=== PATIENT | male | born 1940 | race Caucasian/White ===

== ENCOUNTER 2019-09-02 09:56 | Outpatient (CLI) | payer OTHER, SELFPAY ==
--- NOTE | ~2019-09-02 | CT_ITS ---
EXAMINATION: CT brain wo con EXAM DATE: 09/02/2019 10:19 INDICATION: Right frontal headache. Hypertension. TECHNIQUE: Spiral CT of the head was performed without contrast. Axial, coronal and sagittal images were reviewed. The dose-length product (DLP) for this examination was 605.33 mGy-cm. The exposure w as tailored according to patient size, and iterative reconstruction (ASIR) was used as additional dos e reduction technique. There is no prior study for comparison. FINDINGS: There is no acute intraparenchymal hemorrhage. No evidence of intraparenchymal brain mass lesion. No evidence of acute infarction. Please note that initial head CT has limited sensitivity f or small or acute infarctions. There is mild periventricular and subcortical hypodensity, nonspecific but probably related to small vessel ischemic disease. There is mild prominence of the sulci and v entricles related to cerebral atrophy. There is intracranial carotid arteriosclerosis. There are n o extra-axial collections. There is no mass effect or midline shift. Patient has had bilateral ocul ar lens surgery. Soft tissue is unremarkable. Bilateral maxillary sinus window procedures, chronic sinus wall thickening from history of chronic si nusitis. There is mild mucoperiosteal thickening. The mastoid air cells are well aerated. IMPRESSION: 1. No acute intracranial findings. 2. Chronic age related findings. Reviewed, dictated and finalized at location B. 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
== END 2019-09-02 09:57 | disposition home or self-care (01) ==
PROVIDERS: PCP Internal Medicine; Visit Provider Nurse Practitioner
DX: G44.52 New daily persistent headache (NDPH) (principal)
CPT/HCPCS: 70450

== ENCOUNTER 2020-01-09 07:47 | Outpatient (CLI) | payer OTHER, SELFPAY ==
--- NOTE | 2020-01-09 07:53 | ECHO_ITS ---
Patient Info Name: Hu Jasmine Age: 79 years : 1940 Gender: Male Ht: 71 in Wt: 178 lbs BSA: 2.02 m2 HR: 59 bpm BP: 156 / 87 mmHg Heart Rhythm: Sinus Rhythm Technical Quality: Good Exam Date: 01/09/2020 7:56 AM Exam Location: [facility] Patient Status: Outpatient Admit Date: 01/09/2020 Staff Ordering Physician: Margarito Cao DO Perioperative Tech: Joanie Fields RDCS Attending Provider: Margarito Cao DO Referring Physician: Kiley BOWSER; Exam Type: CA echo doppler color flow Study Info Indications I48.91 - UNSPECIFIED ATRIAL FIBRILLATION Complete two-dimensional, color flow and Doppler transthoracic echocardiogram is performed. Summary 1. Left ventricular chamber dimension is mildly enlarged. 2. Left ventricular systolic function is mildly reduced, estimated at 40-45%. 3. There is trace aortic valve regurgitation. 4. There is mild mitral valve regurgitation. 5. Left atrial chamber dimension is severely enlarged. 6. Pt in sinus rhythm at the time of this exam. Left Ventricle Left ventricular chamber dimension is mildly enlarged. Left ventricular systolic function is mildly reduced, estimated at 40-45%. Left ventricular septal wall motion is abnormal with septal motion related to bundle branch block. The left ventricular diastolic function is grade I diastolic dysfunction. Right Ventricle Right ventricular chamber dimension is normal. Left Atria Left atrial chamber dimension is severely enlarged. Right Atria Right atrial chamber dimension is mildly enlarged. Aortic Valve The aortic valve is trileaflet. There is mild aortic valve sclerosis. There is trace aortic valve regurgitation. Pulmonic Valve The pulmonic valve is not well visualized. Mitral Valve The mitral valve has normal leaflets. There is mild mitral valve regurgitation. Tricuspid Valve The tricuspid valve leaflets are normal. Pericardium/Pleural The pericardium appears normal. Aorta The aortic root size at the sinus of Valsalva is normal. Left Ventricular Outflow Tract Name Value Normal LVOT 2D LVOT Diameter 2.1 cm LVOT Doppler LVOT Peak Gradient 4 mmHg LVOT Mean Gradient 3 mmHg LVOT VTI 28 cm LVOT VTI/AV VTI Ratio 0.6 LVOT Stroke Volume 102 ml LVOT CO 5.5 l/min LVOT CI 2.7 l/min/m2 Pulmonic Valve Name Value Normal RVOT Doppler RVOT Peak Gradient 3 mmHg PV Doppler PV Peak Gradient 6 mmHg Mitral Valve Name Na
== END 2020-01-09 07:48 | disposition home or self-care (01) ==
PROVIDERS: PCP Internal Medicine; Visit Provider Internal Medicine
DX: I48.91 Unspecified atrial fibrillation (principal); I34.0 Nonrheumatic mitral (valve) insufficiency
CPT/HCPCS: 93306

== ENCOUNTER 2020-05-11 01:07 | Outpatient (CLI) | payer OTHER, SELFPAY ==
[2020-05-11 20:27] LABS: SARS-CoV-2 RNA PCR Negative
== END 2020-05-11 01:08 | disposition home or self-care (01) ==
LOC: ANHCOVIDDT 01:07
PROVIDERS: PCP Internal Medicine; Visit Provider Specialist
DX: Z01.812 Encounter for preprocedural laboratory examination (principal); Z20.828 Contact with and (suspected) exposure to other viral communicable diseases
CPT/HCPCS: 87635; C9803; U0003

== ENCOUNTER 2020-05-14 05:21 | Day surgery (SDC) | payer OTHER, SELFPAY ==
[2020-05-11 12:59] VITALS: BMI 24.5
[2020-05-14] VITALS (15 sets, daily range): BP systolic 138–161; BP diastolic 66–83; PULSE 56–70; RESP 13–20; TEMP 36.4–37.1; O2SAT 95–97; BMI 25.1
--- NOTE | 2020-05-14 07:00 | SUR.PREOP ---
ARRIVES AMBULATORY TO [facility] 4 W/ AT SIDE FOR SCHEDULED C W/ DR. PADGETT. DENIES CP OR SOB ON ARRIVAL. A&OX4. STEADY GAIT. ORIENTED TO ROOM, PLAN OF CARE, PROCEDURE. STATES TAKES PERITONEAL DIALYSIS DAILY; COMPLETED THIS AM. HAS ABDOMINAL PD CATHETER INTACT. IV STARTED, LABS SENT, VS OBTAINED, SKIN PREP COMPLETED, PULSES MARKED, CONSENT SIGNED. VERIFIED LAST DOSE OF COUMADIN WAS 05/08/2020. WILL CONTINUE TO MONITOR.
[2020-05-14 07:26] LABS: Basophils Percent Auto 0.4 % (0.2-1.2); Eosinophils Absolute Auto 0.6 K/mm3 (0-0.3); Eosinophils Percent Auto 6.7 % (0-4.4); Hematocrit 37.1 % (42.0-52.0); Hemoglobin 12.6 g/dL (14.0-18.0); Immature Granulocyte Absolute 0.03 K/mm3 (0.00-0.031); Immature Granulocyte Percent A 0.4 % (0-0.5); Lymphocytes Percent Auto 24.3 % (18.3-44.2); Mean Corpuscular Hemoglobin 31.5 pg (26-34); Mean Corpuscular Volume 92.8 fl (80-100); Mean Platelet Volume 10.6 fl (7.4-10.4); Monocytes Absolute Auto 1.2 K/mm3 (0.1-0.6); Monocytes Percent Auto 15.1 % (2.6-8.5); Neutrophils Absolute Auto 4.4 K/mm3 (1.3-6.7); Neutrophils Percent Auto 53.1 % (45.5-73.1); Platelet Count Result 165 k/mm3 (150-375); Red Cell Distribution Width 12.9 % (11.5-14.5); White Blood Count 8.2 K/mm3 (4.5-10.0)
[2020-05-14 07:34] LABS: INR 1.1; Prothrombin Time 14.3 Seconds (11.1-14.7)
[2020-05-14 07:37] LABS: Anion Gap 13 mmol/L (8-16); Blood Urea Nitrogen 49 mg/dL (9-20); Carbon Dioxide 26 mmol/L (22-30); Chloride 100 mmol/L (98-107); Estimated CRCL calculation 8 ml/min; Estimated Glomerular Filt Rate 7; Glucose 115 mg/dL (75-110); Potassium 3.7 mmol/L (3.4-5.0); Sodium 139 mmol/L (137-145)
--- NOTE | 2020-05-14 08:20 | SUR.PREOP ---
DR. PADGETT TO BEDSIDE TO SEE PT.
--- NOTE | 2020-05-14 09:20 | P.PCNCC_ITS ---
Cardiac Cath Procedure Note Date of procedure:: 05/14/20 Performing physician:: Gilberto Gonzalez MD Indication:: Coronary artery disease, previous bypass grafting evaluation prior to renal transplant Brief clinical history:: this is a 80-year-old man who underwent bypass grafting 20 years ago for treatment of multivessel coronary artery disease. He is asymptomatic of ischemic symptoms. His current procedure is being scheduled at the request of renal transplant service at [facility] as he is being considered considered a candidate for renal transplantation. Procedure Procedure performed:: Coronary angiography vein graft angiography radial artery graft angiography mammary artery graft angiography Sedation/Medication given:: fentanyl 50 mg Versed 2 mg case start time 8:46 a.m. case end time 9:10 a.m. sedation provided by Ava Burger RN, trained observer Access site:: right femoral artery Estimated blood loss:: 10-15 cc Procedure note:: patient was brought to the cardiac catheterization lab in the postabsorptive state the right femoral triangle was prepared and draped the usual fashion. Anesthesia was provided with 1% lidocaine infiltrated locally. Using the modified Seldinger technique the right femoral artery was punctured and a 5 [place] vascular sheath was placed. After this left heart catheterization was carried out. I utilized a 5 [place] FL4 catheter to engage inject the left coronary artery in multiple projections. After this I used a 5 5 [place] JR4 catheter to inject the right coronary artery, the vein graft to the RCA and the radial artery graft to the OM. A 5 [place] IM catheter was used to engage the internal mammary graft. The case was then terminated and patient was brought to holding area for manual sheath removal. He tolerated the procedure well there were no apparent complications. Findings:: Hemodynamics: Central aortic pressure 142/74 left main coronary artery is widely patent and significantly calcified the LAD is a medium caliber artery with mild proximal disease representing about 30-40% stenosis. There are 2 proximal diagonal branches that received filling which are free of significant disease. After this the [place] LAD is 100% occluded in its midportion circumflex is 100% occluded proximally right coronary artery is 100% occluded proximally saphenous vein graft to the RCA is a very large caliber segment of saphenous vein it is free of significant stenosis or degeneration. Its anastomosis into the distal RCA is patent and fills the distal right coronary system well radial artery graft to the 2nd OM is nicely patent it is smooth throughout its entire extent its proximal and distal anastomosis to the 2nd OM are nicely patent and fills this marginal branch with MICHAEL 3 flow. The remainder of the circumflex is not perfused. Left internal mammary graft to the LAD is medium caliber IM its distal anastomosis to the mid LAD is nicely patent and fills the LAD from the point of occlusion down to the apex without any occlusions there is minimal atherosclerosis in the distal portion of the LAD which is grafted Conclusion:: 1. multivessel coronary artery disease with mid occlusion of the LAD, proximal occlusion of the circumflex, proximal occlusion of the RCA. 2. Patent [place] to the LAD 3. patent radial artery graft to the 2nd OM 4. patent saphenous vein graft to the RCA Gilberto Gonzalez MD [facility]
--- NOTE | 2020-05-14 09:25 | SUR.PHASEII ---
BEGIN PHASE II RECOVERY. RETURNS TO HOUSING OFFICER 4 FROM BLEND TECHNICIAN S/P [facility] W/ DR. PADGETT. 5FR SHEATH INTACT R. FEM ARTERY. SITE SOFT, NONTENDER. NO BLEEDING OR HEMATOMA NOTED. R. PEDAL PULSE PALP. REVIEWED PLAN FOR SHEATH REMOVAL AND DISCUSSED BEDREST ACTIVITY RESTRICTIONS. VSS. MONITOR SR W/ 1ST DEG BLOCK AND PAC'S. WILL CONTINUE TO MONITOR. DR. PADGETT TO BEDSIDE TO SPEAK W/ PT AND .
--- NOTE | 2020-05-14 09:53 | SUR.PHASEII ---
MANUAL 5FR SHEATH PULL R. GROIN SITE PER PROTOCOL BY THIS RN UNTIL HEMOSTASIS ACHIEVED TO SITE. FIRM STEADY PRESSURE MAINTAINED TO SITE. TOLERATING WELL.
--- NOTE | 2020-05-14 10:23 | SUR.PHASEII ---
HEMOSTASIS ACHIEVED AFTER 30 MINUTES MANUAL PRESSURE HOLD TO R. GROIN PUNCTURE SITE. TOLERATED WELL. SITE DRESSED W/ GUAZE AND TEGADERM. SITE SOFT, NONTENDER. NO SIGNS OF BLEEDING OR HEMATOMA NOTED. AGAIN REVIEWED BEDREST ACTIVITY RESTRICTIONS W/ PT AND . WILL CONTINUE TO MONITOR.
--- NOTE | 2020-05-14 14:30 | SUR.PHASEII ---
BEDREST COMPLETE AT THIS TIME. SMALL BLOODY OOZE/SHADOW NOTED ON EDGE OF GUAZE DRESSING UPON GETTING OOB TO BATHROOM. OTHERWISE TOLERATED ACTIVITY WELL AND VSS. RETURNED TO CHAIR. WILL CONTINUE TO MONITOR.
--- NOTE | 2020-05-14 15:00 | SUR.PHASEII ---
INCREASED BLOODY OOZE TO R. GROIN DRESSING NOTED. SITE REMAINS SOFT, NONTENDER. NO ACTIVE BLEEDING OR HEMATOMA NOTED. VSS. PT. RETURNED TO BED BREIFLY AND GUAZE AND TEGADERM DRESSING TO R. GROIN PUNCTURE SITE CHANGED. WHEN DRESSING OFF, NO OOZE OR DRAINAGE FORM PUNCTURE SITE NOTED. RETURNED TO CHAIR AFTER DRESSING CHANGE. WILL CONTINUE TO MONITOR. DR. PADGETT NOTIFIED. NO NEW ORDERS.
--- NOTE | 2020-05-14 16:10 | SUR.PHASEII ---
NO FURTHER OOZE NOTED FROM R. GROIN PUNCTURE SITE. GUAZE AND TEGADERM DRESSING REMAINS C/D/I. AREA OTHERWISE CLEAR. DRESSING FOR DISCHARGE HOME.
--- NOTE | 2020-05-14 16:30 | SUR.PHASEII ---
END PHASE II RECOVERY. REVIEWED ALL DISCHARGE INSTRUCTIONS AND FOLLOW UP CARE W/ PT AND HIS . ALL QUESTIONS ANSWERED. VOICED UNDERSTANDING OF ALL. DISCHARGED HOME, OUT VIA WC TO 'S WAITING CAR, WITH ALL PERSONAL BELONGINGS AND DISCHARGE PACKET. NO C/O VOICED. NO DISTRESS NOTED.
== END 2020-05-14 16:30 | disposition home or self-care (01) ==
PROVIDERS: PCP Internal Medicine; Visit Provider Specialist
DX: I25.10 Atherosclerotic heart disease of native coronary artery without angina pectoris (principal); Z95.1 Presence of aortocoronary bypass graft; I12.0 Hypertensive chronic kidney disease with stage 5 chronic kidney disease or end stage renal disease; I48.91 Unspecified atrial fibrillation; Z99.2 Dependence on renal dialysis; N18.6 End stage renal disease
CPT/HCPCS: 36415; 80048; 85025; 85610; 93455; C1769; C1887; C1894; J0461; J1644; J2250; J3010; J7040

== ENCOUNTER 2020-08-04 01:29 | Outpatient (CLI) | payer OTHER, SELFPAY ==
[2020-08-04 18:46] LABS: SARS-CoV-2 RNA PCR Negative
== END 2020-08-04 01:30 | disposition home or self-care (01) ==
LOC: ANHCOVIDDT 01:29
PROVIDERS: Family Provider Internal Medicine; PCP Internal Medicine; Visit Provider Internal Medicine Gastroenterology
DX: Z01.812 Encounter for preprocedural laboratory examination (principal); Z20.822 Contact with and (suspected) exposure to COVID-19
CPT/HCPCS: C9803; U0003; U0005

== ENCOUNTER 2020-08-07 02:04 | Day surgery (SDC) | payer OTHER, SELFPAY ==
[2020-07-31 15:18] VITALS: BMI 25.2
[2020-08-07 11:13] VITALS: BP 141/66; PULSE 63; RESP 20; TEMP 36.3; O2SAT 98
[2020-08-07] MEDS: SODIUM CHLORIDE 0.9% IV 500 ML 10 ML IV CONT (11:23)
--- NOTE | 2020-08-07 11:27 | WPDANESEPPF ---
Anes - Initial Pre Proc Eval Procedure: Operation Date: 08/07/20 12:30 Proposed Procedures p Screening Colonoscopy - Juan Miguel Benitez MD Date/Time: 08/07/20 11:27 Surgeon: Juan Miguel Benitez MD Pre Op Diagnosis: neoplasm screening Patient Data Age: 80 Gender: M Height: 5 ft 11 in Weight: 79.5 kg Last Vital Signs Temp 97.3 F L 08/07/20 11:13 Pulse 63 08/07/20 11:13 Resp 20 08/07/20 11:13 BP 141/66 H 08/07/20 11:13 Pulse Ox 98 08/07/20 11:13 Allergies Allergy/AdvReac Type Severity Reaction Status Date / Time prednisone Allergy Irritable Verified 08/07/20 11:12 Home Medications Medication Instructions Recorded Confirmed Type vitamin B complex-vitamin C-folic 1 tablet PO DAILY 07/15/19 07/31/20 History acid 0.8 mg tablet simvastatin 80 mg tablet 80 mg PO DAILY 09/02/19 07/31/20 History furosemide 40 mg PO DAILY 05/11/20 07/31/20 History cholecalciferol (vitamin D3) 125 mcg PO DAILY 05/14/20 07/31/20 History warfarin 5 mg tablet 5 mg PO DAILY #30 tablet 07/30/20 07/31/20 Rx Patient hx anesthesia problems: none Family hx anesthesia problems: none PMFSH Past Medical History Medical History (Updated 07/17/20 @ 08:54 by Margarito Cao DO) Arthritis Asthma Atrial fibrillation Bradycardia CAD in [place] artery COPD (chronic obstructive pulmonary disease) Coronary artery disease ESRD on peritoneal dialysis Gout Hyperlipidemia Hypertension Kidney disease Mixed hyperlipidemia PHONG on CPAP Prediabetes Right ear impacted cerumen Rosacea URI, acute Surgical History Surgical History History of sinus surgery Hx of CABG Family History Family History Sibling Diabetes mellitus Mother Patient's mother is Hypertension Other Family history of coronary artery disease Social History Social History Smoking packs per day: 0.5 Smoking cigarettes per day: 10.0 Years smoked: 5 Smoking pack-years: 2.50 Smoking status: Former smoker Tobacco type: cigarettes Second hand tobacco smoke exposure: No Smoking end date: 07/06/1967 Alcohol intake: current Alcohol use details: 4 Substance use type: does not use Living arrangements: with family Spiritual care concerns: No Anes - Eval Final PreProcedure Day of Procedure 08/07/20 11:27 Patient weight: overweight Heart: regular rate and rhythm Lungs: clear to auscultation Airway: Mallampati scale class III Neurological: alert and oriented Last oral intake: >/= 8 hours ASA classification: III Emergent: no Anesthetic plan: proceed Anesthesia type and monitoring: general GIVS and standard monitoring Informed Consent: The patient's anesthetic plan and its attendant risks and benefits were discussed with the patient/family/POA. Questions were solicited and answers provided to the satisfaction of the patient/family/POA.
[2020-08-07 12:44] VITALS: BP 114/67; PULSE 61; RESP 17; O2SAT 97
--- NOTE | 2020-08-07 12:44 | PM.HPGS ---
History of Present Illness History of Present Illness Consent: Risks, benefits, and alternatives have been discussed and questions answered. Patient agrees to proceed with procedure. Chief complaint: neoplasm screening Narrative: Hu Jasmine is a 80 year old male here for screening colonoscopy, last one about 11 years ago. Review of Systems Constitutional: Constitutional: Denies headache(s) and Denies weakness Eyes: Eyes: Denies blurry vision ENT: Reports Normal hearing present, Denies headache(s) and Denies neck pain Cardiovascular: Cardiovascular: Denies chest pain and Denies dyspnea Respiratory: Respiratory: Denies dyspnea Gastrointestinal: Gastrointestinal: Reports no additional gastrointestinal complaints Genitourinary: Genitourinary: Denies dysuria Musculoskeletal: Musculoskeletal: Denies neck pain Integumentary/Breasts: Skin/Breast: Denies dry skin Neurologic: Reports Normal hearing present, Denies headache(s) and Denies weakness Psychiatric: Psychiatric: Denies anxiety Endocrine: Endocrine: Denies change in body appearance Hematologic/Lymphatic: Hematologic/Lymphatic: Denies easy bleeding Allergic/Immunologic: Allergic/Immunologic: Denies urticaria PMF Past Medical History Medical History (Updated 08/07/20 @ 12:45 by Juan Miguel Benitez MD) Arthritis Asthma Atrial fibrillation Bradycardia CAD in [place] artery Colon cancer screening COPD (chronic obstructive pulmonary disease) Coronary artery disease ESRD on peritoneal dialysis Gout Hyperlipidemia Hypertension Kidney disease Mixed hyperlipidemia PHONG on CPAP Prediabetes Right ear impacted cerumen Rosacea URI, acute Surgical History Surgical History History of sinus surgery Hx of CABG Family History Family History Sibling Diabetes mellitus Mother Patient's mother is Hypertension Other Family history of coronary artery disease Social History Social History Smoking packs per day: 0.5 Smoking cigarettes per day: 10.0 Years smoked: 5 Smoking pack-years: 2.50 Smoking status: Former smoker Tobacco type: cigarettes Second hand tobacco smoke exposure: No Smoking end date: 07/06/1967 Alcohol intake: current Alcohol use details: 4 Substance use type: does not use Living arrangements: with family Spiritual care concerns: No Meds Home Medications and Allergies Home Medications Medication Instructions Recorded Confirmed Type vitamin B complex-vitamin C-folic 1 tablet PO DAILY 07/15/19 07/31/20 History acid 0.8 mg tablet simvastatin 80 mg tablet 80 mg PO DAILY 09/02/19 07/31/20 History furosemide 40 mg PO DAILY 05/11/20 07/31/20 History cholecalciferol (vitamin D3) 125 mcg PO DAILY 05/14/20 07/31/20 History warfarin 5 mg tablet 5 mg PO DAILY #30 tablet 07/30/20 07/31/20 Rx Allergies Allergy/AdvReac Type Severity Reaction Status Date / Time prednisone Allergy Irritable Verified 08/07/20 11:12 Vital Signs Vital Signs - 24 hr 08/07/20 11:13 Temperature 97.3 F L Pulse Rate 63 Respiratory Rate 20 Blood Pressure 141/66 H Pulse Oximetry 98 Exam Const: General: comfortable and no acute distress HENMT: General nose exam: Normal nares present Eyes: General: appearance normal, both eyes and all related structures Neck: Neck: no JVD Resp: Auscultation: clear to auscultation bilaterally Cardio: Rate: regular rate Rhythm: regular rhythm GI: Inspection: non-distended GI Palp: Yes Soft to palpation Skin: General skin exam: normal color Neuro: General: gait normal Speech: normal speech Extrem: General: normal to inspection Psych: Mental Status: mental status grossly normal Assessment and Plan Assessment and plan (1) Colon cancer screening: Code(s): Z12.11 -
--- NOTE | 2020-08-07 12:50 | SUR.OPER ---
Resolution clip to cecal polyp Lot [id number], Exp Date: 2023-05-18
[2020-08-07 12:54] VITALS: BP 119/65; PULSE 58; RESP 22; O2SAT 96
[2020-08-07 13:04] VITALS: BP 123/81; PULSE 59; RESP 14; O2SAT 97
== END 2020-08-07 13:24 | disposition home or self-care (01) ==
PROVIDERS: Family Provider Internal Medicine; PCP Internal Medicine; Visit Provider Internal Medicine Gastroenterology
PROC: 0DJD8ZZ Inspection of Lower Intestinal Tract, Via Natural or Artificial Opening Endoscopic (ICD-10-PCS; CPT 45378; principal; 2020-08-07 12:30)
DX: Z12.11 Encounter for screening for malignant neoplasm of colon (principal); D12.0 Benign neoplasm of cecum; D12.2 Benign neoplasm of ascending colon; D12.3 Benign neoplasm of transverse colon; D12.4 Benign neoplasm of descending colon; K57.30 Diverticulosis of large intestine without perforation or abscess without bleeding; K64.8 Other hemorrhoids; I48.91 Unspecified atrial fibrillation; I25.10 Atherosclerotic heart disease of native coronary artery without angina pectoris; J44.9 Chronic obstructive pulmonary disease, unspecified; I12.0 Hypertensive chronic kidney disease with stage 5 chronic kidney disease or end stage renal disease; N18.6 End stage renal disease; Z99.2 Dependence on renal dialysis; R73.03 Prediabetes; M10.9 Gout, unspecified; E78.2 Mixed hyperlipidemia; G47.33 Obstructive sleep apnea (adult) (pediatric); Z79.01 Long term (current) use of anticoagulants; Z95.1 Presence of aortocoronary bypass graft; Z87.891 Personal history of nicotine dependence
CPT/HCPCS: 45381; 45385; 88305; C9803; J2704; J7040; U0003; U0005

== ENCOUNTER 2020-12-20 14:14 | Outpatient (CLI) | payer OTHER, SELFPAY ==
--- NOTE | ~2020-12-20 | US_ITS ---
EXAMINATION: US venous doppler LE RT EXAM DATE: 12/20/2020 15:13 INDICATION: Right leg pain, swelling. TECHNIQUE: Multiple grayscale, color flow and Doppler images of the right lower extremity deep venous system were obtained and reviewed. Correlation is made to 05/05/2018. FINDINGS: The right common femoral, femoral and profunda veins demonstrate normal color flow, respira tory variation, augmentation and compressibility. Compressibility, color flow confirmed within the r ight popliteal, posterior tibial, peroneal, and greater saphenous veins. There is a right-sided Bake r's cyst measuring 6.5 x 1.8 x 3.8 cm. IMPRESSION: 1. No right lower extremity deep venous thrombosis. 2. Moderate-sized Cortez's cyst. Reviewed, dictated and finalized at location B.
== END 2020-12-20 14:15 | disposition home or self-care (01) ==
LOC: ANHIMG 14:21
PROVIDERS: PCP Internal Medicine; Visit Provider Internal Medicine Nephrology
DX: R60.1 Generalized edema (principal); M71.22 Synovial cyst of popliteal space [Baker], left knee
CPT/HCPCS: 93971

== ENCOUNTER 2021-05-08 14:16 | Inpatient (IN) | payer OTHER, SELFPAY ==
[2021-05-08] VITALS (16 sets, daily range): BP systolic 125–154; BP diastolic 63–82; PULSE 57–76; RESP 12–23; TEMP 36.9–37.2; O2SAT 94–100; BMI 28.3
--- NOTE | ~2021-05-08 | XR_ITS ---
EXAMINATION: XR fl guide central line place DATE: 05/09/2021 12:53 INDICATION: Dialysis catheter insertion TECHNIQUE: 2 fluoroscopic images of the right side of the chest were obtained during procedure perfor med by Dr. Walden. Radiologist was not present for the imaging or procedure. The amount of fluorosco py time used during this procedure was 0.9 minutes. COMPARISON: 11/24/2018 FINDINGS: Images demonstrate placement of a large-bore dual-lumen right internal jugular central venous dialysi s catheter with distal tip at the superior cavoatrial junction. Visualized portions of the right lung are unremarkable. Median sternotomy wires consistent with prior coronary artery bypass grafting. IMPRESSION: 1. Right internal jugular dual-lumen central venous dialysis catheter with distal tip at the superior cavoatrial junction. Reviewed, dictated and finalized at location A. IMPRESSION: 1. Right internal jugular dual-lumen central venous dialysis catheter with dist al tip at the superior cavoatrial junction.
--- NOTE | ~2021-05-08 | XR_ITS ---
EXAMINATION: XR chest port-a-cath/central INDICATION: Dialysis catheter insertion TECHNIQUE: Portable AP chest at 1400 hours COMPARISON: 11/24/2018 FINDINGS: A right internal jugular dialysis catheter ends with its tip in the proximal right atrium. There is a small left pleural effusion. Mild diffuse interstitial pattern is present. Cardiomegaly is noted. There are changes of cardiac surgery. No pneumothorax is identified. IMPRESSION: 1. Right internal jugular dialysis catheter with its tip in the proximal right atrium. No pneumothora x. 2. Cardiomegaly with mild pulmonary edema. 3. Small left pleural effusion. Reviewed, dictated and finalized at location B. IMPRESSION: 1. Right internal jugular dialysis catheter with its tip in the proximal right atrium. No pneumothorax. 2. Cardiomegaly with mild pulmonary edema. 3. Small left pleural effusion.
--- NOTE | ~2021-05-08 | CT_ITS ---
EXAMINATION: CT abdomen pelvis wo con DATE: 05/08/2021 19:24 INDICATION: Epigastric abdominal pain for 2 weeks. Lack stools. TECHNIQUE: Computed tomography (CT) of the abdomen and pelvis was performed without intravenous contr ast. Automated exposure control and iterative reconstruction technique were employed. Exam dose: 105 0.10 mGy-cm total exam DLP. COMPARISON: None. FINDINGS: Status post sternotomy. Cardiomegaly. No pericardial effusion. Small bilateral pleural effusions. Bilateral lower lobe predominantly dependent atelectasis. There is mild intraperitoneal free air is identified primarily under the right diaphragm and anterior to the liver. Consider ruptured hollow intra-abdominal viscus. At least one small gallstone is suggested. Consider gallbladder ultrasound examination. No gallbladde r wall thickening or pericholecystic fluid or fat stranding. The liver, spleen, pancreas, and adrenal glands are unremarkable. There is severe bilateral renal atrophy. 1.7 cm hyperdense lesion of the right kidney is likely a hyperdense cyst. At least a couple of smalle r cysts of the right kidney are suggested. 2 cm upper pole left renal probable cyst. Pinpoint nonobstructing left renal calculus. No other urinary tract calculus or hydroureteronephrosis . There is extensive abdominal aortic and renal and prominent superior mesenteric artery as well as enmanuel ac artery calcification. No abdominal aortic aneurysm. No intraperitoneal or retroperitoneal or pelvi c mass lesion or adenopathy or ascites. Normal appendix. Prominent amount of fecal material in the colon. There are numerous diverticula of t he left colon; no CT evidence of diverticulitis. No bowel obstruction, bowel wall thickening, pneumat osis or intraperitoneal free air. The urinary bladder is unremarkable. There is prostate enlargement. There are bilateral small fat-containing inguinal hernias. A dialysis catheter is noted in the right lower abdomen and pelvic area. Degenerative changes of the thoracic and lumbar spine. Bilateral hip osteoarthritis. IMPRESSION: Mild intraperitoneal free air; consider ruptured hollow intra-abdominal viscus. Alternat ively, this may be iatrogenic; there is a dialysis catheter. Clinical correlation is advised Suspected cholelithiasis; consider gallbladder ultrasound correlation severe bilateral renal atrophy Bilateral renal cysts Pinpoint and fibulas renal calculus Normal appendix Diverticulosis of the left colon; no CT evidence of diverticulitis Bilateral small fat-containing inguinal hernias Reviewed, dictated and finalized at Location A. Reviewed, dictated and finalized at location A. IMPRESSION: Mild intraperitoneal free air; consider ruptured hollow intra-abdo malathi viscus. Alternatively, this may be iatrogenic; there is a dialysis cathet er. Clinical correlation is advised Suspected cholelithiasis; consider gallbladder ultrasound correlation severe bi lateral renal atrophy Bilateral renal cysts Pinpoint and fibulas renal calculus Normal appendix Diverticulosis of the left colon; no CT evidence of diverticulitis Bilateral small fat-containing inguinal hernias
[2021-05-08 17:57] LABS: Basophils Percent Auto 0.2 % (0.2-1.2); Eosinophils Absolute Auto 0.1 K/mm3 (0-0.3); Eosinophils Percent Auto 1.6 % (0-4.4); Hematocrit 27.9 % (42.0-52.0); Hemoglobin 9.1 g/dL (14.0-18.0); Immature Granulocyte Absolute 0.04 K/mm3 (0.00-0.031); Immature Granulocyte Percent A 0.5 % (0-0.5); Lymphocytes Absolute Auto 0.88 K/mm3 (0.9-3.2); Lymphocytes Percent Auto 10.7 % (18.3-44.2); Mean Corpuscular HGB Conc 32.6 g/dl (32-36); Mean Corpuscular Hemoglobin 31.8 pg (26-34); Mean Corpuscular Volume 97.6 fl (80-100); Mean Platelet Volume 11.8 fl (7.4-10.4); Monocytes Absolute Auto 1.3 K/mm3 (0.1-0.6); Monocytes Percent Auto 15.2 % (2.6-8.5); Neutrophils Absolute Auto 5.9 K/mm3 (1.3-6.7); Neutrophils Percent Auto 71.8 % (45.5-73.1); Platelet Count Result 195 k/mm3 (150-375); Red Blood Count 2.86 M/mm3 (4.6-6.20); Red Cell Distribution Width 14.8 % (11.5-14.5); White Blood Count 8.2 K/mm3 (4.5-10.0)
[2021-05-08 18:29] LABS: Lactic Acid Reflex 0.9 mmol/L (0.7-2.1)
[2021-05-08 18:31] LABS: INR 1.2
[2021-05-08 18:32] LABS: Partial Thromboplastin Time 35.5 SECONDS (22.3-36.8)
[2021-05-08] MEDS: MORPHINE SULFATE (*CRX) 4 MG/ML INJ IV PUSH (18:46)
[2021-05-08 18:55] LABS: Alanine Aminotransferase 26 U/L (4-50); Albumin Level 3.1 g/dL (3.5-5.1); Alkaline Phosphatase 95 U/L (38-126); Anion Gap 8 mmol/L (8-16); Aspartate Amino Transferase 31 U/L (17-59); Bilirubin,Total 0.5 mg/dL (0.2-1.3); Blood Urea Nitrogen 39 mg/dL (9-20); Calcium 9.5 mg/dL (8.4-10.2); Carbon Dioxide 34 mmol/L (22-30); Chloride 93 mmol/L (98-107); Estimated CRCL calculation 11 ml/min; Estimated Glomerular Filt Rate 10; Glucose 107 mg/dL (65-110); Lipase 29 U/L (23-300); Potassium 3.1 mmol/L (3.4-5.0); Sodium 135 mmol/L (137-145)
--- NOTE | 2021-05-08 19:13 | ED.GENADULT ---
HPI - General Adult General Chief complaint: Abdominal Pain Stated complaint: abd pain/pt see dr. zelaya Time Seen by Provider: 05/08/21 17:40 History of Present Illness HPI narrative: Patient is a 81-year-old male who presents ER with concerns for peritonitis. Reports 2 weeks ago patient had Pseudomonas grow out of his peritoneal dialysis alert fluid. He had been experiencing abdominal discomfort. He has been on IV antibiotics daily since then. Reports pain has been persistent and increasing over the last 2 days. He feels like his fluid is more cloudy. He discussed with his alteration tailor who recommended he come to the ER. He feels like he needs to be admitted to the hospital for a temporary hemodialysis catheter. Patient reports 19 pound weight gain with some abdominal distention as well that causes him to be short of breath. Endorses lower extremity edema. Patient also reports he is recently had dark black stool per rectum. This occurred 5 days ago when he discontinued his warfarin. He thinks his stool dark and again today but has not seen any bright red blood. Related Data Home Medications Medication Instructions Recorded Confirmed cholecalciferol (vitamin D3) 125 mcg PO DAILY 05/14/20 12/10/20 B complex-vitamin C-folic acid tablet 05/08/21 [Shawna-Cloton] hydralazine 05/08/21 nifedipine PO 05/08/21 sevelamer carbonate 05/08/21 simvastatin mg 05/08/21 warfarin 05/08/21 Allergies Allergy/AdvReac Type Severity Reaction Status Date / Time prednisone AdvReac Irritable Verified 05/08/21 18:22 Review of Systems Review of Systems: All systems reviewed & are unremarkable except as noted in HPI and below Constitutional: Constitutional: Denies chills, Denies fever(s) and Denies weakness ENT: Denies nasal congestion and Denies sore throat Cardiovascular: Cardiovascular: Denies chest pain, Denies rapid heart rate and Denies radiating jaw, neck or arm pain Respiratory: Respiratory: Denies cough and Denies dyspnea Gastrointestinal: Gastrointestinal: Reports abdominal pain, Denies diarrhea, Denies nausea and Denies vomiting [facility] Past Medical History Medical History Arthritis Asthma Atrial fibrillation Bradycardia CAD in [place] artery Colon cancer screening COPD (chronic obstructive pulmonary disease) Coronary artery disease ESRD on peritoneal dialysis Gout Hyperlipidemia Hypertension Kidney disease Mixed hyperlipidemia PHONG on CPAP Prediabetes Right ear impacted cerumen Divina STEVENSONI, acute Surgical History Surgical History History of sinus surgery Hx of CABG Family History Family History Sibling Diabetes mellitus Mother Patient's mother is Hypertension Other Family history of coronary artery disease Social History Social History Smoking packs per day: 0.5 Smoking cigarettes per day: 10.0 Years smoked: 5 Smoking pack-years: 2.50 Tobacco type: cigarettes Second hand tobacco smoke exposure: No Smoking end date: 07/06/1967 Alcohol intake: current Drinks per week: 8 Alcohol use details: 4 Substance use type: does not use Spiritual care concerns: No Exam Narrative: GENERAL: Well-appearing, well-nourished, and in no acute distress. HEAD: Normocephalic, atraumatic. EYES: PERRL and EOMI. CHEST: Clear to auscultation. No respiratory distress. HEART: Regular rate and rhythm. Normal peripheral pulses. ABDOMEN: Soft, diffuse abdominal tenderness with guarding, nondistended, guaiac negative stool on HEAVENLY. EXTREMITIES: Normal range of motion. 2+ edema. SKIN: Warm, dry, no rash. NEURO: Alert and oriented x3. PSYCH: Normal mood and affect. Course Course Emergency Course: Discussed case with general surgery who is happy to follow.
--- NOTE | 2021-05-08 22:04 | PM.IMHP ---
H&P: HPI History of Present Illness Date/Time: 05/08/21 22:04 Chief Complaint: abdominal pain Narrative: Patient is a 81-year-old male who presents ER with ongoing abdominal pain and discomfort. He reports 2 weeks ago he started having abdominal pain and was diagnosed with peritonitis with Pseudomonas growing in the peritoneal fluid. He reports he might have acquired that while he was down in [place] and contaminated his peritoneal dialysis catheter with water out there. He denies having any fever may be some chills but no sweating at night time. He was started on antibiotic via dialysis catheter by his bush hog operator. He has been on peritoneal dialysis for few years. He had similar episode of peritonitis few years back when he was switched to hemodialysis. He reports in spite of getting antibiotic his abdominal pain has gotten worse and hence came to the ER for evaluation. He also reports he has gained about 20 lb with abdominal distension and has made him short of breath along with lower extremity edema. He also has atrial fibrillation and is on warfarin. He reports dark black stool per rectum intermittently in the recent past and had held his warfarin. He has not seen any bright red blood in his stool. He has started back his warfarin again and his INR level was 1.2. Stool guaiac test done in the ER was negative . He was planned to be started on IV antibiotics due to ongoing peritonitis and switch him over to hemodialysis while getting treated for this. General surgery has been consulted for placement off hemodialysis catheter in the morning and also removal of peritoneal dialysis catheter. Review of Systems Review of Systems: - CONSTITUTIONAL: Denies weight loss, Reports weight gain, denies fever and may have some chills. - HEENT: Denies changes in vision and hearing - RESPIRATORY: reports SOB and deniescough. - CV: Denies palpitations and CP. - GI: report abdominal pain, denies nausea, vomiting and diarrhea. - : Denies dysuria and urinary frequency. - MSK: Denies myalgia and joint pain. - SKIN: Denies rash and pruritus. - NEUROLOGICAL: Denies headache and syncope. - PSYCHIATRIC: Denies recent changes in mood. Denies anxiety and depression. All systems reviewed & are unremarkable except as noted in HPI and below Constitutional: Constitutional: Reports fatigue and Reports weakness Neurologic: Reports weakness Endocrine: Endocrine: Reports fatigue PMFSH Past Medical History Medical History Arthritis Asthma Atrial fibrillation Bradycardia CAD in [place] artery Colon cancer screening COPD (chronic obstructive pulmonary disease) Coronary artery disease ESRD on peritoneal dialysis Gout Hyperlipidemia Hypertension Kidney disease Mixed hyperlipidemia PHONG on CPAP Prediabetes Right ear impacted cerumen [place] URI, acute Surgical History Surgical History History of sinus surgery Hx of CABG Family History Family History (Updated 05/08/21 @ 23:31 by Zuly Lisa RN) Sibling Diabetes mellitus Mother Patient's mother is Hypertension Family history of coronary artery disease Father Family history of coronary artery disease Social History Social History Smoking packs per day: 0.5 Smoking cigarettes per day: 10.0 Years smoked: 5 Smoking pack-years: 2.50 Smoking status: Current some day smoker Tobacco type: cigarettes Second hand tobacco smoke exposure: No Smoking end date: 07/06/1965 Alcohol intake: current Drinks per week: 3 Alcohol use details: 4 Substance use: never Substance use type: does not use Spiritual care concerns: No Meds Home Medications and Allergies Home Medications Medication Instructions Recorded Confirmed Type cholecalciferol (vitamin D3)
[2021-05-08 23:26] LABS: Add Urine Microscopic? YES; Appearance Urine Clear (Clear); Bilirubin Urine Negative (Negative); Blood Urine Negative (Negative); Color Urine Yellow (Yellow); Glucose Urine UA Negative (Negative); Ketones Urine Negative (Negative); Leukocyte Esterase Ur Negative LEU/UL (Negative); Nitrate Urine Negative (Negative); Protein Urine 2+ mg/dL (Negative); RBC Urine 0-2 /hpf (0-2); Specific Grav Ur 1.013 (1.001-1.035); Urobilinogen Urine Negative mg/dL (<2.0); WBC Urine 0-3 /hpf
--- NOTE | 2021-05-08 23:27 | ADMGEN ---
This patient, Hu Jasmine, was admitted to 3 Med Surg Room 302-01at 2300. Patient/family oriented to hospital policies and general routines including ID bracelet, bed and alarms, visiting hours, pain management, procedures, bathroom and other care routines, personal items, smoking policy, room service/diet, and visiting hours. Information on how to activate the Rapid Response Team has been discussed. Patient/Family are encouraged to report perceived risks to care and to ask questions if they do not understand what they are told or what they should do.
[2021-05-09] VITALS (26 sets, daily range): BP systolic 96–148; BP diastolic 48–83; PULSE 48–109; RESP 11–20; TEMP 36–37.2; O2SAT 93–100
[2021-05-09] MEDS: MORPHINE SULFATE (*CRX) 4 MG/ML INJ IV PUSH ×2 (01:06→08:22)
[2021-05-09 06:16] LABS: Basophils Percent Auto 0.2 % (0.2-1.2); Eosinophils Absolute Auto 0.2 K/mm3 (0-0.3); Eosinophils Percent Auto 3.9 % (0-4.4); Hematocrit 26.7 % (42.0-52.0); Hemoglobin 8.7 g/dL (14.0-18.0); Immature Granulocyte Absolute 0.02 K/mm3 (0.00-0.031); Immature Granulocyte Percent A 0.4 % (0-0.5); Lymphocytes Absolute Auto 0.84 K/mm3 (0.9-3.2); Lymphocytes Percent Auto 15.5 % (18.3-44.2); Mean Corpuscular HGB Conc 32.6 g/dl (32-36); Mean Corpuscular Hemoglobin 31.8 pg (26-34); Mean Corpuscular Volume 97.4 fl (80-100); Mean Platelet Volume 11.8 fl (7.4-10.4); Monocytes Percent Auto 17.9 % (2.6-8.5); Neutrophils Absolute Auto 3.4 K/mm3 (1.3-6.7); Neutrophils Percent Auto 62.1 % (45.5-73.1); Platelet Count Result 167 k/mm3 (150-375); Red Blood Count 2.74 M/mm3 (4.6-6.20); Red Cell Distribution Width 14.8 % (11.5-14.5); White Blood Count 5.4 K/mm3 (4.5-10.0)
[2021-05-09 06:26] LABS: Anion Gap 6 mmol/L (8-16); Blood Urea Nitrogen 43 mg/dL (9-20); Calcium 9.2 mg/dL (8.4-10.2); Carbon Dioxide 33 mmol/L (22-30); Chloride 94 mmol/L (98-107); Estimated CRCL calculation 10 ml/min; Estimated Glomerular Filt Rate 9; Glucose 95 mg/dL (65-110); Magnesium 2.2 mg/dL (1.6-2.3); Sodium 133 mmol/L (137-145)
--- NOTE | 2021-05-09 07:09 | PM.CNNEP ---
Assessment and Plan Assessment and plan (1) ESRD on peritoneal dialysis: Code(s): N18.6 - End stage renal disease; Z99.2 - Dependence on renal dialysis Status: Acute Assessment and Plan: The patient has end-stage renal disease. He has been getting peritoneal dialysis. Unfortunately he developed Pseudomonas infection. This has not responded to antibiotics. He still has belly pain is spite of being on 2 weeks of intraperitoneal antibiotics. I think the catheter needs to come out. We consult surgery last night for them to do that today. He will need hemodialysis while this is all healing. So they will put in a tunneled dialysis catheter today. Currently he is on gentamicin plus Fortaz. His belly feels better already with the IV antibiotics. Long discussion with the patient. (2) Peritonitis associated with peritoneal dialysis: Code(s): T85.71XA - Infection and inflammatory reaction due to peritoneal dialysis catheter, initial encounter Status: Acute Assessment and Plan: The patient is on antibiotics now. PD catheter is going to be removed. (3) Fluid overload, unspecified: Code(s): E87.70 - Fluid overload, unspecified Status: Acute Assessment and Plan: The patient has volume overloaded. Will do a dialysis today to get some fluid off. 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 (5) Hypertension: Code(s): I10 - Essential (primary) hypertension Status: Acute Assessment and Plan: Blood pressure is doing well. 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 Will give Epogen. No need for iron because he has an infection (7) Renal osteodystrophy: Code(s): N25.0 - Renal osteodystrophy Status: Acute Assessment and Plan: Will check a phosphorus level in the morning. History of Present Illness Reason for Consult Consult date: 05/09/21 Chief Complaint Chief complaint: peritonitis History of Present Illness Narrative: Hu is a very pleasant 81-year-old gentleman who has end-stage renal disease on peritoneal dialysis nightly. He also has arthritis, prediabetes, sleep apnea on CPAP, hyperlipidemia, coronary disease, hypertension, hyperlipidemia, COPD, gout. The patient was doing well on PD until about 2 weeks ago or so when he developed belly pain. He had a cloudy bag. He was placed on antibiotics. Cultures grew Pseudomonas. His antibiotics were adjusted. Early on he seemed to improve, but then had recurrent pain. He has continued to have cloudy bags with pain. His peritoneal dialysis has not been as affective lately and he has gained about 20lb. He went to see Coco his PD nurse yesterday and he was swollen and short of breath and still had belly pain so he was sent to the ER. In the ER he was evaluated. He had belly pain. CT scan showed some intraperitoneal free air, bilateral renal atrophy with cysts, 1 small gallstone without gallbladder thickening or pericholecystic fluid or fat stranding, diverticulosis, inguinal hernias, small renal calculus. The patient just had peritoneal fluid cultures done as an outpatient by Coco. He was given gentamicin plus Fortaz last night. This morning he says he feels a little bit better. He has a little bit less belly pain but still hurts. He is still short of breath but does not need oxygen. He uses CPAP machine every night but lately he has been using during the day 2 because of his breathing. He has no chest pain. No fevers. Review of Systems Constitutional: Constitutional: Reports no additional constitutional complaints Eyes: Eyes: Reports no additional eye complaints ENT: Reports system reviewed and no additional complaints, except
[2021-05-09 07:13] LABS: INR 1.3; Prothrombin Time 16.1 Seconds (11.1-14.7)
--- NOTE | 2021-05-09 08:34 | PM.IMPN ---
Progress Note: A&P Assessment and Plan (1) Peritonitis: Code(s): K65.9 - Peritonitis, unspecified Status: Acute (2) Hypertension: Code(s): I10 - Essential (primary) hypertension Status: Acute (3) Hyperlipidemia: Code(s): E78.5 - Hyperlipidemia, unspecified Status: Acute (4) Coronary artery disease: Code(s): I25.10 - Atherosclerotic heart disease of [place] coronary artery without angina pectoris Status: Acute (5) ESRD on peritoneal dialysis: Code(s): N18.6 - End stage renal disease; Z99.2 - Dependence on renal dialysis Status: Acute (6) COPD (chronic obstructive pulmonary disease): Code(s): J44.9 - Chronic obstructive pulmonary disease, unspecified Status: Acute (7) Gout: Code(s): M10.9 - Gout, unspecified Status: Acute (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 Repeat cultures were obtained at [facility] that today as well which will need to be tracked. Nephrology on board started on ceftazidime and gentamicin. Pharmacy to dose gentamicin. Renally dose of ceftazidime. Peritoneal dialysis catheter likely needs to be removed. General surgery has been consulted from the ER. Will need to switch peritoneal dialysis to hemodialysis in the interim. This is a 2nd episode of peritonitis and patient wants to stick to peritoneal dialysis as renal replacement therapy. Nephrology has also been consulted from the ER. General surgery will place temporary hemodialysis catheter in the morning. # intraperitoneal free air likely iatrogenic due to his presence of dialysis catheter # end-stage renal disease on peritoneal dialysis Has status previous history of infected peritoneal dialysis catheter 06/2020 # coronary artery disease status post CABG in 2000 # atrial fibrillation on chronic anticoagulation with warfarin INR low as recently stopped his warfarin due to dark stool. We will resume his warfarin and monitor INR daily. # dark stools guaiac test in the ER was negative will continue to monitor # PHONG on CPAP # hypertension # hyperlipidemia # prediabetes # gout # COPD/asthma # DVT prophylaxis on warfarin loss up therapeutic INR will resume # full code status 05/09/21 seen by Nephro POC remove PD catheter insert TDC start HD while hospitalized, IV abx for Pseudomonas peritonitis cont current care potassium repletion per nephrology BP at goal ceftazidime and gentamicin -> anticipate adjustment when cath tip cx results Subjective Date/time seen: 05/09/21 08:34 seen in HD doing ok at bedside all questions answered Exam Narrative: GENERAL: Well-appearing, well-nourished, and in no acute distress. HEAD: Normocephalic, atraumatic. EYES: EOMI. CHEST: Clear to auscultation. No respiratory distress. HEART: tachycardia w murmur Normal peripheral pulses. ABDOMEN: Soft, diffuse abdominal tenderness without guarding, distended, peritoneal dialysis catheter removal site covered by gauze dressing EXTREMITIES: Normal range of motion. 2+ edema bilateral lower extremity SKIN: Warm, dry, no rash. NEURO: Alert and oriented x3. no focal neurological deficits PSYCH: Normal mood and affect. Objective Data Vital Signs Vital Signs: Vital Signs - 24 hr 05/08/21 17:03 05/08/21 18:13 05/08/21 18:16 Temperature 98.4 F Pulse Rate 63 69 67 Respiratory Rate 18 23 H 18 Blood Pressure 140/63 144/74 H 154/73 H Pulse Oximetry 100 95 97 05/08/21 18:31 05/08/21 19:01 05/08/21 19:46
--- NOTE | 2021-05-09 09:04 | WPDHPUPDATE1 ---
History and Physical Update Update Date/Time: 05/09/21 09:04 History and Physical has been reviewed, including an updated exam of the patient. There are NO changes in the patient's condition. Risks, benefits, and alternatives have been discussed and questions answered. Patient agrees to proceed with procedure.
--- NOTE | 2021-05-09 09:04 | PM.CNGS ---
Assessment and Plan Assessment and plan (1) ESRD on peritoneal dialysis: Onset Date: ~05/2021 Code(s): N18.6 - End stage renal disease; Z99.2 - Dependence on renal dialysis Status: Acute Assessment and Plan: this was the main reason for the patient's admission. I was consulted to remove the peritoneal dialysis catheter which may be associated with his peritoneal infection. Also to place a dialysis catheter to be used for his dialysis over the next few months. Treatment will continue for his peritonitis and if once resolved patient will discuss with Dr. Bennett or Kayleen regarding further possibilities of peritoneal dialysis and how he was doing on that and how he does on the current hemodialysis. If surgery is completed soon of patient may dialyze this afternoon. (2) Erythropoietin deficiency anemia: Code(s): D63.1 - Anemia in chronic kidney disease Status: Acute (3) Fluid overload, unspecified: Onset Date: ~05/2021 Code(s): E87.70 - Fluid overload, unspecified Status: Acute Assessment and Plan: [place] to be related to poor dialysis with his current peritoneal dialysis and attempted treatment of catheter related peritonitis. (4) Peritonitis associated with peritoneal dialysis: Code(s): T85.71XA - Infection and inflammatory reaction due to peritoneal dialysis catheter, initial encounter Status: Acute (5) Atrial fibrillation: Code(s): I48.91 - Unspecified atrial fibrillation Status: Acute (6) Hypertension: Code(s): I10 - Essential (primary) hypertension Status: Acute (7) CAD in [place] artery: Code(s): I25.10 - Atherosclerotic heart disease of [place] coronary artery without angina pectoris Status: Acute History of Present Illness Consult details Consult date: 05/09/21 Reason for consult: abdominal pain Requesting physician: Deven Beyer MD Narrative: The patient is a pleasant 81-year-old white male who has been using peritoneal dialysis catheter. On the way back from [place] after recent trip he apparently developed some infection with the peritoneum and the peritoneal dialysis catheter. Dr. Beyer states that as an outpatient this was Pseudomonas. He has been treating this with antibiotics in the peritoneal fluid dialysis fluid but has not improved. Therefore, he was seen here at the hospital CT scan done that did show some free air up underneath the diaphragm but patient was otherwise stable with slightly elevated white count. Therefore, decision has been made to remove the currently infected up peritoneal dialysis catheter and the patient will need dialysis because he has gained weight. Therefore we are planning to do the clean procedure 1st and put in a tunneled dialysis catheter. The patient has had a previous right-sided tunneled hemodialysis Review of Systems Review of Systems: All systems reviewed & are unremarkable except as noted in HPI and below (HPI) Constitutional: Constitutional: Reports as per HPI, Denies chills, Denies fever(s), Reports weakness and Reports weight gain Eyes: Eyes: Reports no additional eye complaints ENT: Reports Normal hearing present and Denies dizziness Cardiovascular: Cardiovascular: Reports no additional cardiovascular complaints, Denies chest pain and Denies irregular heart rhythm Comments: History of renal failure chronic Respiratory: Respiratory: Reports no additional respiratory complaints Gastrointestinal: Gastrointestinal: Reports no additional gastrointestinal complaints, Denies abdominal pain and Reports bloating Comments: Last had fluid come out his peritoneal catheter telephone appointment clerk on 05/08/2021. Genitourinary: Genitourinary: Denies hematuria Musculoskeletal: Musculoskeletal: Denies back pain Integumentary/Breasts: Skin/Breast: Reports system reviewed and no additional complaints, except as docu Neurologic: Reports Normal hearing present, Denies Abnormal speech
--- NOTE | 2021-05-09 10:50 | PC.NURSE ---
To OR per bed @ 1005.
--- NOTE | 2021-05-09 11:09 | WPDANESEPPF ---
Anes - Initial Pre Proc Eval Procedure: Operation Date: 05/09/21 11:30 Proposed Procedures p Insertion Tunneled Dialysis Catheter, Remove Peritoneal Dialysis Catheter - Jhonatan Walden MD Date/Time: 05/09/21 11:09 Surgeon: Fabiano Berry MD Pre Op Diagnosis: peritonitis Patient Data Age: 81 Gender: M Height: 1.8 m Weight: 92.3 kg Last Vital Signs Temp 98.1 F 05/09/21 10:47 Pulse 109 H 05/09/21 10:47 Resp 16 05/09/21 10:47 BP 135/69 05/09/21 10:47 Pulse Ox 99 05/09/21 10:47 Allergies Allergy/AdvReac Type Severity Reaction Status Date / Time prednisone AdvReac Irritable Verified 05/08/21 18:22 Home Medications Medication Instructions Recorded Confirmed Type hydralazine 100 mg PO BID 05/08/21 05/08/21 History nifedipine 30 mg PO DAILY 05/08/21 05/08/21 History sevelamer carbonate 1,600 mg PO TIDWM 05/08/21 05/09/21 History simvastatin 80 mg PO DAILY 05/08/21 05/08/21 History warfarin 5 mg PO DAILY 05/08/21 05/08/21 History B complex-vitamin C-folic acid 1 tablet PO DAILY 05/09/21 05/09/21 History [Shawna-Colton] calcitriol 0.25 mcg PO DAILY 05/09/21 05/09/21 History cholecalciferol (vitamin D3) 50 mcg PO DAILY 05/09/21 05/09/21 History [Vitamin D3] cinacalcet 30 mg PO USEASDIRECTD 05/09/21 05/09/21 History furosemide 80 mg PO BID 05/09/21 05/09/21 History Laboratory Tests 05/08/21 05/08/21 05/08/21 17:01 17:11 17:11 WBC 8.2 K/mm3 K/mm3 (4.5-10.0) RBC 2.86 M/mm3 L M/mm3 (4.6-6.20) Hgb 9.1 g/dL L D g/dL (14.0-18.0) Hct 27.9 % L % (42.0-52.0) MCV 97.6 fl fl (80-100) MCH 31.8 pg pg (26-34) MCHC 32.6 g/dl g/dl (32-36) RDW 14.8 % H % (11.5-14.5) Plt Count 195 k/mm3 k/mm3 (150-375) MPV 11.8 fl H fl (7.4-10.4) Immature Gran % (Auto) 0.5 % % (0-0.5) Neut % (Auto) 71.8 % % (45.5-73.1) Lymph % (Auto) 10.7 % L % (18.3-44.2) Elk % (Auto) 15.2 % H % (2.6-8.5) Eos % (Auto) 1.6 % % (0-4.4) Baso % (Auto) 0.2 % % (0.2-1.2) Lymph # (Auto) 0.88 K/mm3 L K/mm3 (0.9-3.2) Elk # (Auto) 1.3 K/mm3 H K/mm3 (0.1-0.6) Eos # (Auto) 0.1 K/mm3 K/mm3 (0-0.3) Baso # (Auto) 0.0 K/mm3 K/mm3 (0.0-0.1) Abs Immat Gran (auto) 0.04 K/mm3 H K/mm3 (0.00-0.031) Absolute Neuts (auto) 5.9 K/mm3 K/mm3 (1.3-6.7) Absolute Nucleated RBC 0.0 K/mm3 K/mm3 (0.0-0.012) Nucleated RBC % 0.0 % % (0.0-0.2) PT INR APTT Sodium 135 mmol/L L mmol/L (137-145) Potassium 3.1 mmol/L L mmol/L (3.4-5.0) Chloride 93 mmol/L L mmol/L (98-107) Carbon Dioxide 34 mmol/L H mmol/L (22-30) Anion Gap 8 mmol/L mmol/L (8-16) BUN 39 mg/dL H D mg/dL (9-20) Creatinine 5.40 mg/dL H mg/dL (0.7-1.3) Estim Creat Clear Calc 11 ml/min ml/min Estimated GFR 10 L (59 - ) Glucose 107 mg/dL mg/dL (65-110) Lactic Acid Calcium 9.5 mg/dL mg/dL (8.4-10.2) Magnesium Total Bilirubin 0.5 mg/dL mg/dL (0.2-1.3) AST 31 U/L U/L (17-59) ALT 26 U/L U/L (4-50) Alkaline Phosphatase 95 U/L U/L (38-126) Total Protein 6.0 g/dL L g/dL (6.3-8.2) Albumin 3.1 g/dL L g/dL (3.5-5.1) Lipase 29 U/L U/L (23-300) Urine Color Yellow (Yellow) Urine Appearance Clear (Clear) Urine pH 7.0 (5.0-9.0) Ur Specific [place] 1.013 (1.001-1.035) Urine Protein 2+ mg/dL H mg/dL (Negative) Urine Glucose (UA) Negative mg/dL mg/dL (Negative) Urine Ketones Negative mg/dL mg/dL (Negative) Ur Blood (Man) Negative (Negative) Urine Nitrate Negative (
[2021-05-09] MEDS: SODIUM CHLORIDE 0.9% IV 500 ML 30 ML IV CONT (11:45)
[2021-05-09] MEDS: ceFAZolin SODIUM 1 GM VIAL IV PUSH (12:16)
[2021-05-09] MEDS: HEPARIN SODIUM 1,000 UNITS/ML VIAL 1000 UNITS IV PUSH (12:19)
--- NOTE | 2021-05-09 15:39 | PC.NURSE ---
From OR to Room 308 for HD around 1510. Report from Nancy @ 2379.
[2021-05-09 18:24] LABS: Hepatitis B Surface Antigen Negative (Negative)
[2021-05-09 18:41] LABS: Hepatitis B Surface Anti Res Negative
--- NOTE | 2021-05-09 18:43 | W.PM.PROC2 ---
Procedure Note - Detailed Date of Procedure 05/09/21 Pre-op Diagnosis 1. peritonitis related to infected peritoneal dialysis catheter 2. end-stage renal disease with need for dialysis Post-op Diagnosis same Procedure Performed 1. insertion of tunneled dialysis catheter for hemodialysis 2. Removal of infected peritoneal dialysis catheter Surgeon Jhonatan Walden MD Insurance Consultant Regina ED[place], OR 1st assist Anesthesia other ( G IV S plus local anesthetic) Indications The patient has known peritonitis related to his peritoneal dialysis catheter. Treatment had been tried as an outpatient with antibiotic included in his peritoneal dialysis fluid. This did not seem to continue working and patient had increased pain yesterday. Therefore, brought to the ER and after CT scan showed some free air there was decided to keep the patient and consider removal of the catheter in view of infection with Pseudomonas resistant to antibiotics being used. Dr. Beyer asked that I see the patient and consider removing the peritoneal dialysis catheter for source control and then also placing a clean hemodialysis catheter that could be used to help the patient's dialysis needs. Findings 1. Normal appearing vascular anatomy in the right neck 2. Cloudy yellowish fluid as in exudate around and through the peritoneal dialysis catheter upon removal. Description of Procedure The patient was placed in the supine position on the operating table and after induction of adequate mask general anesthesia by the nurse decorating instructor, we carefully rotated the patient's head and tilted slightly to the left then prepping both sides of the neck and chest with chlorhexidine. After waiting 3 minutes I carefully draped the patient, and we performed a time-out confirming the patient's site of surgery. Because of the patients size, a 28 cm DuraFlow catheter was selected. Using the ultrasound probe we carefully examined the anatomy in the right neck and saved a image of this in the chart. I used ultrasound to identify the right jugular vein in the mid neck and this was cannulated under direct vision with an 18-gauge Arrow needle on a syringe. Good dark blood was aspirated, the J-guidewire was advanced through the needle and into the central venous system using the usual Seldinger technique. C-arm fluoroscopy was used to confirm that the wire was then through the central venous system and then we removed the needle and blue guide off the wire. Following this, we measured the DuraFlow catheter such that the tip would be just into the right atrium or in the distal superior vena cava. A hemostat was placed on the drapes over the chest to guide where we would place this. Then the catheter was measured back to the entry site of the J- wire in a curvilinear fashion and down to the patient's chest overlying the right clavicle. Local anesthetic was placed into 3 león, the exit site and then 2 more on the patient's lateral neck such that a curvilinear path could be dissected through the subcutaneous tissues up to the insertion site on the patients right neck. Local anesthetic was infiltrated along the tract prior to tunneling. Incisions were made with an 11 blade knife at the exit site and the 2 counter incisions and then also an 11 blade at the wire. The tunneling device was connected to the catheter and this was pulled through these incisions to make the subcutaneous tunnel a curvilinear course through the subcutaneous tissues to the insertion site. Then the wire was serially dilated with a 12, 14, and then a 16-Malay dilator over the pull away sheath. We watched the 16-Malay dilator and sheath go down into the central venous system with C-arm fluoroscopy and then removed the dilator & wire after carefully covering the end of the catheter. I lost some blood, as we then inserted the catheter down into the central venous system. The catheter was held in place with a DeBakey forceps and then we carefull
[2021-05-09] MEDS: HYDROcodone/acetaminophen (*CRX) 5-325 MG TABLET 1 TAB PO (20:39)
[2021-05-09] MEDS: SENNA/DOCUSATE SODIUM TABLET 2 TAB PO (20:39)
--- NOTE | 2021-05-09 23:46 | PC.NURSE ---
This Nurse non-admin dialysis medications that were not charted on given by dialysis nurse on 05/09/21.
[2021-05-10] VITALS (12 sets, daily range): BP systolic 95–128; BP diastolic 45–64; PULSE 61–81; RESP 16–20; TEMP 36.1–37; O2SAT 96–100
[2021-05-10] MEDS: HYDROcodone/acetaminophen (*CRX) 5-325 MG TABLET 1 TAB PO ×2 (00:35→14:38)
[2021-05-10 03:08] LABS: Hematocrit 25.7 % (42.0-52.0); Hemoglobin 8.2 g/dL (14.0-18.0); Mean Corpuscular HGB Conc 31.9 g/dl (32-36); Mean Corpuscular Hemoglobin 32.4 pg (26-34); Mean Corpuscular Volume 101.6 fl (80-100); Mean Platelet Volume 11.3 fl (7.4-10.4); Platelet Count Result 173 k/mm3 (150-375); Red Blood Count 2.53 M/mm3 (4.6-6.20); Red Cell Distribution Width 14.9 % (11.5-14.5); White Blood Count 6.3 K/mm3 (4.5-10.0)
[2021-05-10 03:13] LABS: INR 1.3; Prothrombin Time 16.1 Seconds (11.1-14.7)
[2021-05-10 03:35] LABS: Gentamicin Peak 5.1 ug/mL (5.0-12.0)
[2021-05-10 03:44] LABS: Anion Gap 6 mmol/L (8-16); Blood Urea Nitrogen 25 mg/dL (9-20); Calcium 8.8 mg/dL (8.4-10.2); Carbon Dioxide 30 mmol/L (22-30); Chloride 98 mmol/L (98-107); Estimated CRCL calculation 16 ml/min; Estimated Glomerular Filt Rate 15; Glucose 108 mg/dL (65-110); Phosphorus 3.6 mg/dL (2.5-4.5); Potassium 3.2 mmol/L (3.4-5.0); Sodium 134 mmol/L (137-145)
[2021-05-10] MEDS: SEVELAMER CARBONATE 800 MG TABLET 1600 MG PO ×3 (08:51→17:24)
[2021-05-10] MEDS: hydrALAZINE HCL 50 MG TABLET 100 MG PO ×2 (08:51→17:25)
[2021-05-10] MEDS: NIFEdipine 30 MG TAB.ER.24 PO (08:52)
--- NOTE | 2021-05-10 09:40 | PC.NURSE ---
patient to dialysis per chair
[2021-05-10] MEDS: EPOETIN ALFA-EPBX 10,000 UNITS/ML VIAL 10000 UNITS IV PUSH (10:55)
--- NOTE | 2021-05-10 11:23 | PM.PNNEP ---
Progress Note: A&P Assessment and Plan (1) ESRD on peritoneal dialysis: Onset Date: ~05/2021 Code(s): N18.6 - End stage renal disease; Z99.2 - Dependence on renal dialysis Status: Acute Assessment and Plan: The patient has end-stage renal disease. Dialysis underway. tolerating fluid removal nicely. continue taking fluid off. will do another treatment on thursday. (2) Peritonitis associated with peritoneal dialysis: Code(s): T85.71XA - Infection and inflammatory reaction due to peritoneal dialysis catheter, initial encounter Status: Acute Assessment and Plan: The patient is on antibiotics now. PD catheter is has been removed. afebrile and wbc is okay. belly pain is better. (3) Fluid overload, unspecified: Onset Date: ~05/2021 Code(s): E87.70 - Fluid overload, unspecified Status: Acute Assessment and Plan: The patient has volume overloaded. fluid removal with dialysis. 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 (5) Hypertension: Code(s): I10 - Essential (primary) hypertension Status: Acute Assessment and Plan: Blood pressure is doing well. 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 Will give Epogen. No need for iron because he has an infection (7) Renal osteodystrophy: Code(s): N25.0 - Renal osteodystrophy Status: Acute Assessment and Plan: Will check a phosphorus level in the morning. Subjective Date/time seen: 05/10/21 17:23 Interval history: patient is on HD. arminda it well. seen at 11:10am he feels well. belly pain is much better breathing is better. edema is better.. Review of Systems Cardiovascular: Cardiovascular: Reports no additional cardiovascular complaints Respiratory: Respiratory: Reports no additional respiratory complaints Gastrointestinal: Gastrointestinal: Reports no additional gastrointestinal complaints Genitourinary: Genitourinary: Reports no additional male genitourinary complaints Exam Narrative: WDWN in NAD skin no rash head ncat lungs clear cor reg no rub abd BS+ mildly tender and soft ext 1+ edema. Objective Data Vital Signs Vital Signs: Vital Signs - 24 hr 05/09/21 17:30 05/09/21 17:45 05/09/21 18:00 Temperature Pulse Rate 69 66 57 L Respiratory Rate Blood Pressure 103/51 L 114/65 111/53 L Pulse Oximetry 05/09/21 18:15 05/09/21 18:30 05/09/21 18:55 Temperature Pulse Rate 59 L 60 54 L Respiratory Rate Blood Pressure 97/55 L 96/52 L 109/53 L Pulse Oximetry 05/09/21 19:05 05/09/21 20:42 05/09/21 23:51 Temperature 36.5 C 36.0 C L 36.3 C L Pulse Rate 59 L 59 L 70 Respiratory Rate 16 20 20 Blood Pressure 130/66 98/51 L 119/48 L Pulse Oximetry 100 94 93 05/10/21 03:38 05/10/21 09:57 05/10/21 10:04 Temperature 36.1 C L 36.7 C Pulse Rate 69 71 61 Respiratory Rate 18 18 Blood Pressure 128/62 117/56 L 120/49 L Pulse Oximetry 96 05/10/21 10:15 05/10/21 10:30 05/10/21 14:00 Temperature 36.4 C Pulse Rate 62 67 81 Respiratory Rate 20 Blood Pressure 111/56 L 112/45 L 113/59 L Pulse Oximetry 97 Intake/Output Intake/Output: Intake & Output 05/07/21 05/08/21 05/09/21 05/10/21 23:59 23:59 23:59 23:59 Intake Total 50 590 650 Output Total 3400 0 Balance 50 -2810 650 Meds/Results Medications: Active Medications Generic Name Dose Route Start Last Admin Trade Name Freq PRN Reason Stop Dose Admin Hydrocodone Bitart/Acetaminophen 1 tab 05/09/21 14:57 05/10/21 14:38 Hydrocodone/Acetaminophen (*Crx) 5-325 Mg Tablet PO 1 tab Q4H PRN Administration Pain Rated 4-6 Hydrocodone Bitart/Acetaminophen 1 tab 05/09/21 1
--- NOTE | 2021-05-10 11:55 | PM.PNGS ---
Progress Note: A&P Assessment and Plan (1) Peritonitis associated with peritoneal dialysis: Code(s): T85.71XA - Infection and inflammatory reaction due to peritoneal dialysis catheter, initial encounter Status: Acute Assessment and Plan: s/p removal of PD cath, wound looks good, exam benign, good HD thru TDC Subjective Subjective Date/Time Seen: 05/10/21 11:56 feels much better, getting HD today, reports some incisional soreness Review of Systems Review of Systems: All systems reviewed & are unremarkable except as noted in HPI and below Exam Const: General: cooperative, comfortable, no acute distress and ill appearing Chest: Chest palpation & inspection: normal inspection of the chest Other: RIJ TDC - C/D/I, good fxn Resp: Effort & Inspection: normal respiratory effort Auscultation: clear to auscultation bilaterally Cardio: Rate: regular rate Rhythm: regular rhythm GI: Inspection: normal to inspection, distended and incision GI Palp: Yes Soft to palpation and Yes Tenderness to palpation present (GI) Other: incision C/D/I, no s/s infection Objective Data Vital Signs Vital Signs: Vital Signs - 24 hr 05/09/21 13:52 05/09/21 14:05 05/09/21 14:20 Temperature 36.1 C L Pulse Rate 56 L 57 L 48 L Respiratory Rate 11 L 14 12 Blood Pressure 116/52 L 116/62 129/69 Pulse Oximetry 100 98 100 05/09/21 14:40 05/09/21 14:53 05/09/21 15:20 Temperature 36.3 C L Pulse Rate 50 L 56 L 58 L Respiratory Rate 14 12 16 Blood Pressure 134/71 148/66 H 124/60 Pulse Oximetry 100 100 100 05/09/21 15:22 05/09/21 15:30 05/09/21 15:45 Temperature Pulse Rate 55 L 55 L 59 L Respiratory Rate Blood Pressure 144/71 H 134/83 122/65 Pulse Oximetry 05/09/21 16:00 05/09/21 16:15 05/09/21 16:30 Temperature Pulse Rate 58 L 57 L 59 L Respiratory Rate Blood Pressure 121/64 114/62 98/58 L Pulse Oximetry 05/09/21 16:45 05/09/21 17:00 05/09/21 17:15 Temperature Pulse Rate 60 60 60 Respiratory Rate Blood Pressure 101/57 L 97/49 L 118/57 L Pulse Oximetry 05/09/21 17:30 05/09/21 17:45 05/09/21 18:00 Temperature Pulse Rate 69 66 57 L Respiratory Rate Blood Pressure 103/51 L 114/65 111/53 L Pulse Oximetry 05/09/21 18:15 05/09/21 18:30 05/09/21 18:55 Temperature Pulse Rate 59 L 60 54 L Respiratory Rate Blood Pressure 97/55 L 96/52 L 109/53 L Pulse Oximetry 05/09/21 19:05 05/09/21 20:42 05/09/21 23:51 Temperature 36.5 C 36.0 C L 36.3 C L Pulse Rate 59 L 59 L 70 Respiratory Rate 16 20 20 Blood Pressure 130/66 98/51 L 119/48 L Pulse Oximetry 100 94 93 05/10/21 03:38 Temperature 36.1 C L Pulse Rate 69 Respiratory Rate 18 Blood Pressure 128/62 Pulse Oximetry 96 Intake/Output Intake/Output: Intake & Output 05/07/21 05/08/21 05/09/21 05/10/21 23:59 23:59 23:59 23:59 Intake Total 50 590 360 Output Total 3400 0 Balance 50 -2810 360 Meds/Results Medications: Active Medications Generic Name Dose Route Start Last Admin Trade Name Freq PRN Reason Stop Dose Admin Hydrocodone Bitart/Acetaminophen 1 tab 05/09/21 14:57 05/10/21 00:35 Hydrocodone/Acetaminophen (*Crx) 5-325 Mg Tablet PO 1 tab Q4H PRN Administration Pain Rated 4-6 Hydrocodone Bitart/Acetaminophen 1 tab 05/09/21 14:57 Hydrocodone/Acetaminophen (*Crx) 7.5-325 Mg Tablet PO Q6H PRN Pain Rated 7-10 Epoetin Antwon-epbx 10,000 units 05/09/21 08:00 05/10/21 10:55 Epoetin Antwon-Epbx 10,000 Units/Ml Vial IV PUSH 10,000 units MoWeFr@0900 LES Administration Fentanyl Citrate 25 mcg 05/09/21 11:11 Fentanyl Citrate Inj (*Crx) 100 Mcg/2 Ml Vial IV PUSH Q2M PRN Pain Hydralazine HCl 100 mg 05/09/21 08:00 05/10/21 08:51 Hydralazine Hcl 50 Mg Tablet PO 100 mg BIDWM LES Administration Ceftazidime 0.5 gm/ Dextrose 50 mls @ 100 mls/hr 05/09/21 23:00 05/09/21 23:33 IVPB Infused Q24H LES Infusion Gentam
--- NOTE | 2021-05-10 14:08 | PC.NURSE ---
patient complete with dialysis and returned to room
[2021-05-10] MEDS: CHOLECALCIFEROL 1,000 UNITS TABLET 5000 UNITS PO (17:24)
[2021-05-10] MEDS: SIMVASTATIN 20 MG TABLET 80 MG PO (17:25)
[2021-05-10 18:09] LABS: Gentamicin Trough 1.9 ug/mL (<1.0)
--- NOTE | 2021-05-10 18:46 | PM.IMPN ---
Progress Note: A&P Assessment and Plan (1) Peritonitis: Code(s): K65.9 - Peritonitis, unspecified Status: Acute (2) Hypertension: Code(s): I10 - Essential (primary) hypertension Status: Acute (3) Hyperlipidemia: Code(s): E78.5 - Hyperlipidemia, unspecified Status: Acute (4) Coronary artery disease: Code(s): I25.10 - Atherosclerotic heart disease of [place] coronary artery without angina pectoris Status: Acute (5) ESRD on peritoneal dialysis: Onset Date: ~05/2021 Code(s): N18.6 - End stage renal disease; Z99.2 - Dependence on renal dialysis Status: Acute (6) COPD (chronic obstructive pulmonary disease): Code(s): J44.9 - Chronic obstructive pulmonary disease, unspecified Status: Acute (7) Gout: Code(s): M10.9 - Gout, unspecified Status: Acute (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 Repeat cultures were obtained at [facility] that today as well which will need to be tracked. Nephrology on board started on ceftazidime and gentamicin. Pharmacy to dose gentamicin. Renally dose of ceftazidime. Peritoneal dialysis catheter likely needs to be removed. General surgery has been consulted from the ER. Will need to switch peritoneal dialysis to hemodialysis in the interim. This is a 2nd episode of peritonitis and patient wants to stick to peritoneal dialysis as renal replacement therapy. Nephrology has also been consulted from the ER. General surgery will place temporary hemodialysis catheter in the morning. # intraperitoneal free air likely iatrogenic due to his presence of dialysis catheter # end-stage renal disease on peritoneal dialysis Has status previous history of infected peritoneal dialysis catheter 06/2020 # coronary artery disease status post CABG in 2000 # atrial fibrillation on chronic anticoagulation with warfarin INR low as recently stopped his warfarin due to dark stool. We will resume his warfarin and monitor INR daily. # dark stools guaiac test in the ER was negative will continue to monitor # PHONG on CPAP # hypertension # hyperlipidemia # prediabetes # gout # COPD/asthma # DVT prophylaxis on warfarin loss up therapeutic INR will resume # full code status 05/09/21 seen by Nephro POC remove PD catheter insert TDC start HD while hospitalized, IV abx for Pseudomonas peritonitis cont current care potassium repletion per nephrology BP at goal ceftazidime and gentamicin -> anticipate adjustment when cath tip cx results 05/10/2021 Unable to find culture results suppose they are from the outpatient setting Will speak with Dr. Beyer tomorrow to review results Possible consult to Dr. srinivasan depending on results Continue ceftazidime and gentamicin for now Patient does seem to be improving Volume overloaded receiving hemodialysis with removal as as much blue fluid as patient can tolerate today he had 4 L removed Blood pressure is at goal Continue supportive care Anticipate need for outpatient dialysis chair to be arranged temporarily while peritonitis being treated to cure Subjective Date/time seen: 05/10/21 18:46 Seen during dialysis again today. He is tolerating HD well no concerns during my visit does have ongoing abdominal pain. Radiation Protection Specialist is present during our interview and plan of care reviewed with him. Exam Narrative: GENERAL: Well-appearing, well-nourished, and in no acute distress. HEAD: Normocephalic, atraumatic. EYES: EOMI. CHEST:
[2021-05-10] MEDS: SENNA/DOCUSATE SODIUM TABLET 2 TAB PO (21:19)
[2021-05-10] MEDS: HYDROcodone/acetaminophen (*CRX) 7.5-325 MG TABLET 1 TAB PO (22:22)
[2021-05-11] VITALS (17 sets, daily range): BP systolic 90–135; BP diastolic 53–67; PULSE 52–90; RESP 18; TEMP 36–36.8; O2SAT 96
[2021-05-11 06:54] LABS: Basophils Percent Auto 0.5 % (0.2-1.2); Eosinophils Absolute Auto 0.3 K/mm3 (0-0.3); Hematocrit 25.3 % (42.0-52.0); Hemoglobin 8.3 g/dL (14.0-18.0); Immature Granulocyte Absolute 0.02 K/mm3 (0.00-0.031); Immature Granulocyte Percent A 0.3 % (0-0.5); Lymphocytes Percent Auto 12.2 % (18.3-44.2); Mean Corpuscular HGB Conc 32.8 g/dl (32-36); Mean Corpuscular Hemoglobin 31.7 pg (26-34); Mean Corpuscular Volume 96.6 fl (80-100); Mean Platelet Volume 11.4 fl (7.4-10.4); Monocytes Absolute Auto 1.3 K/mm3 (0.1-0.6); Monocytes Percent Auto 19.6 % (2.6-8.5); Neutrophils Absolute Auto 4.2 K/mm3 (1.3-6.7); Neutrophils Percent Auto 63.4 % (45.5-73.1); Platelet Count Result 172 k/mm3 (150-375); Red Blood Count 2.62 M/mm3 (4.6-6.20); Red Cell Distribution Width 14.6 % (11.5-14.5); White Blood Count 6.6 K/mm3 (4.5-10.0)
[2021-05-11 07:05] LABS: Anion Gap 4 mmol/L (8-16); Blood Urea Nitrogen 24 mg/dL (9-20); Calcium 9.2 mg/dL (8.4-10.2); Carbon Dioxide 35 mmol/L (22-30); Chloride 95 mmol/L (98-107); Estimated CRCL calculation 13 ml/min; Estimated Glomerular Filt Rate 13; Glucose 103 mg/dL (65-110); Sodium 134 mmol/L (137-145)
[2021-05-11 07:08] LABS: Gentamicin Peak 5.5 ug/mL (5.0-12.0)
[2021-05-11 07:27] LABS: INR 1.4; Prothrombin Time 17.1 Seconds (11.1-14.7)
--- NOTE | 2021-05-11 08:53 | PM.PNGS ---
Progress Note: A&P Assessment and Plan (1) Peritonitis associated with peritoneal dialysis: Code(s): T85.71XA - Infection and inflammatory reaction due to peritoneal dialysis catheter, initial encounter Status: Acute Assessment and Plan: doing well, exam benign, cont to use RIJ TDC for HD, ok to dc from surgical standpoint, f/u Dr. Walden in 1 wk for suture removal Subjective Subjective Date/Time Seen: 05/11/21 08:53 feels good, no acute issues Review of Systems Review of Systems: All systems reviewed & are unremarkable except as noted in HPI and below Exam Const: General: cooperative, comfortable and no acute distress Orientation/consciousness: patient oriented x3 Chest: Chest palpation & inspection: normal inspection of the chest Other: RIJ TDC - C/D/I Resp: Effort & Inspection: normal respiratory effort Auscultation: clear to auscultation bilaterally Cardio: Rate: regular rate Rhythm: regular rhythm GI: Inspection: normal to inspection, non-distended and incision GI Palp: Yes Soft to palpation and No Tenderness to palpation present (GI) Other: incision - C/D/I Objective Data Vital Signs Vital Signs: Vital Signs - 24 hr 05/10/21 09:57 05/10/21 10:04 05/10/21 10:15 Temperature 36.7 C Pulse Rate 71 61 62 Respiratory Rate 18 Blood Pressure 117/56 L 120/49 L 111/56 L Pulse Oximetry 05/10/21 10:30 05/10/21 11:00 05/10/21 12:00 Temperature Pulse Rate 67 61 61 Respiratory Rate Blood Pressure 112/45 L 100/51 L 103/61 Pulse Oximetry 05/10/21 13:00 05/10/21 13:34 05/10/21 13:35 Temperature 36.7 C Pulse Rate 71 66 66 Respiratory Rate 18 Blood Pressure 95/52 L 118/64 102/55 L Pulse Oximetry 05/10/21 14:00 05/10/21 21:12 05/11/21 05:50 Temperature 36.4 C 36.2 C L 36.4 C Pulse Rate 81 64 62 Respiratory Rate 20 16 18 Blood Pressure 113/59 L 111/53 L 112/60 Pulse Oximetry 97 100 96 Intake/Output Intake/Output: Intake & Output 05/08/21 05/09/21 05/10/21 05/11/21 23:59 23:59 23:59 23:59 Intake Total 50 590 890 100 Output Total 3400 4000 150 Balance 50 -2810 -3110 -50 Meds/Results Medications: Active Medications Generic Name Dose Route Start Last Admin Trade Name Freq PRN Reason Stop Dose Admin Hydrocodone Bitart/Acetaminophen 1 tab 05/09/21 14:57 05/10/21 14:38 Hydrocodone/Acetaminophen (*Crx) 5-325 Mg Tablet PO 1 tab Q4H PRN Administration Pain Rated 4-6 Hydrocodone Bitart/Acetaminophen 1 tab 05/09/21 14:57 05/10/21 22:22 Hydrocodone/Acetaminophen (*Crx) 7.5-325 Mg Tablet PO 1 tab Q6H PRN Administration Pain Rated 7-10 Epoetin Antwon-epbx 10,000 units 05/09/21 08:00 05/10/21 10:55 Epoetin Antwon-Epbx 10,000 Units/Ml Vial IV PUSH 10,000 units MoWeFr@0900 LES Administration Fentanyl Citrate 25 mcg 05/09/21 11:11 Fentanyl Citrate Inj (*Crx) 100 Mcg/2 Ml Vial IV PUSH Q2M PRN Pain Hydralazine HCl 100 mg 05/09/21 08:00 05/10/21 17:25 Hydralazine Hcl 50 Mg Tablet PO 100 mg BIDWM LES Administration Ceftazidime 0.5 gm/ Dextrose 50 mls @ 100 mls/hr 05/09/21 23:00 05/10/21 22:26 IVPB 50 mls/hr Q24H LES Administration Gentamicin Sulfate 90 mg/ 102.25 mls @ 100 mls/hr 05/10/21 13:00 Dextrose IVPB PRN PRN HEMODIALYSIS PATIENT Morphine Sulfate 4 mg 05/08/21 21:10 05/09/21 08:22 Morphine Sulfate (*Crx) 4 Mg/Ml Inj IV PUSH 4 mg Q2H PRN Administration Pain Rated 7-10 Naloxone HCl 0.1 mg 05/09/21 14:57 Naloxone Hcl 0.4 Mg/Ml Vial IV PUSH Q2M PRN Opiate Reversal Nifedipine 30 mg 05/09/21 09:00 05/10/21 08:52 Nifedipine 30 Mg Tab.Er.24 PO 30 mg DAILY LES Administration Ondansetron HCl 4 mg 11/03/21 21:10 Ondansetron Inj 4 Mg/2 Ml Vial IV PUSH Q4H PRN Nausea Senna/Docusate Sodium 2 tab 05/09/21 21:00 05/10/21 21:19 Senna/Docusate Sodium Tablet PO 2 tab HS LES Administration Sevelamer C
[2021-05-11] MEDS: NIFEdipine 30 MG TAB.ER.24 PO (09:16)
[2021-05-11] MEDS: SEVELAMER CARBONATE 800 MG TABLET 1600 MG PO ×3 (09:16→19:22)
[2021-05-11] MEDS: hydrALAZINE HCL 50 MG TABLET 100 MG PO ×2 (09:16→19:22)
--- NOTE | 2021-05-11 12:09 | PM.IMPN ---
Progress Note: A&P Assessment and Plan (1) Peritonitis: Code(s): K65.9 - Peritonitis, unspecified Status: Acute (2) Hypertension: Code(s): I10 - Essential (primary) hypertension Status: Acute (3) Hyperlipidemia: Code(s): E78.5 - Hyperlipidemia, unspecified Status: Acute (4) Coronary artery disease: Code(s): I25.10 - Atherosclerotic heart disease of [place] coronary artery without angina pectoris Status: Acute (5) ESRD on peritoneal dialysis: Onset Date: ~05/2021 Code(s): N18.6 - End stage renal disease; Z99.2 - Dependence on renal dialysis Status: Acute (6) COPD (chronic obstructive pulmonary disease): Code(s): J44.9 - Chronic obstructive pulmonary disease, unspecified Status: Acute (7) Gout: Code(s): M10.9 - Gout, unspecified Status: Acute (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 Repeat cultures were obtained at [facility] that today as well which will need to be tracked. Nephrology on board started on ceftazidime and gentamicin. Pharmacy to dose gentamicin. Renally dose of ceftazidime. Peritoneal dialysis catheter likely needs to be removed. General surgery has been consulted from the ER. Will need to switch peritoneal dialysis to hemodialysis in the interim. This is a 2nd episode of peritonitis and patient wants to stick to peritoneal dialysis as renal replacement therapy. Nephrology has also been consulted from the ER. General surgery will place temporary hemodialysis catheter in the morning. # intraperitoneal free air likely iatrogenic due to his presence of dialysis catheter # end-stage renal disease on peritoneal dialysis Has status previous history of infected peritoneal dialysis catheter 06/2020 # coronary artery disease status post CABG in 2000 # atrial fibrillation on chronic anticoagulation with warfarin INR low as recently stopped his warfarin due to dark stool. We will resume his warfarin and monitor INR daily. # dark stools guaiac test in the ER was negative will continue to monitor # PHONG on CPAP # hypertension # hyperlipidemia # prediabetes # gout # COPD/asthma # DVT prophylaxis on warfarin loss up therapeutic INR will resume # full code status 05/09/21 seen by Nephro POC remove PD catheter insert TDC start HD while hospitalized, IV abx for Pseudomonas peritonitis cont current care potassium repletion per nephrology BP at goal ceftazidime and gentamicin -> anticipate adjustment when cath tip cx results 05/10/2021 Unable to find culture results suppose they are from the outpatient setting Will speak with Dr. Beyer tomorrow to review results Possible consult to Dr. srinivasan depending on results Continue ceftazidime and gentamicin for now Patient does seem to be improving Volume overloaded receiving hemodialysis with removal as as much blue fluid as patient can tolerate today he had 4 L removed Blood pressure is at goal Continue supportive care Anticipate need for outpatient dialysis chair to be arranged temporarily while peritonitis being treated to cure 05/11/21 Peritoneal fluid culture 04/22/21 (pansensitive) pseudomonas aeruginosa -amikacin <=2 S -Cefepime <=1 S -Ceftrazidime 2 S -Ciprofloxacin <=0.25 S -Gentamicin < =1 S -Imipenem 1 S -Levofloxacin 0.5 S -Tobramycin <=1 S -Zosyn <=4 S pt doing well afebrile, no leukocytosis, feeling better then prior to admission c/s placed to ID and case reviewed w him will
--- NOTE | 2021-05-11 13:56 | PM.PNNEP ---
Progress Note: A&P Assessment and Plan (1) ESRD on peritoneal dialysis: Onset Date: ~05/2021 Code(s): N18.6 - End stage renal disease; Z99.2 - Dependence on renal dialysis Status: Acute Assessment and Plan: The patient has end-stage renal disease. Dialysis to be done later. (DUF only) tolerating fluid removal nicely. continue taking fluid off. (2) Peritonitis associated with peritoneal dialysis: Code(s): T85.71XA - Infection and inflammatory reaction due to peritoneal dialysis catheter, initial encounter Status: Acute Assessment and Plan: The patient is on antibiotics now. PD catheter is has been removed. afebrile and wbc is okay. belly pain is better. ID to see to determine length of therapy and what we can use. I would prefer not intermediate frame tender gent due to preservation of residual renal function. other options include quinolones ceftaz, and cefipime. I sent sensitivities to Dr Carter to show ID (3) Fluid overload, unspecified: Onset Date: ~05/2021 Code(s): E87.70 - Fluid overload, unspecified Status: Acute Assessment and Plan: The patient has volume overloaded. fluid removal with dialysis. 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 (5) Hypertension: Code(s): I10 - Essential (primary) hypertension Status: Acute Assessment and Plan: Blood pressure is doing well. 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 on Epogen. No need for iron because he has an infection (7) Renal osteodystrophy: Code(s): N25.0 - Renal osteodystrophy Status: Acute Assessment and Plan: Will check a phosphorus level in the morning. Subjective Date/time seen: 05/11/21 13:56 Interval history: patient is on HD. he feels well. belly pain is much better belly pain almost gone except where the catheter was removed. Exam Narrative: WDWN in NAD skin no rash head ncat lungs clear cor reg no rub abd BS+ minimally tender at exit site and soft ext 1+ edema. Objective Data Vital Signs Vital Signs: Vital Signs - 24 hr 05/10/21 14:00 05/10/21 21:12 05/11/21 05:50 Temperature 36.4 C 36.2 C L 36.4 C Pulse Rate 81 64 62 Respiratory Rate 20 16 18 Blood Pressure 113/59 L 111/53 L 112/60 Pulse Oximetry 97 100 96 05/11/21 09:31 Temperature Pulse Rate Respiratory Rate Blood Pressure Pulse Oximetry 96 Intake/Output Intake/Output: Intake & Output 05/08/21 05/09/21 05/10/21 05/11/21 23:59 23:59 23:59 23:59 Intake Total 50 590 890 460 Output Total 3400 4000 150 Balance 24 -4647 -9486 310 Meds/Results Medications: Active Medications Generic Name Dose Route Start Last Admin Trade Name Freq PRN Reason Stop Dose Admin Hydrocodone Bitart/Acetaminophen 1 tab 05/09/21 14:57 05/10/21 14:38 Hydrocodone/Acetaminophen (*Crx) 5-325 Mg Tablet PO 1 tab Q4H PRN Administration Pain Rated 4-6 Hydrocodone Bitart/Acetaminophen 1 tab 05/09/21 14:57 05/10/21 22:22 Hydrocodone/Acetaminophen (*Crx) 7.5-325 Mg Tablet PO 1 tab Q6H PRN Administration Pain Rated 7-10 Epoetin Antwon-epbx 10,000 units 05/09/21 08:00 05/10/21 10:55 Epoetin Antwon-Epbx 10,000 Units/Ml Vial IV PUSH 10,000 units MoWeFr@0900 LES Administration Fentanyl Citrate 25 mcg 05/09/21 11:11 Fentanyl Citrate Inj (*Crx) 100 Mcg/2 Ml Vial IV PUSH Q2M PRN Pain Hydralazine HCl 100 mg 05/09/21 08:00 05/11/21 09:16 Hydralazine Hcl 50 Mg Tablet PO 100 mg BIDWM LES Administration Ceftazidime 0.5 gm/ Dextrose 50 mls @ 100 mls/hr 05/09/21 23:00 05/10/21 22:26 IVPB 50 mls/hr Q24H LES Administration Gentamicin
--- NOTE | 2021-05-11 15:41 | PC.NURSE ---
to dialysis per chair
[2021-05-11] MEDS: CHOLECALCIFEROL 1,000 UNITS TABLET 5000 UNITS PO (19:21)
[2021-05-11] MEDS: SIMVASTATIN 20 MG TABLET 80 MG PO (19:22)
[2021-05-11] MEDS: HYDROcodone/acetaminophen (*CRX) 7.5-325 MG TABLET 1 TAB PO (22:51)
--- NOTE | 2021-05-12 01:55 | PC.NURSE ---
Daylight Savings Time For Daylight Savings Time Ending in the Fall - Clocks are moved back. For Daylight Savings Time Beginning in the Spring - Clocks are moved ahead. For [facility], the time of change occurs at 0200 hrs. Time is taken from the windows server engineer. This entry on the patient's chart recognizes the change in time reflected during documentation. Example: 2 entries for vital signs may be charted for 0200 hrs.
[2021-05-12 07:29] LABS: INR 1.4; Prothrombin Time 16.7 Seconds (11.1-14.7)
[2021-05-12 07:49] LABS: Glucose Point of Care 107 mg/dl (65-105)
[2021-05-12 08:00] VITALS: PULSE 56; RESP 18; O2SAT 96
[2021-05-12] MEDS: SEVELAMER CARBONATE 800 MG TABLET 1600 MG PO ×3 (08:23→17:18)
[2021-05-12] MEDS: NIFEdipine 30 MG TAB.ER.24 PO (08:23)
[2021-05-12] MEDS: hydrALAZINE HCL 50 MG TABLET 100 MG PO (08:23)
--- NOTE | 2021-05-12 12:31 | PM.PNNEP ---
Progress Note: A&P Assessment and Plan (1) ESRD on peritoneal dialysis: Onset Date: ~05/2021 Code(s): N18.6 - End stage renal disease; Z99.2 - Dependence on renal dialysis Status: Acute Assessment and Plan: The patient has end-stage renal disease. Will get another treatment on Thursday. tolerating fluid removal nicely. continue taking fluid off. (2) Peritonitis associated with peritoneal dialysis: Code(s): T85.71XA - Infection and inflammatory reaction due to peritoneal dialysis catheter, initial encounter Status: Acute Assessment and Plan: The patient is on antibiotics now. PD catheter is has been removed. afebrile and wbc is okay. belly pain is better. ID to see to determine length of therapy and what we can use. I would prefer not roasterman gent due to preservation of residual renal function. other options include quinolones ceftaz, and cefipime. I sent sensitivities to Dr Carter to show ID (3) Fluid overload, unspecified: Onset Date: ~05/2021 Code(s): E87.70 - Fluid overload, unspecified Status: Acute Assessment and Plan: The patient has volume overloaded. fluid removal with dialysis. 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 (5) Hypertension: Code(s): I10 - Essential (primary) hypertension Status: Acute Assessment and Plan: Blood pressure is doing well. 100 to 130 for the most part. 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 on Epogen. No need for iron because he has an infection (7) Renal osteodystrophy: Code(s): N25.0 - Renal osteodystrophy Status: Acute Assessment and Plan: Phosphorus 3.6 last check. Will check it again tomorrow Subjective Date/time seen: 05/12/21 12:31 Interval history: patient is sitting in a chair comfortably. he feels well. belly pain is much better belly pain almost gone except where the catheter was removed. Exam Narrative: WDWN in NAD skin no rash head ncat lungs clear cor reg no rub abd BS+ minimally tender at exit site and soft ext 1+ edema. Objective Data Vital Signs Vital Signs: Vital Signs - 24 hr 05/11/21 15:35 05/11/21 15:42 05/11/21 16:00 Temperature 36.8 C Pulse Rate 59 L 57 L 57 L Respiratory Rate 18 Blood Pressure 127/62 128/61 127/63 Pulse Oximetry 05/11/21 16:15 05/11/21 16:30 05/11/21 16:45 Temperature Pulse Rate 56 L 54 L 53 L Respiratory Rate Blood Pressure 115/66 118/64 124/66 Pulse Oximetry 05/11/21 17:00 05/11/21 17:15 05/11/21 17:30 Temperature Pulse Rate 53 L 55 L 53 L Respiratory Rate Blood Pressure 135/66 125/64 118/67 Pulse Oximetry 05/11/21 17:45 05/11/21 18:00 05/11/21 18:15 Temperature Pulse Rate 57 L 90 52 L Respiratory Rate Blood Pressure 123/65 107/53 L 112/54 L Pulse Oximetry 05/11/21 18:30 05/11/21 18:42 05/11/21 18:55 Temperature 36.6 C Pulse Rate 55 L 60 56 L Respiratory Rate 18 Blood Pressure 90/54 L 114/57 L 120/67 Pulse Oximetry 05/12/21 08:00 Temperature Pulse Rate 56 L Respiratory Rate 18 Blood Pressure Pulse Oximetry 96 Intake/Output Intake/Output: Intake & Output 05/09/21 05/10/21 05/11/21 05/12/21 23:59 23:59 23:59 22:59 Intake Total 590 940 850 990 Output Total 3400 4000 3150 Balance -2810 -3060 -2300 990 Meds/Results Medications: Active Medications Generic Name Dose Route Start Last Admin Trade Name Freq PRN Reason Stop Dose Admin Hydrocodone Bitart/Acetaminophen 1 tab 05/09/21 14:57 05/10/21 14:38 Hydrocodone/Acetaminophen (*Crx) 5-325 Mg Tablet PO 1 tab Q4H PRN Administration Pain Rated 4-6 Hydrocodone
[2021-05-12 14:00] VITALS: BP 106/55; PULSE 57; RESP 18; TEMP 36.5; O2SAT 97
--- NOTE | 2021-05-12 15:08 | PM.IMPN ---
Progress Note: A&P Assessment and Plan (1) Peritonitis: Code(s): K65.9 - Peritonitis, unspecified Status: Acute (2) Hypertension: Code(s): I10 - Essential (primary) hypertension Status: Acute (3) Hyperlipidemia: Code(s): E78.5 - Hyperlipidemia, unspecified Status: Acute (4) Coronary artery disease: Code(s): I25.10 - Atherosclerotic heart disease of [place] coronary artery without angina pectoris Status: Acute (5) ESRD on peritoneal dialysis: Onset Date: ~05/2021 Code(s): N18.6 - End stage renal disease; Z99.2 - Dependence on renal dialysis Status: Acute (6) COPD (chronic obstructive pulmonary disease): Code(s): J44.9 - Chronic obstructive pulmonary disease, unspecified Status: Acute (7) Gout: Code(s): M10.9 - Gout, unspecified Status: Acute (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 Status: Acute (9) Atrial fibrillation: Code(s): I48.91 - Unspecified atrial fibrillation Status: Acute (10) Dark stools: Code(s): R19.5 - Other fecal abnormalities Status: Acute (11) Prediabetes: Code(s): R73.03 - Prediabetes Status: Acute Additional Plan 05/12/21 Continue IV antibiotic therapy Lactulose miconazole topical cream Pending ID consult for duration of tx and therapy recommendations for peritoneal infection Continue HD Anticipate discharge home with hemodialysis outpatient until peritoneal dialysis can be reinserted after infection is cleared HD chair arranged for Thursday Brief Summary of Stay 81-year-old male undergoing outpatient peritoneal dialysis with abdominal pain, diagnosed to have Pseudomonas peritonitis that failed to improve with administration of gentamicin and ceftazidime. He was sent to hospital to be admitted for removal of peritoneal dialysis catheter and insertion of temporary hemodialysis catheter. Pt was continued on ceftazidime and gentamicin (confirmed by culture sensitivities of peritoneal fluid drawn in the outpt setting on 04/22/21). He responded well to medical therapy and has had a benign clinical course since admission. HD has been well tolerated with 3-4L removed during each session improving his volume status. His other medical conditions have been treated w his home medications and remained at goal. His home warfarin has been restarted and his INR at present is 1.4 and subtherapeutic. He is anticipated to be discharged home tomorrow in stable condition after formal ID recommendations are made for antibiotic and duration of treatment. He is given indications to follow-up with his primary care physician, Nephrology, and to start outpatient hemodialysis on Thursday for which he has already been provided center information. Subjective Date/time seen: 05/12/21 15:08 pt complains of constipation unrelieved by laxative pills and jock itch Exam Narrative: GENERAL: Well-appearing, well-nourished, and in no acute distress. HEAD: Normocephalic, atraumatic. EYES: EOMI. CHEST: Clear to auscultation. No respiratory distress.HD cath over R chest HEART: tachycardia w murmur Normal peripheral pulses. ABDOMEN: Soft, distended nontender EXTREMITIES: Normal range of motion. 2+ edema bilateral lower extremity SKIN: Warm, dry, no rash. NEURO: Alert and oriented x3. no focal neurological deficits PSYCH: Normal mood and affect. Objective Data Vital Signs Vital Signs: Vital Signs - 24 hr 05/11/21 16:15 05/11/21 16:30 05/11/21 16:45 Temperature Pulse Rate 56 L 54 L 53 L Respiratory Rate Blood Pressure 115/66 118/64 124/66 Pulse Oximetry 05/11/21 17:00 05/11/21 17:15 05/11/21 17:30 Temperature Pulse Rate 53 L 55 L 53 L Respiratory Rate Blood Pressure 135/66 125/64 118/67 Pulse Oximetry 05/11/21 17:45 05/11/21 18:00 05/11/21 18:15 Temperature Pulse Rate 57 L 90 52 L Respiratory Ra
[2021-05-12] MEDS: LACTULOSE 20 GM/30 ML UDC PO (17:19)
[2021-05-12] MEDS: CHOLECALCIFEROL 1,000 UNITS TABLET 5000 UNITS PO (17:25)
[2021-05-12] MEDS: WARFARIN (*PBKC) 5 MG TABLET PO (17:25)
[2021-05-12] MEDS: SIMVASTATIN 20 MG TABLET 80 MG PO (17:26)
[2021-05-12 18:00] VITALS: BP 131/61; PULSE 95; RESP 18; TEMP 36.4; O2SAT 98
--- NOTE | 2021-05-12 19:10 | WPDCN ---
Assessment and Plan Additional Plan Assessment and plan 1. Peritonitis secondary to PD catheter infection. PD fluid cultures from bid analyst office is showing Pseudomonas aeruginosa sensitive to ceftazidime as well as cefepime. Patient is currently on ceftazidime day 4 of 10 days therapy. May transition to cefepime with dialysis which can be given on days of dialysis. 2. End-stage renal disease transition from peritoneal dialysis to hemodialysis. Right subclavian hemodialysis catheter in place. 3. Hypertension is stable blood pressure. HPI Data of Consult Date/Time: 05/12/21 19:10 Requesting Physician: Fabiano Berry MD Primary Care Provider: Margarito Cao DO Consult Narrative Narrative: Hu Jasmine is a 81 year old male with significant past medical history for end-stage renal disease on peritoneal dialysis, atrial fibrillation, coronary artery disease, prediabetic state presented to the hospital with progressive abdominal pain going on for approximately 2 weeks. Apparently peritoneal fluid cultures were collected by Nephrology and was found to have Pseudomonas aeruginosa in the PD fluid. PD catheter was removed approximately 4 days ago. Patient has been on ceftazidime x4 days. I was requested to see him for further recommendation of duration of therapy. Currently no nausea or vomiting some abdominal bloating. No diarrhea. No bowel movement x4 days. Review of Systems Review of Systems: All systems reviewed & are unremarkable except as noted in HPI and below (All systems reviewed and are unremarkable except as noted on HPI) FOR[facility]LY [facility], [facility] Past Medical History Medical History Arthritis Asthma Atrial fibrillation Bradycardia CAD in [place] artery Colon cancer screening COPD (chronic obstructive pulmonary disease) Coronary artery disease Erythropoietin deficiency anemia ESRD on peritoneal dialysis Fluid overload, unspecified Gout Hyperlipidemia Hypertension Kidney disease Mixed hyperlipidemia PHONG on CPAP Peritonitis associated with peritoneal dialysis Prediabetes Renal osteodystrophy Right ear impacted cerumen Rosacea URI, acute Surgical History Surgical History History of sinus surgery Hx of CABG Family History Family History Sibling Diabetes mellitus Mother Patient's mother is Hypertension Family history of coronary artery disease Father Family history of coronary artery disease Social History Social History Smoking packs per day: 0.5 Smoking cigarettes per day: 10.0 Years smoked: 5 Smoking pack-years: 2.50 Smoking status: Current some day smoker Tobacco type: cigarettes Second hand tobacco smoke exposure: No Smoking end date: 07/06/1965 Alcohol intake: current Drinks per week: 3 Alcohol use details: 4 Substance use: never Substance use type: does not use Spiritual care concerns: No Meds Home Medications and Allergies Home Medications Medication Instructions Recorded Confirmed Type hydralazine 100 mg PO BID 05/08/21 05/08/21 History nifedipine 30 mg PO DAILY 05/08/21 05/08/21 History sevelamer carbonate 1,600 mg PO TIDWM 05/08/21 05/09/21 History simvastatin 80 mg PO DAILY 05/08/21 05/08/21 History warfarin 5 mg PO DAILY 05/08/21 05/08/21 History B complex-vitamin C-folic acid 1 tablet PO DAILY 05/09/21 05/09/21 History [Shawna-Colton] calcitriol 0.25 mcg PO DAILY 05/09/21 05/09/21 History cholecalciferol (vitamin D3) 50 mcg PO DAILY 05/09/21 05/09/21 History [Vitamin D3] cinacalcet 30 mg PO USEASDIRECTD 05/09/21 05/09/21 History furosemide 80 mg PO BID 05/09/21 05/09/21 History Lacto.acidophilus-Bif.animalis 1 tablet PO DAILY 05/11/21 05/11/21 History [Chewable Probiotic] polyethylene glycol 3350 [Miralax] 1
[2021-05-12] MEDS: SENNA/DOCUSATE SODIUM TABLET 2 TAB PO (22:21)
[2021-05-12] MEDS: MICONAZOLE NITRATE 2% CREAM 30 GM TUBE 1 APPLIC TOPICAL (22:22)
[2021-05-12] MEDS: HYDROcodone/acetaminophen (*CRX) 7.5-325 MG TABLET 1 TAB PO (22:57)
[2021-05-13 06:00] VITALS: BP 107/64; PULSE 64; RESP 18; TEMP 36.8; O2SAT 98
[2021-05-13 07:03] LABS: INR 1.2; Prothrombin Time 15.1 Seconds (11.1-14.7)
[2021-05-13 07:19] LABS: Albumin Level 3.4 g/dL (3.5-5.1); Anion Gap 9 mmol/L (8-16); Blood Urea Nitrogen 52 mg/dL (9-20); Calcium 9.7 mg/dL (8.4-10.2); Carbon Dioxide 33 mmol/L (22-30); Chloride 92 mmol/L (98-107); Estimated CRCL calculation 7 ml/min; Estimated Glomerular Filt Rate 6; Glucose 104 mg/dL (65-110); Phosphorus 4.9 mg/dL (2.5-4.5); Potassium 3.3 mmol/L (3.4-5.0); Sodium 134 mmol/L (137-145)
[2021-05-13] MEDS: MICONAZOLE NITRATE 2% CREAM 30 GM TUBE 1 APPLIC TOPICAL (08:12)
[2021-05-13] MEDS: NIFEdipine 30 MG TAB.ER.24 PO (08:13)
[2021-05-13] MEDS: SEVELAMER CARBONATE 800 MG TABLET 1600 MG PO ×2 (08:13→12:08)
[2021-05-13] MEDS: hydrALAZINE HCL 50 MG TABLET 100 MG PO (08:13)
--- NOTE | 2021-05-13 12:04 | PM.DS ---
DS: Admitting Diagnosis Discharge Date 05/13/21 Admitting Diagnosis Peritonitis DS: Discharge Diagnosis Discharge Diagnosis (1) Peritonitis: Code(s): K65.9 - Peritonitis, unspecified Status: Acute (2) Hypertension: Code(s): I10 - Essential (primary) hypertension Status: Acute (3) Hyperlipidemia: Code(s): E78.5 - Hyperlipidemia, unspecified Status: Acute (4) Coronary artery disease: Code(s): I25.10 - Atherosclerotic heart disease of [place] coronary artery without angina pectoris Status: Acute (5) ESRD on peritoneal dialysis: Onset Date: ~05/2021 Code(s): N18.6 - End stage renal disease; Z99.2 - Dependence on renal dialysis Status: Acute (6) COPD (chronic obstructive pulmonary disease): Code(s): J44.9 - Chronic obstructive pulmonary disease, unspecified Status: Acute (7) Gout: Code(s): M10.9 - Gout, unspecified Status: Acute (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 Please see H&P for details Hospital Course: Patient presented to the ED with complaints of abdominal pain. He was afebrile at home. He remained afebrile throughout his hospital course. White count remained normal throughout his hospital course. Patient has chronic anemia. His hemoglobin here was in the 8-9 range but stable. Patient's INR was subtherapeutic on admission. He was resumed on his Coumadin later in his hospital course after all the procedures were completed. CT abdomen pelvis showed mild intraperitoneal free air consistent with his peritoneal dialysis. He did have suspected cholelithiasis but no evidence of cholecystitis. He had no right upper quadrant pain to suggest this either. No other suspicious findings by CT scan. Patient was admitted and started on IV antibiotics. Patient was initially started on ceftazidime and gentamicin. Patient was seen by Nephrology. General surgery was consulted and patient underwent removal of infected peritoneal dialysis catheter and insertion of a tunneled dialysis catheter for hemodialysis in the right IJ 05/09/2021. He tolerated this well. Abdominal symptoms improved. He tolerated hemodialysis well. He was set up for outpatient dialysis. Infectious Disease was consulted who recommended ceftazidime 1gm after dialysis through 05/21/21. Patient feels well. He is eager for discharge. Patient overall did well and was able to be discharged home on 05/13/2021. Status at Discharge Cognitive/behavioral status at discharge: stable Time Spent with Patient Time attestation: Total time spent providing and/or coordinating discharge services: 35 minutes Time spent: Greater than 30 minutes Specific discharge activities: patient education. Exam Narrative: AF 98.2 107/64 64 18 98% ra Gen - NARD sitting up in a chair Chest - CTA bilaterally. nml RR. Tunnelled catheter Rt upper chest with dressing clean and dry CV - irregularly irregular, 2/6 systolic murmur left USB Abd - Soft, Minimal tenderness. incsions clean, dry and intact with no erythema. Mildly protuberant. Ext - 1+ pedal edema Psych - Nml mood and affect Skin - Warm and dry DS: Data Data Completed and Pending Completed studies during hospitalization: Pending at discharge 05/09/21 13:21 Surgical [PTH] Routine Labs on day of discharge: Labs from last 24 hours 05/13/21 05/13/21 05:53 05:53 PT 15.1 H
--- NOTE | 2021-05-13 12:35 | P.PNNP_ITS ---
Progress Note: A&P Assessment and Plan (1) ESRD on peritoneal dialysis: Onset Date: ~05/2021 Code(s): N18.6 - End stage renal disease; Z99.2 - Dependence on renal dialysis Status: Acute Assessment and Plan: * switched to hemodialysis due to #2 * HD tomorrow here or at outpatient HD unit * follow electrolytes, volume status, and clearance * push fluid removal as tolerated (2) Peritonitis associated with peritoneal dialysis: Qualifiers: Encounter type: subsequent encounter Qualified Code(s): T85.71XD - Infection and inflammatory reaction due to peritoneal dialysis catheter, subsequent encounter Code(s): T85.71XA - Infection and inflammatory reaction due to peritoneal dialysis catheter, initial encounter Status: Acute Assessment and Plan: * s/p PD catheter removal * on antibiotics with HD as outlined by Infectious Disease * clinically improving (3) Fluid overload, unspecified: Onset Date: ~05/2021 Code(s): E87.70 - Fluid overload, unspecified Status: Acute Assessment and Plan: * slow and steady improvement * continues aggressive fluid removal as tolerated (4) Hypertension: Code(s): I10 - Essential (primary) hypertension Status: Chronic Assessment and Plan: * reasonable control * follow trend of hemodynamics (5) 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 Subjective Date/time seen: 05/13/21 12:35 Chart reviewed -- assuming care from Dr. Beyer; doing reasonably well at the time of my visit; anxious for discharge; at bedside; overall, doing signif icantly better in comparison to presentation/admission, no apparent distress noted. Exam Narrative: General: WD/WN male in NAD Heart: normal S1 and S2; no rub Lungs: clear to auscultation Abdomen: soft, nontender, nondistended, positive bowel sounds Extremities: no cyanosis or clubbing; no edema Skin: warm and dry Objective Data Vital Signs Vital Signs: Vital Signs Temp Pulse Resp BP Pulse Ox 05/13/21 06:00 36.8 C 64 18 107/64 98 05/12/21 18:00 36.4 C 95 18 131/61 98 05/12/21 14:00 36.5 C 57 L 18 106/55 L 97 Intake/Output Intake/Output: Intake & Output 05/11/21 05/12/21 05/12/21 05/13/21 00:59 00:59 23:59 23:59 Intake Total 540 Output Total Balance 540 Meds/Results Medications: Active Medications Generic Name Dose Route Start Last Admin Trade Name Freq PRN Reason Stop Dose Admin Hydrocodone Bitart/Acetaminophen 1 tab 05/09/21 14:57 05/10/21 14:38 Hydrocodone/Acetaminophen (*Crx) 5-325 Mg Tablet PO 1 tab Q4H PRN Administration Pain Rated 4-6 Hydrocodone Bitart/Acetaminophen 1 tab 05/09/21 14:57 05/12/21 22:57 Hydrocodone/Acetaminophen (*Crx) 7.5-325 M
--- NOTE | 2021-05-13 12:35 | PM.PNNEP ---
Progress Note: A&P Assessment and Plan (1) ESRD on peritoneal dialysis: Onset Date: ~05/2021 Code(s): N18.6 - End stage renal disease; Z99.2 - Dependence on renal dialysis Status: Acute Assessment and Plan: switched to hemodialysis due to #2 HD tomorrow here or at outpatient HD unit follow electrolytes, volume status, and clearance push fluid removal as tolerated (2) Peritonitis associated with peritoneal dialysis: Qualifiers: Encounter type: subsequent encounter Qualified Code(s): T85.71XD - Infection and inflammatory reaction due to peritoneal dialysis catheter, subsequent encounter Code(s): T85.71XA - Infection and inflammatory reaction due to peritoneal dialysis catheter, initial encounter Status: Acute Assessment and Plan: s/p PD catheter removal on antibiotics with HD as outlined by Infectious Disease clinically improving (3) Fluid overload, unspecified: Onset Date: ~05/2021 Code(s): E87.70 - Fluid overload, unspecified Status: Acute Assessment and Plan: slow and steady improvement continues aggressive fluid removal as tolerated (4) Hypertension: Code(s): I10 - Essential (primary) hypertension Status: Chronic Assessment and Plan: reasonable control follow trend of hemodynamics (5) 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 Subjective Date/time seen: 05/13/21 12:35 Chart reviewed -- assuming care from Dr. Beyer; doing reasonably well at the time of my visit; anxious for discharge; at bedside; overall, doing significantly better in comparison to presentation/admission, no apparent distress noted. Exam Narrative: General: WD/WN male in NAD Heart: normal S1 and S2; no rub Lungs: clear to auscultation Abdomen: soft, nontender, nondistended, positive bowel sounds Extremities: no cyanosis or clubbing; no edema Skin: warm and dry Objective Data Vital Signs Vital Signs: Vital Signs Temp Pulse Resp BP Pulse Ox 05/13/21 06:00 36.8 C 64 18 107/64 98 05/12/21 18:00 36.4 C 95 18 131/61 98 05/12/21 14:00 36.5 C 57 L 18 106/55 L 97 Intake/Output Intake/Output: Intake & Output 05/11/21 05/12/21 05/12/21 05/13/21 00:59 00:59 23:59 23:59 Intake Total 540 Output Total Balance 540 Meds/Results Medications: Active Medications Generic Name Dose Route Start Last Admin Trade Name Freq PRN Reason Stop Dose Admin Hydrocodone Bitart/Acetaminophen 1 tab 05/09/21 14:57 05/10/21 14:38 Hydrocodone/Acetaminophen (*Crx) 5-325 Mg Tablet PO 1 tab Q4H PRN Administration Pain Rated 4-6 Hydrocodone Bitart/Acetaminophen 1 tab 05/09/21 14:57 05/12/21 22:57 Hydrocodone/Acetaminophen (*Crx) 7.5-325 Mg Tablet PO 1 tab Q6H PRN Administration Pain Rated 7-10 Epoetin Antwon-epbx 10,000 units 05/09/21 08:00 05/10/21 10:55 Epoetin Antwon-Epbx 10,000 Units/Ml Vial IV PUSH 10,000 units MoWeFr@0900 [facility] Administration Fentanyl Citrate 25 mcg 05/09/21 11:11 Fentanyl Citrate Inj (*Crx) 100 Mcg/2 Ml Vial IV PUSH Q2M PRN Pain Hydralazine HCl 100 mg 05/09/21 08:00 05/13/21 08:13 Hydralazine Hcl 50 Mg Tablet PO 100 mg BIDWM LES Administration Gentamicin Sulfate 90 mg/ 102.25 mls @ 100 mls/hr 05/10/21 13:00 Dextrose IVPB PRN PRN HEMODIALYSIS PATIENT Ceftazidime 1 gm/ Dextrose 50 mls @ 100 mls/hr 05/13/21 12:51 IVPB Q24H [facility] Miconazole
--- NOTE | 2021-05-13 12:43 | WPDINFPN2 ---
Progress Note: A&P Assessment and Plan (1) Peritonitis associated with peritoneal dialysis: Code(s): T85.71XA - Infection and inflammatory reaction due to peritoneal dialysis catheter, initial encounter Status: Acute Assessment and Plan: 1. Pseudomonas peritonitis, better 2. CRF, now on HD 3. COPD, with chronic [place] REC Ceftazidime 1 gram at end of each HD through 05/21/21. Ok discharge. Discussed. Subjective Date/time seen: 05/13/21 12:43 Interval history: no abd pain n/v/, good appetite Exam Narrative: afebrile Const: General: no acute distress Eyes: General: appearance normal, both eyes and all related structures Resp: Effort & Inspection: normal respiratory effort Auscultation: clear to auscultation bilaterally Cardio: Rate: regular rate Rhythm: regular rhythm Heart sounds: no murmurs GI: Inspection: non-distended GI Palp: Yes Soft to palpation and No Tenderness to palpation present (GI) Skin: General skin exam: normal color and no rashes or lesions noted Objective Data Vital Signs Vital Signs: Vital Signs - 24 hr 05/12/21 14:00 05/12/21 18:00 05/13/21 06:00 Temperature 36.5 C 36.4 C 36.8 C Pulse Rate 57 L 95 64 Respiratory Rate 18 18 18 Blood Pressure 106/55 L 131/61 107/64 Pulse Oximetry 97 98 98 Intake/Output Intake/Output: Intake & Output 05/11/21 05/12/21 05/12/21 05/13/21 00:59 00:59 23:59 23:59 Intake Total 540 Output Total Balance 540 Meds/Results Medications: Active Medications Generic Name Dose Route Start Last Admin Trade Name Freq PRN Reason Stop Dose Admin Hydrocodone Bitart/Acetaminophen 1 tab 05/09/21 14:57 05/10/21 14:38 Hydrocodone/Acetaminophen (*Crx) 5-325 Mg Tablet PO 1 tab Q4H PRN Administration Pain Rated 4-6 Hydrocodone Bitart/Acetaminophen 1 tab 05/09/21 14:57 05/12/21 22:57 Hydrocodone/Acetaminophen (*Crx) 7.5-325 Mg Tablet PO 1 tab Q6H PRN Administration Pain Rated 7-10 Epoetin Antwon-epbx 10,000 units 05/09/21 08:00 05/10/21 10:55 Epoetin Antwon-Epbx 10,000 Units/Ml Vial IV PUSH 10,000 units MoWeFr@0900 [facility] Administration Fentanyl Citrate 25 mcg 05/09/21 11:11 Fentanyl Citrate Inj (*Crx) 100 Mcg/2 Ml Vial IV PUSH Q2M PRN Pain Hydralazine HCl 100 mg 05/09/21 08:00 05/13/21 08:13 Hydralazine Hcl 50 Mg Tablet PO 100 mg BIDWM LES Administration Ceftazidime 0.5 gm/ Dextrose 50 mls @ 100 mls/hr 05/09/21 23:00 05/12/21 22:55 IVPB Infused Q24H LES Infusion Gentamicin Sulfate 90 mg/ 102.25 mls @ 100 mls/hr 05/10/21 13:00 Dextrose IVPB PRN PRN HEMODIALYSIS PATIENT Miconazole Nitrate 1 applic 05/12/21 21:00 05/13/21 08:12 Miconazole Nitrate 2% Cream 30 Gm Tube TOPICAL 1 applic Q12HR [facility] Administration Morphine Sulfate 4 mg 05/08/21 21:10 05/09/21 08:22 Morphine Sulfate (*Crx) 4 Mg/Ml Inj IV PUSH 4 mg Q2H PRN Administration Pain Rated 7-10 Naloxone HCl 0.1 mg 05/09/21 14:57 Naloxone Hcl 0.4 Mg/Ml Vial IV PUSH Q2M PRN Opiate Reversal Nifedipine 30 mg 05/09/21 09:00 05/13/21 08:13 Nifedipine 30 Mg Tab.Er.24 PO 30 mg DAILY LES Administration Ondansetron HCl 4 mg 05/08/21 21:10 Ondansetron Inj 4 Mg/2 Ml Vial IV PUSH Q4H PRN Nausea Senna/Docusate Sodium 2 tab 05/09/21 21:00 05/12/21 22:21 Senna/Docusate Sodium Tablet PO 2 tab HS LES Administration Sevelamer Carbonate 1,600 mg 05/09/21 08:00 05/13/21 12:08 Sevelamer Carbonate 800 Mg Tablet PO 1,600 mg TIDWM LES Administration Simvastatin 80 mg 05/10/21 17:00 05/12/21 17:26 Simvastatin 20 Mg Tablet PO 80 mg DAILY@1700 [facility] Administration Vitamin D 5,000 units 05/10/21 17:00 11/07/21 17:25 Cholecalciferol 1,000 Units Tablet PO 5,000 units DAILY@1700 [facility] Administration Warfarin Sodium 5 mg 05/12/21 17:00 05/12/21 17:25 Warfarin (*Pbkc) 5 Mg Tablet PO 5 mg DAILY@1700
[2021-05-15 02:41] LABS: Hepatitis B Core Ab Total Nonreactive (Nonreactive)
--- NOTE | 2021-05-15 10:07 | PC.NURSE ---
Hep B core total is non-reactive. Dr. Nela harris.
== END 2021-05-13 14:19 | disposition home or self-care (01) | DRG 907 ==
LOC: ANHED 21:06 → ANH3MEDSUR 21:34
PROVIDERS: Family Medicine; Internal Medicine Nephrology; Surgery; Admitting Provider Internal Medicine; Emergency Provider Emergency Medicine; PCP Internal Medicine; Visit Provider Hospitalist
PROC: 0JH63XZ Insertion of Tunneled Vascular Access Device into Chest Subcutaneous Tissue and Fascia, Percutaneous Approach (ICD-10-PCS; CPT 36908; principal; 2021-05-09 11:30)
PROC: 0JH63XZ Insertion of Tunneled Vascular Access Device into Chest Subcutaneous Tissue and Fascia, Percutaneous Approach (ICD-10-PCS; CPT 49440; 2021-05-09 11:30)
DX: T85.71XA Infection and inflammatory reaction due to peritoneal dialysis catheter, initial encounter (principal); K65.8 Other peritonitis; N18.6 End stage renal disease; I12.0 Hypertensive chronic kidney disease with stage 5 chronic kidney disease or end stage renal disease; B96.5 Pseudomonas (aeruginosa) (mallei) (pseudomallei) as the cause of diseases classified elsewhere; J44.9 Chronic obstructive pulmonary disease, unspecified; E78.5 Hyperlipidemia, unspecified; I25.10 Atherosclerotic heart disease of native coronary artery without angina pectoris; M10.9 Gout, unspecified; I48.91 Unspecified atrial fibrillation; R73.03 Prediabetes; M19.90 Unspecified osteoarthritis, unspecified site; L71.9 Rosacea, unspecified; D63.1 Anemia in chronic kidney disease; N25.0 Renal osteodystrophy; G47.33 Obstructive sleep apnea (adult) (pediatric); Z95.1 Presence of aortocoronary bypass graft; Z99.2 Dependence on renal dialysis; Z79.01 Long term (current) use of anticoagulants
CPT/HCPCS: 36415; 74176; 76937; 77001; 80048; 80053; 80069; 80170; 81001; 82948; 83605; 83690; 83735; 85025; 85027; 85610; 85730; 86704; 86706; 87040; 87340; 88300; 96365; 96375; 96376; 99285; A9270; C1750; G0257; G0378; J0690; J0713; J1580; J1644; J2270; J2405; J2704; J3010; J7030; J7040; P9047; Q5105

== ENCOUNTER 2021-05-20 11:01 | Outpatient (CLI) | payer OTHER, SELFPAY ==
[2021-05-20 11:39] LABS: INR 1.6; Prothrombin Time 19.1 Seconds (11.1-14.7)
== END 2021-05-20 11:02 | disposition home or self-care (01) ==
LOC: ANHLAB 11:03
PROVIDERS: PCP Internal Medicine; Visit Provider Internal Medicine
DX: I48.91 Unspecified atrial fibrillation (principal)
CPT/HCPCS: 36415; 85610

== ENCOUNTER 2021-07-30 22:55 | Emergency (ER) | payer OTHER, SELFPAY ==
[2021-07-30 22:58] VITALS: BP 157/82; RESP 18; TEMP 36.5; O2SAT 100
--- NOTE | 2021-07-30 23:46 | ED.GENADULT ---
HPI - General Adult General Chief complaint: Epistaxis Stated complaint: nosebleed - takes coumadin Time Seen by Provider: 07/30/21 23:29 History of Present Illness HPI narrative: Patient 81-year-old gentleman who presents the emergency department with chief complaint of epistaxis. Patient reports he is on Coumadin and reports that he sneezed this evening and started having significant bleeding out of the right nostril. Patient states he went there about a roll of toilet paper and is continued to bleed. The patient reports has never had issues with epistaxis before in the past patient denies shortness of breath denies chest pain reports that his last INR was in therapeutic range. Related Data Home Medications Medication Instructions Recorded Confirmed nifedipine 30 mg PO DAILY 05/08/21 06/05/21 sevelamer carbonate 1,600 mg PO TIDWM 05/08/21 06/05/21 simvastatin 80 mg PO DAILY 05/08/21 06/05/21 Shawna-Colton 1 tablet PO DAILY 05/09/21 06/05/21 calcitriol 0.25 mcg PO DAILY 05/09/21 06/05/21 cholecalciferol (vitamin D3) 50 mcg PO DAILY 05/09/21 06/05/21 [Vitamin D3] cinacalcet 30 mg PO USEASDIRECTD 05/09/21 06/05/21 furosemide 80 mg PO BID 05/09/21 06/05/21 Lacto.acidophilus-Bif.animalis 1 tablet PO DAILY 05/11/21 06/05/21 polyethylene glycol 3350 [Miralax] 17 g PO DAILY 05/11/21 06/05/21 Allergies Allergy/AdvReac Type Severity Reaction Status Date / Time prednisone AdvReac Irritable Verified 06/05/21 11:00 Review of Systems Review of Systems: A 10 system review of systems was completed on the patient and is negative except for what is stated in the HPI. Nursing and ancillary documentation was reviewed. [facility] Past Medical History Medical History Arthritis Asthma Atrial fibrillation Bradycardia CAD in [place] artery Colon cancer screening COPD (chronic obstructive pulmonary disease) Coronary artery disease Erythropoietin deficiency anemia ESRD on peritoneal dialysis (~05/2021) Catheter recently removed for infection Fluid overload, unspecified (~05/2021) Gout Hyperlipidemia Hypertension Kidney disease Mixed hyperlipidemia PHONG on CPAP Peritonitis associated with peritoneal dialysis Prediabetes Renal osteodystrophy Right ear impacted cerumen [place] URI, acute Surgical History Surgical History History of sinus surgery Hx of CABG Family History Family History Sibling Diabetes mellitus Mother Patient's mother is Hypertension Family history of coronary artery disease Father Family history of coronary artery disease Social History Social History Smoking packs per day: 0.5 Smoking cigarettes per day: 10.0 Years smoked: 5 Smoking pack-years: 2.50 Smoking status: Former smoker Tobacco type: cigarettes Second hand tobacco smoke exposure: No Smoking end date: 07/06/1965 Alcohol intake: current Drinks per week: 3 Alcohol use details: 4 Substance use: never Substance use type: does not use Spiritual care concerns: No Exam Narrative: GENERAL: Well-appearing, well-nourished, and in no acute distress. HEAD: Normocephalic, atraumatic. EYES: PERRLA and EOMI. ENT: Nares clear, no rhinorrhea, active epistaxis present in the right nostril. Mucous membranes moist. NECK: Supple. CHEST: Clear to auscultation. No respiratory distress. HEART: Regular rate and rhythm. No murmur heard. Normal peripheral pulses. ABDOMEN: Soft, nontender, nondistended, normal active bowel sounds. EXTREMITIES: Normal range of motion. No edema. SKIN: Warm, dry, no rash. NEURO: No focal deficits. Alert and oriented x3. PSYCH: Normal mood and affect. Course Vital Signs Vital signs: Vital Signs Temperature 36.5 C 07/30/21 22:58 Res
[2021-07-31 00:57] LABS: Basophils Percent Auto 0.4 % (0.2-1.2); Eosinophils Absolute Auto 0.7 K/mm3 (0-0.3); Eosinophils Percent Auto 9.3 % (0-4.4); Hematocrit 36.9 % (42.0-52.0); Immature Granulocyte Absolute 0.02 K/mm3 (0.00-0.031); Immature Granulocyte Percent A 0.3 % (0-0.5); Lymphocytes Percent Auto 19.1 % (18.3-44.2); Mean Corpuscular HGB Conc 32.5 g/dl (32-36); Mean Corpuscular Hemoglobin 32.6 pg (26-34); Mean Corpuscular Volume 100.3 fl (80-100); Mean Platelet Volume 10.8 fl (7.4-10.4); Monocytes Absolute Auto 0.9 K/mm3 (0.1-0.6); Monocytes Percent Auto 11.2 % (2.6-8.5); Neutrophils Absolute Auto 4.7 K/mm3 (1.3-6.7); Neutrophils Percent Auto 59.7 % (45.5-73.1); Platelet Count Result 151 k/mm3 (150-375); Red Blood Count 3.68 M/mm3 (4.6-6.20); White Blood Count 7.8 K/mm3 (4.5-10.0)
[2021-07-31 01:04] VITALS: BP 177/76; PULSE 58; RESP 18; O2SAT 100
[2021-07-31 01:06] LABS: Anion Gap 14 mmol/L (8-16); Blood Urea Nitrogen 56 mg/dL (9-20); Calcium 10.7 mg/dL (8.4-10.2); Carbon Dioxide 27 mmol/L (22-30); Chloride 101 mmol/L (98-107); Estimated CRCL calculation 6 ml/min; Estimated Glomerular Filt Rate 5; Glucose 116 mg/dL (65-110); Potassium 4.8 mmol/L (3.4-5.0); Sodium 142 mmol/L (137-145)
[2021-07-31 01:10] LABS: INR 3.3; Prothrombin Time 32.7 Seconds (11.1-14.7)
[2021-07-31 02:05] VITALS: BP 164/89; PULSE 56; RESP 17; O2SAT 99
== END 2021-07-31 01:40 | disposition home or self-care (01) ==
PROVIDERS: Emergency Provider Emergency Medicine; PCP Internal Medicine
DX: R04.0 Epistaxis (principal); I48.91 Unspecified atrial fibrillation; I25.10 Atherosclerotic heart disease of native coronary artery without angina pectoris; J44.9 Chronic obstructive pulmonary disease, unspecified; I12.0 Hypertensive chronic kidney disease with stage 5 chronic kidney disease or end stage renal disease; D63.1 Anemia in chronic kidney disease; N18.6 End stage renal disease; E78.2 Mixed hyperlipidemia; R73.03 Prediabetes; N25.0 Renal osteodystrophy; G47.33 Obstructive sleep apnea (adult) (pediatric); M19.90 Unspecified osteoarthritis, unspecified site; Z95.1 Presence of aortocoronary bypass graft; Z79.01 Long term (current) use of anticoagulants; Z87.891 Personal history of nicotine dependence
CPT/HCPCS: 30901; 36415; 80048; 85025; 85610; 99283

== ENCOUNTER 2021-08-06 16:14 | Inpatient (IN) | payer OTHER, SELFPAY ==
[2021-08-06] VITALS (13 sets, daily range): BP systolic 98–145; BP diastolic 43–79; PULSE 65–78; RESP 15–19; TEMP 36.7; O2SAT 96–100
--- NOTE | ~2021-08-06 | XR_ITS ---
EXAMINATION: XR chest ET placement DATE: 08/09/2021 14:50 INDICATION: Intubation. TECHNIQUE: A single frontal view of the chest was obtained. COMPARISON: Chest single view 05/09/2021, CT abdomen and pelvis 05/08/2021 FINDINGS: There are airspace opacities in all lung zones bilaterally. No pleural effusion or pneumoth orax. Cardiomegaly is noted. Median sternotomy wires and mediastinal surgical clips are seen, likely from prior coronary artery bypass grafting. A right internal jugular central venous catheter is seen with tip at the superior cavoatrial junction. The nasogastric tube tip is beyond the inferior margin of the radiograph, but at least to the stomach. Endotracheal tube tip is 3.2 cm above the leatha. IMPRESSION: 1. Worsened diffuse lung disease, consistent with pulmonary edema versus pneumonia. 2. Cardiomegaly. Reviewed, dictated and finalized at location E. T SERVICES COORDINATOR IMPRESSION: 1. Worsened diffuse lung disease, consistent with pulmonary edema versus pneumo miguel. 2. Cardiomegaly.
--- NOTE | ~2021-08-06 | XR_ITS ---
EXAMINATION: XR abdomen NG/feed tube insert DATE: 08/09/2021 14:50 INDICATION: Nasogastric tube placement. TECHNIQUE: A supine view of the abdomen was obtained. COMPARISON: None. FINDINGS: The lower abdomen and right lateral aspect of the abdomen are excluded. The nasogastric tub e tip is in the stomach. The endotracheal tube tip is 2.6 cm above the leatha. Median sternotomy wire s and mediastinal surgical clips are seen, likely from prior coronary artery bypass grafting. IMPRESSION: 1. Nasogastric tube tip in the stomach. Reviewed, dictated and finalized at location E. [employer]
[2021-08-06 18:50] LABS: Basophils Percent Auto 0.1 % (0.2-1.2); Eosinophils Percent Auto 0.3 % (0-4.4); Hematocrit 22.3 % (42.0-52.0); Hemoglobin 7.3 g/dL (14.0-18.0); Immature Granulocyte Absolute 0.03 K/mm3 (0.00-0.031); Immature Granulocyte Percent A 0.4 % (0-0.5); Lymphocytes Absolute Auto 1.14 K/mm3 (0.9-3.2); Lymphocytes Percent Auto 14.6 % (18.3-44.2); Mean Corpuscular HGB Conc 32.7 g/dl (32-36); Mean Corpuscular Hemoglobin 32.9 pg (26-34); Mean Corpuscular Volume 100.5 fl (80-100); Mean Platelet Volume 10.8 fl (7.4-10.4); Monocytes Percent Auto 12.8 % (2.6-8.5); Neutrophils Absolute Auto 5.6 K/mm3 (1.3-6.7); Neutrophils Percent Auto 71.8 % (45.5-73.1); Platelet Count Result 147 k/mm3 (150-375); Red Blood Count 2.22 M/mm3 (4.6-6.20); Red Cell Distribution Width 14.4 % (11.5-14.5); White Blood Count 7.8 K/mm3 (4.5-10.0)
[2021-08-06 19:02] LABS: Anion Gap 13 mmol/L (8-16); Blood Urea Nitrogen 118 mg/dL (9-20); Calcium 9.6 mg/dL (8.4-10.2); Carbon Dioxide 24 mmol/L (22-30); Chloride 98 mmol/L (98-107); Estimated CRCL calculation 5 ml/min; Estimated Glomerular Filt Rate 4; Glucose 122 mg/dL (65-110); Potassium 3.8 mmol/L (3.4-5.0); Sodium 135 mmol/L (137-145)
[2021-08-06 19:13] LABS: INR 7.6
[2021-08-06 19:14] LABS: Prothrombin Time 61.6 Seconds (11.1-14.7)
--- NOTE | 2021-08-06 19:21 | PC.NURSE ---
assuming care of pt.
[2021-08-06] MEDS: SODIUM CHLORIDE 0.9% IV 1,000 ML 150 ML IV CONT (19:26)
--- NOTE | 2021-08-06 19:46 | ECG_ITS ---
Measurements Intervals [place] Rate: 72 P: ID: 0 QRS: -46 QRSD: 134 T: 121 QT: 433 QTc: 476 Interpretive Statements ATRIAL FIBRILLATION INTRAVENTRICULAR CONDUCTION DELAY LEFT VENTRICULAR HYPERTROPHY WITH ST-T CHANGE BASELINE ARTIFACT- II, III ABNORMAL ECG Electronically Signed On 08-07-2021 6:27:50 BREAKER ENGINEER by Raheem Gee D.O.
--- NOTE | 2021-08-06 19:54 | PM.IMHP ---
H&P: HPI History of Present Illness Date/Time: 08/06/21 19:54 Chief Complaint: Syncope Narrative: This is a 81-year-old male with past medical history significant for end-stage renal disease on peritoneal dialysis, atrial fibrillation, on chronic anticoagulation, coronary artery disease, asthma, COPD, hyperlipidemia, hypertension, obstructive sleep apnea on CPAP, prediabetes. Patient was brought to the emergency room today after he had 3 syncopal episodes while at home mainly when trying to get up from sitting position and while walking to the bathroom. Patient has had epistaxis for the last several days he was found to have an elevated INR had been to the ENT where he had a rhino rocket placed he also noted black stools. Patient had peritoneal catheter associated peritonitis which require explanted peritoneal dialysis catheter and require hemodialysis for several weeks patient was does able to reestablish his peritoneal catheter. Most of the history has been obtained from who is at bedside. Patient denies any fevers, rigors chills, cough, sputum production, no chest pain, no abdominal pain, no shortness of breath, no PND no orthopnea. Patient wears his CPAP every night for the last 5 years. Preliminary workup in emergency room was significant for elevated INR and BUN is slightly decreased hemoglobin from baseline as well. Patient has been admitted for further evaluation, management and treatment. Review of Systems Review of Systems: Syncope x3, epistaxis, melena. Constitutional: Constitutional: Denies chills, Denies fever(s), Denies night sweats and Reports weakness Eyes: Eyes: Denies change in vision ENT: Reports epistaxis Cardiovascular: Cardiovascular: Denies chest pain, Reports syncope, Denies pedal edema, Denies leg edema, Reports lightheadedness, Denies radiating jaw, neck or arm pain, Denies palpitations, Denies dyspnea on exertion, Denies orthopnea and Denies paroxysmal nocturnal dyspnea Respiratory: Respiratory: Denies cough, Denies excessive phlegm production, Denies dyspnea and Denies wheezing Gastrointestinal: Gastrointestinal: Denies abdominal pain, Reports melena, Denies dyspepsia, Denies heartburn, Denies diarrhea, Denies nausea and Denies vomiting Genitourinary: Genitourinary: Denies dysuria Musculoskeletal: Musculoskeletal: Denies arthralgias and Denies joint swelling Integumentary/Breasts: Skin/Breast: Denies rash Neurologic: Denies focal weakness and Denies Sensory deficit (Neuro) Psychiatric: Psychiatric: Reports no additional psychiatric complaints and Reports as per HPI Endocrine: Endocrine: Denies cold intolerance, Denies heat intolerance, Denies polyphagia, Denies polydipsia, Denies polyuria and Denies palpitations Hematologic/Lymphatic: Hematologic/Lymphatic: Reports no additional hematologic/lymphatic complaints Allergic/Immunologic: Allergic/Immunologic: Reports no additional allergic/immunologic complaints and Reports as per HPI PMFSH Past Medical History Medical History Arthritis Asthma Atrial fibrillation Bradycardia CAD in [place] artery Colon cancer screening COPD (chronic obstructive pulmonary disease) Coronary artery disease Erythropoietin deficiency anemia ESRD on peritoneal dialysis (~05/2021) Catheter recently removed for infection Fluid overload, unspecified (~05/2021) Gout Hyperlipidemia Hypertension Kidney disease Mixed hyperlipidemia PHONG on CPAP Peritonitis associated with peritoneal dialysis Prediabetes Renal osteodystrophy Right ear impacted cerumen Rosacea URI, acute Surgical History Surgical History History of sinus surgery Hx of CABG Family History Family History Sibling Diabetes mellitus Mother Patient's mother is Hypertension Family history of coronary artery disease Father Family histor
[2021-08-06 20:33] LABS: Partial Thromboplastin Time 52.4 SECONDS (22.3-36.8)
[2021-08-06 21:51] LABS: SARS-CoV-2 RNA PCR Negative
--- NOTE | 2021-08-06 22:19 | ED.SYNCOPE ---
HPI - Syncope General Chief Complaint: Syncope Stated Complaint: Syncope Time Seen by Provider: 08/06/21 18:31 Source: patient and family Mode of arrival: ambulatory Limitations: clinical condition History of Present Illness HPI narrative: 81-year-old male Arrives with complaints of having 3 syncopal episodes at home today Each one of them was while he was either walking to the bathroom or trying to stand up from the toilet after going to the bathroom but none of them occurred while he was actually trying to go to the bathroom In each case he became weak lightheaded and either slumped over or had to be assisted to the ground and then regained consciousness quite swiftly He has a history of A. fib but did not note that his heart was racing, he did not have any chest pain or shortness of breath He has chronic kidney failure was on peritoneal dialysis for a long time recently had to be temporized with hemodialysis and was switched back to peritoneal about 7 to 10 days ago. He sees Dr. Sukumar collado He also has been following up an ER visit by seeing Dr. Cortés in the office in the last 3 or 4 days for epistaxis He is on Coumadin for his A. fib, his INR was very high, the Coumadin was supposed to have been stopped but it is unclear exactly how long it was actually held for, does seem that it was resumed without a reduction in dose and his INR again is very high this evening He notes that following but not prior to the start of the nosebleeds he has had some black stools Nose has been cauterized and packed and continues to leak a little bit of blood-tinged fluid here and there but he really is not having any further active bleeding His record documents pretty significant anemia previously presumably relating to his chronic kidney failure but just a week ago his H&H was more or less normal for the first time in many measurements Related Data Home Medications Medication Instructions Recorded Confirmed nifedipine 30 mg PO DAILY 05/08/21 08/05/21 sevelamer carbonate 1,600 mg PO TIDWM 05/08/21 08/05/21 simvastatin 80 mg PO DAILY 05/08/21 08/05/21 Shawna-Colton 1 tablet PO DAILY 05/09/21 08/05/21 calcitriol 0.25 mcg PO DAILY 05/09/21 08/05/21 cholecalciferol (vitamin D3) 50 mcg PO DAILY 05/09/21 08/05/21 [Vitamin D3] cinacalcet 30 mg PO USEASDIRECTD 05/09/21 08/05/21 furosemide 80 mg PO BID 05/09/21 08/05/21 Lacto.acidophilus-Bif.animalis 1 tablet PO DAILY 05/11/21 08/05/21 polyethylene glycol 3350 [Miralax] 17 g PO DAILY 05/11/21 08/05/21 Allergies Allergy/AdvReac Type Severity Reaction Status Date / Time prednisone AdvReac Irritable Verified 08/05/21 13:52 Review of Systems Review of Systems: All systems reviewed & are unremarkable except as noted in HPI and below Constitutional: Constitutional: Reports no additional constitutional complaints, Denies chills, Reports fatigue, Denies fever(s), Denies headache(s) and Reports weakness Eyes: Eyes: Reports no additional eye complaints and Denies change in vision ENT: Denies headache(s), Reports epistaxis, Reports nasal congestion and Denies sore throat Cardiovascular: Cardiovascular: Denies chest pain and Denies dyspnea Respiratory: Respiratory: Denies cough and Denies dyspnea Gastrointestinal: Gastrointestinal: Denies abdominal pain, Denies diarrhea and Denies vomiting Comments: Dark stools Genitourinary: Genitourinary: Denies dysuria and Denies urinary frequency Musculoskeletal: Musculoskeletal: Denies deformity, Denies arthralgias, Denies joint swelling and Denies numbness Integumentary/Breasts: Skin/Breast: Denies rash and Denies wounds Neurologic: Reports dizziness, Reports syncope, Denies headache(s), Denies focal weakness, Denies numbness and Reports weakness Psychiatric: Psychiatric: Reports no additional psychiatric complaints Endocrine: Endocrine: Reports no additional endocrine complaints Hematologic/Lymphatic: Hematologic/Lymphatic: Reports no additional hematolog
[2021-08-06] MEDS: FAMOTIDINE 20 MG/2 ML VIAL IV PUSH (22:22)
[2021-08-06] MEDS: LACTATED RINGERS 1,000 ML 50 ML IV CONT (22:22)
--- NOTE | 2021-08-06 23:34 | ADMGEN ---
This patient, Hu Jasmine, was admitted to Medical Room 346-01. Patient/family oriented to hospital policies and general routines including ID bracelet, bed and alarms, visiting hours, pain management, procedures, bathroom and other care routines, personal items, smoking policy, room service/diet, and visiting hours. Information on how to activate the Rapid Response Team has been discussed. Patient/Family are encouraged to report perceived risks to care and to ask questions if they do not understand what they are told or what they should do.
[2021-08-07] VITALS (20 sets, daily range): BP systolic 122–146; BP diastolic 52–76; PULSE 60–89; RESP 16–20; TEMP 36.1–37.3; O2SAT 97–100
[2021-08-07] MEDS: PHYTONADIONE INJ 10 MG/ML AMP SUB-Q (01:46)
[2021-08-07 06:02] LABS: Basophils Percent Auto 0.3 % (0.2-1.2); Eosinophils Absolute Auto 0.2 K/mm3 (0-0.3); Immature Granulocyte Absolute 0.01 K/mm3 (0.00-0.031); Immature Granulocyte Percent A 0.2 % (0-0.5); Lymphocytes Percent Auto 24.1 % (18.3-44.2); Mean Corpuscular HGB Conc 32.2 g/dl (32-36); Mean Corpuscular Hemoglobin 32.6 pg (26-34); Mean Corpuscular Volume 101.1 fl (80-100); Mean Platelet Volume 10.8 fl (7.4-10.4); Monocytes Absolute Auto 1.1 K/mm3 (0.1-0.6); Monocytes Percent Auto 16.6 % (2.6-8.5); Neutrophils Absolute Auto 3.7 K/mm3 (1.3-6.7); Neutrophils Percent Auto 55.8 % (45.5-73.1); Platelet Count Result 124 k/mm3 (150-375); Red Blood Count 1.78 M/mm3 (4.6-6.20); Red Cell Distribution Width 14.5 % (11.5-14.5); White Blood Count 6.6 K/mm3 (4.5-10.0)
[2021-08-07 06:20] LABS: Prothrombin Time 60.9 Seconds (11.1-14.7)
[2021-08-07 06:21] LABS: Hemoglobin 5.8 g/dL (14.0-18.0)
[2021-08-07 07:11] LABS: INR 7.5
[2021-08-07 09:40] LABS: Ammonia < 9 umol/L (9-30)
[2021-08-07] MEDS: CHOLECALCIFEROL 1,000 UNITS TABLET 2000 UNITS PO (09:44)
[2021-08-07] MEDS: SEVELAMER CARBONATE 800 MG TABLET 1600 MG PO ×3 (09:44→17:22)
[2021-08-07] MEDS: ACIDOPHILUS/BULGARICUS CHEWABLE TABLET 1 TABLET PO (09:45)
[2021-08-07] MEDS: SIMVASTATIN 20 MG TABLET 80 MG PO (09:45)
[2021-08-07] MEDS: polyethylene glycoL 3350 17 GM POWD.PACK PO (09:45)
[2021-08-07] MEDS: VITAMIN B CMPLX/VIT C/FOLIC AC 1 CAPSULE 1 CAP PO (09:45)
[2021-08-07] MEDS: SODIUM CHLORIDE 0.9% IV 250 ML 30 ML IV CONT (09:47)
[2021-08-07 09:51] LABS: Alanine Aminotransferase 14 U/L (4-50); Albumin Level 3.4 g/dL (3.5-5.1); Alkaline Phosphatase 67 U/L (38-126); Anion Gap 11 mmol/L (8-16); Aspartate Amino Transferase 21 U/L (17-59); Bilirubin,Total 0.5 mg/dL (0.2-1.3); Calcium 9.4 mg/dL (8.4-10.2); Carbon Dioxide 23 mmol/L (22-30); Chloride 102 mmol/L (98-107); Estimated CRCL calculation 5 ml/min; Estimated Glomerular Filt Rate 4; Glucose 103 mg/dL (65-110); Lactate Dehydrogenase 334 U/L (313-618); Potassium 4.1 mmol/L (3.4-5.0); Sodium 136 mmol/L (137-145); Transferrin 182 mg/dL (206-381)
[2021-08-07 09:54] LABS: Iron 150 ug/dL (49-181)
[2021-08-07 10:03] LABS: Percent Iron Saturation 53 % (20-50)
--- NOTE | 2021-08-07 10:28 | PM.IMPN ---
Progress Note: A&P Assessment and Plan (1) Acute blood loss anemia: Code(s): D62 - Acute posthemorrhagic anemia Status: Acute Assessment and Plan: Patient is a 81-year-old man with a history of atrial fibrillation on warfarin, CAD, COPD, end-stage renal disease on peritoneal dialysis, hypertension, who presented to the emergency room with generalized weakness, fatigue, 3 syncopal episodes at home over the last few days. Patient states on July 30 he blew his nose and began having a nose bleed. He came to the emergency room and they placed a rhino rocket and had him follow-up with the ENT doctor Dr. Cortés. Patient went to his office on August 01 and had the rhino rocket removed but then he began having more epistaxis and needed to have another rhino rocket replaced. He initially checked his INR which was within normal range, but then was found to have an elevated INR at 8.7 on outpatient labs on 08/05/2021. His last dose of warfarin was Thursday evening he has not had another dose since then. Denies any changes to his diet recently. Initial vitals showed low normal blood pressure at 98/43, heart rate 73 beats per minute, afebrile, normal oxygenation on room air. Initial labs showed normal white blood cell count, macrocytic anemia with a hemoglobin of 7.3, hematocrit 22%, MCV 100.5. INR on arrival was 7.6. Slight hyponatremia at 135. Creatinine 11.2, BUN 118. COVID PCR was negative. Patient was admitted into the hospital with further monitoring of his H&H, monitoring of his epistaxis with a consult to ENT, consult to Nephrology for his peritoneal dialysis treatments. Patient was found to have a supratherapeutic INR was given vitamin K 10 mg subQ by the admitting provider. Patient's repeat H&H was found to be severely low with a hemoglobin of 5.8, hematocrit 18%. He was given 2 units of PRBCs and we are pending a repeat H&H after transfusions. Patient states he is not having any more active bleeding at this time. Appreciate ENT consultation. Patient states she was supposed to have procedure done on Thursday outpatient to stop his epistaxis which will most likely be done in the hospital. We will see ENT says. I talked to the director of dietary about the patient's hemoglobin levels and he agreed to giving 2 units of PRBCs at this time and he will continue with peritoneal dialysis tonight. Will also monitor his INR and if it is greater than 5 and he is still having epistaxis then will consider giving FFP at that time. Pending recheck of INR after his transfusions. Continue monitoring. Transfuse if less 7. Appreciate ENT and Nephrology input. (2) Syncope: Code(s): R55 - Syncope and collapse Status: Acute Assessment and Plan: Likely secondary to hypovolemia secondary to acute blood loss Continue close monitoring of his blood pressure with transfusions and symptoms with walking around. Bed rest until his H&H is stable. I do not feel like further workup is needed at this time for syncope since we have a source with acute anemia. Continue monitoring. (3) Right-sided epistaxis: Code(s): R04.0 - Epistaxis Status: Acute Assessment and Plan: Rhino et in place ENT has been consulted Continue to monitor (4) Chronic anticoagulation: Code(s): Z79.01 - senior care (current) use of anticoagulants Status: Acute Assessment and Plan: Holding warfarin. Last dose was Thursday evening. He was given vitamin K 10 mg this morning. Repeat PT INR after transfusions. (5) Coronary artery disease: Code(s): I25.10 - Atherosclerotic heart disease of [place] coronary artery without angina pectoris Status: Acute Assessment and Plan: Chest pain-free Continue to monitor
[2021-08-07 10:50] LABS: Folic Acid > 20.0 ng/mL (2.76->20); Thyroid Stimulating Hormone Reflex 0.685 uIU/mL (0.465-4.68)
[2021-08-07] MEDS: FAMOTIDINE 20 MG/2 ML VIAL IV PUSH (11:09)
[2021-08-07 11:17] LABS: Blood Urea Nitrogen 133 mg/dL (9-20)
--- NOTE | 2021-08-07 13:11 | WPDCN ---
Assessment and Plan Assessment and plan (1) Epistaxis: Code(s): R04.0 - Epistaxis Status: Acute Assessment and Plan: please hold anticoagulation. Make sure hemoglobin stays at an appropriate level. Once INR in a in an acceptable range in hemoglobin stable and patient has no clinical evidence of bleeding okay to discharge from ENT standpoint as the patient was somewhat hesitant to have surgery. If the patient is still here Thursday a.m. I will see personally. If the patient is still here Thursday a.m. please make NPO midnight just in case the patient requires surgery Thursday. If the patient bleeds acutely I would inflate -the rhino rocket as it is not necessarily inflated. If this is confusing please call with any questions- (2) Right-sided epistaxis: Code(s): R04.0 - Epistaxis Status: Acute HPI Data of Consult Date/Time: 08/07/21 13:11 Requesting Physician: Nany Zambrano PA-C Primary Care Provider: Margarito Cao DO Consult Narrative Narrative: Hu Jasmine is a 81 year old male With a history of anticoagulation. Patient admitted with epistaxis following placement of rhino rocket by myself. INR 7.5 hemoglobin in the 5s. Patient currently receiving blood no longer bleeding. [facility] Past Medical History Medical History Arthritis Asthma Atrial fibrillation Bradycardia CAD in [place] artery Colon cancer screening COPD (chronic obstructive pulmonary disease) Coronary artery disease Erythropoietin deficiency anemia ESRD on peritoneal dialysis (~05/2021) Catheter recently removed for infection Fluid overload, unspecified (~05/2021) Gout Hyperlipidemia Hypertension Kidney disease Mixed hyperlipidemia PHONG on CPAP Peritonitis associated with peritoneal dialysis Prediabetes Renal osteodystrophy Right ear impacted cerumen Rosacea URI, acute Surgical History Surgical History History of sinus surgery Hx of CABG Family History Family History Sibling Diabetes mellitus Mother Patient's mother is Hypertension Family history of coronary artery disease Father Family history of coronary artery disease Social History Social History Smoking packs per day: 0.5 Smoking cigarettes per day: 10.0 Years smoked: 3 Smoking pack-years: 1.50 Smoking status: Former smoker Second hand tobacco smoke exposure: No Alcohol intake: current Drinks per week: 2 Alcohol use details: 4 Substance use: never Substance use type: does not use Spiritual care concerns: No Meds Home Medications and Allergies Home Medications Medication Instructions Recorded Confirmed Type sevelamer carbonate 1,600 mg PO TIDWM 05/08/21 08/07/21 History simvastatin 80 mg PO DAILY 05/08/21 08/07/21 History Shawna-Colton 1 tablet PO DAILY 05/09/21 08/07/21 History cholecalciferol (vitamin D3) 50 mcg PO DAILY 05/09/21 08/07/21 History [Vitamin D3] furosemide 80 mg PO BID 05/09/21 08/07/21 History Lacto.acidophilus-Bif.animalis 1 tablet PO DAILY 05/11/21 08/07/21 History polyethylene glycol 3350 [Miralax] 17 g PO DAILY 05/11/21 08/07/21 History Allergies Allergy/AdvReac Type Severity Reaction Status Date / Time prednisone AdvReac Irritable Verified 08/05/21 13:52 Vital Signs Vital Signs - 24 hr 08/06/21 16:42 08/06/21 19:21 08/06/21 19:27 Temperature 36.7 C Pulse Rate 73 75 76 Respiratory Rate 18 18 Blood Pressure 98/43 L 133/69 138/71 Pulse Oximetry 100 100 08/06/21 19:29 08/06/21 19:31 08/06/21 19:34 Temperature Pulse Rate 76 73 75 Respiratory Rate Blood Pressure 137/56 L 117/53 L Pulse Oximetry 08/06/21 20:31 08/06/21 20:46 08/06/21 21:01 Temperature Pulse Rate 73 75 78 Respiratory Rate 19 15 17 Blood Pressure 1
--- NOTE | 2021-08-07 14:46 | PM.CNNEP ---
Assessment and Plan Assessment and plan (1) Acute blood loss anemia: Code(s): D62 - Acute posthemorrhagic anemia Status: Acute Assessment and Plan: The patient has significant blood loss anemia. Most likely all from the nose. It is hard to tease out whether not he might also have some GI bleeding. Because he was swallowing the blood and so he has some black stools. At this point he has a rhino rocket and so that particular source of bleeding has been taking care of. He was given some vitamin K and will be given some FFP to reverse the INR. He is being given 2units of blood to bring his hemoglobin back up. (2) Syncope: Code(s): R55 - Syncope and collapse Status: Acute Assessment and Plan: The patient had syncope x3. This is most likely due to the anemia. (3) ESRD on peritoneal dialysis: Onset Date: ~05/2021 Code(s): N18.6 - End stage renal disease; Z99.2 - Dependence on renal dialysis Status: Acute Assessment and Plan: If patient was on hemodialysis for a while but then in the last week and half for so he was switched over to peritoneal dialysis. He has been doing well with this. (4) Renal osteodystrophy: Code(s): N25.0 - Renal osteodystrophy Status: Chronic Assessment and Plan: Will check a phosphorus in the morning (5) Erythropoietin deficiency anemia: Code(s): D63.1 - Anemia in chronic kidney disease Status: Chronic Assessment and Plan: will give him some Epogen. 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 - Primary central sleep apnea Status: Chronic Assessment and Plan: He does not use the CPAP mask (7) Hypertension: Code(s): I10 - Essential (primary) hypertension Status: Chronic Assessment and Plan: his blood pressure is under good control (8) Coronary artery disease: Code(s): I25.10 - Atherosclerotic heart disease of [place] coronary artery without angina pectoris Status: Acute Assessment and Plan: he is not having any chest pain History of Present Illness Reason for Consult Consult date: 08/07/21 Chief Complaint Chief complaint: Syncope,Anemia,CRF, Epistaxis History of Present Illness Narrative: Hu is a very pleasant 81-year-old gentleman who has multiple medical problems including end-stage renal disease on peritoneal dialysis, atrial fibrillation on warfarin, coronary artery disease, COPD, sleep apnea on CPAP, gout, hypertension, history of peritonitis related to the peritoneal dialysis, renal osteodystrophy, anemia of chronic kidney disease. the patient says that a few days ago he started bleeding from his nose. He also became dizzy when standing and actually fell 3 times.This got worsen were so he had an INR checked as an outpatient in was and it was 7. He came to the ER. They found him to be very anemic. He was admitted and transfused. He was given vitamin K. He is going to get FFP as well. A rhino rocket was placed in his nose yesterday in the evening in the emergency room. The patient feels better today but he still weak and tired. He did get very much sleep last night. He has not been eating very well in the last few days since he has been bleeding. Before the bleeding he had been eating well. He was not taking any [id number] medications. Is not changed his prescription medications. He has not received any antibiotics. Review of Systems Constitutional: Constitutional: Reports no additional constitutional complaints Eyes: Eyes: Reports no additional eye complaints ENT: Reports system reviewed and no additional complaints, except as documented Cardiovascular: Cardiovascular: Reports no additional cardiovascular complaints Respiratory: Respiratory: Reports no additional respiratory complaints Gastrointestinal: Gastrointestinal: Reports no additional gastrointestinal complaints Ge
--- NOTE | 2021-08-07 14:57 | PM.EVENT ---
Event Note Event Note Event Note: patient is on dialysis and tolerating well. He was seen at 12:30 p.m..
[2021-08-07 16:30] LABS: Hematocrit 25.7 % (42.0-52.0); Hemoglobin 8.6 g/dL (14.0-18.0)
[2021-08-07 17:14] LABS: INR 3.1; Prothrombin Time 30.7 Seconds (11.1-14.7)
[2021-08-07 17:23] LABS: Iron 116 ug/dL (49-181)
[2021-08-07] MEDS: EPOETIN ALFA-EPBX 10,000 UNITS/ML VIAL 10000 UNITS SUB-Q (17:23)
[2021-08-07 17:26] LABS: Percent Iron Saturation 41 % (20-50)
[2021-08-07] MEDS: LACTATED RINGERS 1,000 ML 50 ML IV CONT (17:41)
[2021-08-07] MEDS: PANTOPRAZOLE SODIUM IV 40 MG VIAL IV PUSH (20:11)
[2021-08-07] MEDS: FLUTICASONE/SALMETEROL 115-21 MCG INHALER 1 PUFF 2 PUFF INHALATION (20:49)
[2021-08-08] VITALS (11 sets, daily range): BP systolic 134–163; BP diastolic 57–77; PULSE 56–74; RESP 16–18; TEMP 36.2–36.7; O2SAT 97–100
[2021-08-08 06:22] LABS: Hematocrit 22.7 % (42.0-52.0); Hemoglobin 7.7 g/dL (14.0-18.0); Mean Corpuscular HGB Conc 33.9 g/dl (32-36); Mean Corpuscular Hemoglobin 30.9 pg (26-34); Mean Corpuscular Volume 91.2 fl (80-100); Mean Platelet Volume 10.2 fl (7.4-10.4); Platelet Count Result 105 k/mm3 (150-375); Red Blood Count 2.49 M/mm3 (4.6-6.20); Red Cell Distribution Width 17.4 % (11.5-14.5); White Blood Count 7.7 K/mm3 (4.5-10.0)
[2021-08-08 06:34] LABS: INR 1.8; Prothrombin Time 20.2 Seconds (11.1-14.7)
[2021-08-08 06:50] LABS: Albumin Level 3.2 g/dL (3.5-5.1); Anion Gap 12 mmol/L (8-16); Calcium 9.3 mg/dL (8.4-10.2); Carbon Dioxide 21 mmol/L (22-30); Chloride 100 mmol/L (98-107); Estimated CRCL calculation 5 ml/min; Estimated Glomerular Filt Rate 4; Glucose 104 mg/dL (65-110); Phosphorus 4.9 mg/dL (2.5-4.5); Potassium 3.7 mmol/L (3.4-5.0); Sodium 133 mmol/L (137-145)
[2021-08-08 07:29] LABS: Blood Urea Nitrogen 132 mg/dL (9-20)
--- NOTE | 2021-08-08 08:17 | PM.PNNEP ---
Progress Note: A&P Assessment and Plan (1) Acute blood loss anemia: Code(s): D62 - Acute posthemorrhagic anemia Status: Acute Assessment and Plan: The patient has significant blood loss anemia. Most likely all from the nose. It is hard to tease out whether not he might also have some GI bleeding. Because he was swallowing the blood and so he has some black stools. Still has the rhino rocket. ENT on the case. Hemoglobin is up to 7.7. TSAT is good. (2) Syncope: Code(s): R55 - Syncope and collapse Status: Acute Assessment and Plan: The patient had syncope x3. This is most likely due to the anemia. (3) ESRD on peritoneal dialysis: Onset Date: ~05/2021 Code(s): N18.6 - End stage renal disease; Z99.2 - Dependence on renal dialysis Status: Acute Assessment and Plan: The patient was supposed to get peritoneal dialysis last night but the nurse could not get out of her driveway because of the snowstorm. She will come this morning and set him up today and also do it tonight. (4) Renal osteodystrophy: Code(s): N25.0 - Renal osteodystrophy Status: Chronic Assessment and Plan: Phosphorus doing well (5) Erythropoietin deficiency anemia: Code(s): D63.1 - Anemia in chronic kidney disease Status: Chronic Assessment and Plan: will give him some Epogen. 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 He feels better now. He is eating and has received blood transfusions. Hemoglobin is up to 7.7. Review of Systems Cardiovascular: Cardiovascular: Reports no additional cardiovascular complaints Respiratory: Respiratory: Reports no additional respiratory complaints Gastrointestinal: Gastrointestinal: Reports no additional gastrointestinal complaints Genitourinary: Genitourinary: Reports no additional male genitourinary complaints Exam Narrative: WDWN in NAD skin no rash head ncat lungs clear cor reg no rub abd BS+ nontender and soft ext no edema. Objective Data Vital Signs Vital Signs: Vital Signs - 24 hr 08/07/21 09:11 08/07/21 09:28 08/07/21 10:28 Temperature 36.4 C 36.6 C 36.6 C Pulse Rate 80 77 83 Respiratory Rate 18 16 18 Blood Pressure 135/72 122/62 128/66 Pulse Oximetry 97 98 98 08/07/21 11:24 08/07/21 11:35 08/07/21 11:52 Temperature 36.7 C 37.1 C 36.8 C Pulse Rate 75 77 89 Respiratory Rate 18 20 20 Blood Pressure 122/59 L 135/68 140/65 Pulse Oximetry 98 97 99 08/07/21 12:00 08/07/21 12:52 08/07/21 13:46 Temperature 36.7 C 36.1 C L Pulse Rate 77 80 66 Respiratory Rate 18 20 Blood Pressure 132/76 133/67 Pulse Oximetry 99 100 08/07/21 13:52 08/07/21 15:10 08/07/21 18:00 Temperature 36.1 C L 36.6 C Pulse Rate 66 69 69 Respiratory Rate 20 20 Blood Pressure 133/67 138/67 Pulse Oximetry 100 100 08/07/21 20:00 08/07/21 20:53 08/07/21 22:00 Temperature 37.3 C Pulse Rate 65 60 61 Respiratory Rate 20 Blood Pressure 130/63 Pulse Oximetry 100 08/08/21 00:00 08/08/21 04:00 08/08/21 06:00 Temperature 36.7 C Pulse Rate 71 68 66 Respiratory Rate 16 Blood Pressure 145/74 H Pulse Oximetry 100 Intake/Output Intake/Output: Intake & Output 08/05/21 08/06/21 08/07/21 08/08/21 23:59 23:59 23:59 23:59 Intake Total 2460 600 Output Total 700 500
[2021-08-08] MEDS: SIMVASTATIN 20 MG TABLET 80 MG PO (08:37)
[2021-08-08] MEDS: ACIDOPHILUS/BULGARICUS CHEWABLE TABLET 1 TABLET PO (08:37)
[2021-08-08] MEDS: CHOLECALCIFEROL 1,000 UNITS TABLET 2000 UNITS PO (08:37)
[2021-08-08] MEDS: VITAMIN B CMPLX/VIT C/FOLIC AC 1 CAPSULE 1 CAP PO (08:37)
[2021-08-08] MEDS: PANTOPRAZOLE SODIUM IV 40 MG VIAL IV PUSH ×2 (08:38→19:59)
[2021-08-08] MEDS: SEVELAMER CARBONATE 800 MG TABLET 1600 MG PO ×3 (08:38→16:23)
[2021-08-08] MEDS: polyethylene glycoL 3350 17 GM POWD.PACK PO (08:38)
[2021-08-08] MEDS: FLUTICASONE/SALMETEROL 115-21 MCG INHALER 1 PUFF 2 PUFF INHALATION ×2 (10:00→22:02)
[2021-08-08 11:43] LABS: Hemoglobin 8.1 g/dL (14.0-18.0)
--- NOTE | 2021-08-08 12:23 | PM.IMPN ---
Progress Note: A&P Assessment and Plan (1) Acute blood loss anemia: Code(s): D62 - Acute posthemorrhagic anemia Status: Acute Assessment and Plan: Patient is a 81-year-old man with a history of atrial fibrillation on warfarin, CAD, COPD, end-stage renal disease on peritoneal dialysis, hypertension, who presented to the emergency room with generalized weakness, fatigue, 3 syncopal episodes at home over the last few days. Patient states on July 30 he blew his nose and began having a nose bleed. He came to the emergency room and they placed a rhino rocket and had him follow-up with the ENT doctor Dr. Cortés. Patient went to his office on August 01 and had the rhino rocket removed but then he began having more epistaxis and needed to have another rhino rocket replaced. He initially checked his INR which was within normal range, but then was found to have an elevated INR at 8.7 on outpatient labs on 08/05/2021. His last dose of warfarin was Thursday evening he has not had another dose since then. Denies any changes to his diet recently. Initial vitals showed low normal blood pressure at 98/43, heart rate 73 beats per minute, afebrile, normal oxygenation on room air. Initial labs showed normal white blood cell count, macrocytic anemia with a hemoglobin of 7.3, hematocrit 22%, MCV 100.5. INR on arrival was 7.6. Slight hyponatremia at 135. Creatinine 11.2, BUN 118. COVID PCR was negative. Patient was admitted into the hospital with further monitoring of his H&H, monitoring of his epistaxis with a consult to ENT, consult to Nephrology for his peritoneal dialysis treatments. Patient was found to have a supratherapeutic INR was given vitamin K 10 mg subQ by the admitting provider. Patient's repeat H&H was found to be severely low with a hemoglobin of 5.8, hematocrit 18%. He was given 2 units of PRBCs Repeat H&H after transfusions 8.6/25.7%. This morning H&H was 7.7/22%, but repeat this after noon was better at 8.1/24%. Patient states he is not having any more significant bleeding at this time, just oozing. Appreciate ENT consultation who will most likely take him to the OR tomorrow for further treatment and cauderization if he continues to have issues bleeding. Continue monitoring. Transfuse if less 7. Appreciate ENT and Nephrology input. (2) Supratherapeutic INR: Code(s): R79.1 - Abnormal coagulation profile Status: Acute Assessment and Plan: INR on arrival was 8.7. He was given Vit K with improvement of INR today to 1.8. He is still having some bleeding today so I will not give any Lovenox for anticoagulation given his history. Will also monitor his INR (3) Syncope: Code(s): R55 - Syncope and collapse Status: Acute Assessment and Plan: Likely secondary to hypovolemia secondary to acute blood loss Feeling better after transfusions. I do not feel like further workup is needed at this time for syncope since we have a source with acute anemia. He can walk with assistance with stable vitals and labs Continue monitoring. (4) Right-sided epistaxis: Code(s): R04.0 - Epistaxis Status: Acute Assessment and Plan: Rhino rocket in place and oozing blood around it. Talked to ENT- will make sure Rhino rocket is tight for the next 24 hours. If it is not holding pressure a new one will need to be placed. ENT will place NPO after midnight and consider OR procedure if there are still issues. Continue to monitor. Appreciate ENT input. (5) Chronic anticoagulation: Code(s): Z79.01 - [facility]PC (current) use of anticoagulants Status: Acute Assessment and Plan: Holding warfarin. Last dose was Thursday evening. He was given vitamin K 10 mg for supratherpeutic INR Pt is
[2021-08-08] MEDS: ACETAMINOPHEN 325 MG TABLET 650 MG PO (16:23)
[2021-08-08] MEDS: FUROSEMIDE 80 MG TABLET PO (16:23)
[2021-08-08 21:18] LABS: Hematocrit 21.8 % (42.0-52.0); Hemoglobin 7.3 g/dL (14.0-18.0)
[2021-08-09] VITALS (17 sets, daily range): BP systolic 86–158; BP diastolic 55–79; PULSE 50–92; RESP 14–33; TEMP 35.6–37.1; O2SAT 73–100
[2021-08-09] MEDS: ACETAMINOPHEN 325 MG TABLET 650 MG PO (00:23)
[2021-08-09 06:26] LABS: Hematocrit 23.8 % (42.0-52.0); Hemoglobin 7.9 g/dL (14.0-18.0); Mean Corpuscular HGB Conc 33.2 g/dl (32-36); Mean Corpuscular Hemoglobin 30.6 pg (26-34); Mean Corpuscular Volume 92.2 fl (80-100); Mean Platelet Volume 10.9 fl (7.4-10.4); Platelet Count Result 131 k/mm3 (150-375); Red Blood Count 2.58 M/mm3 (4.6-6.20); Red Cell Distribution Width 16.2 % (11.5-14.5); White Blood Count 9.2 K/mm3 (4.5-10.0)
[2021-08-09 06:36] LABS: INR 1.2; Prothrombin Time 15.4 Seconds (11.1-14.7)
[2021-08-09 06:49] LABS: Albumin Level 3.7 g/dL (3.5-5.1); Anion Gap 13 mmol/L (8-16); Calcium 9.6 mg/dL (8.4-10.2); Carbon Dioxide 21 mmol/L (22-30); Chloride 100 mmol/L (98-107); Estimated CRCL calculation 5 ml/min; Estimated Glomerular Filt Rate 4; Glucose 120 mg/dL (65-110); Potassium 3.9 mmol/L (3.4-5.0); Sodium 134 mmol/L (137-145)
[2021-08-09 06:55] LABS: Blood Urea Nitrogen 130 mg/dL (9-20)
[2021-08-09] MEDS: FLUTICASONE/SALMETEROL 115-21 MCG INHALER 1 PUFF 2 PUFF INHALATION (08:19)
--- NOTE | 2021-08-09 08:40 | WPDANESEPP ---
Anes - Eval Pre Procedure Procedure: Operation Date: 08/09/21 11:30 Proposed Procedures p Bilateral Nasal Cautery, - Yasir Cortés MD s Right Maxillary Antrostomy, Nasal Endoscopy, Right Sphenoid Artery Ligation - Yasir Cortés MD Date/Time: 08/09/21 08:40 Pre Op Diagnosis: Syncope,Anemia,CRF, Epistaxis Patient Data Age: 81 Gender: M Height: 1.78 m Weight: 86 kg Last Vital Signs Temp 36.4 C 08/09/21 06:00 Pulse 73 08/09/21 06:00 Resp 20 08/09/21 06:00 BP 121/56 L 08/09/21 06:00 Pulse Ox 98 08/09/21 06:00 Allergies Allergy/AdvReac Type Severity Reaction Status Date / Time prednisone AdvReac Irritable Verified 08/05/21 13:52 Home Medications Medication Instructions Recorded Confirmed Type sevelamer carbonate 1,600 mg PO TIDWM 05/08/21 08/07/21 History simvastatin 80 mg PO DAILY 05/08/21 08/07/21 History Shawna-Colton 1 tablet PO DAILY 05/09/21 08/07/21 History cholecalciferol (vitamin D3) 50 mcg PO DAILY 05/09/21 08/07/21 History [Vitamin D3] furosemide 80 mg PO BID 05/09/21 08/07/21 History Lacto.acidophilus-Bif.animalis 1 tablet PO DAILY 05/11/21 08/07/21 History polyethylene glycol 3350 [Miralax] 17 g PO DAILY 05/11/21 08/07/21 History Laboratory Tests 08/08/21 08/08/21 08/09/21 11:32 21:13 06:16 WBC RBC Hgb 8.1 g/dL L g/dL 7.3 g/dL L g/dL (14.0-18.0) (14.0-18.0) Hct 24.0 % L % 21.8 % L % (42.0-52.0) (42.0-52.0) MCV MCH MCHC RDW Plt Count MPV PT 15.4 Seconds H D Seconds (11.1-14.7) INR 1.2 Sodium Potassium Chloride Carbon Dioxide Anion Gap BUN Creatinine Estim Creat Clear Calc Estimated GFR Glucose Calcium Phosphorus Albumin 08/09/21 08/09/21 06:16 06:21 WBC 9.2 K/mm3 K/mm3 (4.5-10.0) RBC 2.58 M/mm3 L M/mm3 (4.6-6.20) Hgb 7.9 g/dL L g/dL (14.0-18.0) Hct 23.8 % L % (42.0-52.0) MCV 92.2 fl fl (80-100) MCH 30.6 pg pg (26-34) MCHC 33.2 g/dl g/dl (32-36) RDW 16.2 % H % (11.5-14.5) Plt Count 131 k/mm3 L k/mm3 (150-375) MPV 10.9 fl H fl (7.4-10.4) PT INR Sodium 134 mmol/L L mmol/L (137-145) Potassium 3.9 mmol/L mmol/L (3.4-5.0) Chloride 100 mmol/L mmol/L (98-107) Carbon Dioxide 21 mmol/L L mmol/L (22-30) Anion Gap 13 mmol/L mmol/L (8-16) BUN 130 mg/dL H mg/dL (9-20) Creatinine 12.00 mg/dL H mg/dL (0.7-1.3) Estim Creat Clear Calc 5 ml/min ml/min Estimated GFR 4 L (59 - ) Glucose 120 mg/dL H mg/dL (65-110) Calcium 9.6 mg/dL mg/dL (8.4-10.2) Phosphorus 5.0 mg/dL H mg/dL (2.5-4.5) Albumin 3.7 g/dL g/dL (3.5-5.1) Patient hx anesthesia problems: none Family hx anesthesia problems: none Results Review: All pre-operative results and documents have been reviewed as part of the pre-operative evaluation. [facility] Past Medical History Medical History Arthritis Asthma Atrial fibrillation Bradycardia CAD in [place] artery Colon cancer screening COPD (chronic obstructive pulmonary disease) Coronary artery disease Erythropoietin deficiency anemia ESRD on peritoneal dialysis (~05/2021) Catheter recently removed for infection Fluid overload, unspecified (~05/2021) Gout Hyperlipidemia Hypertension Kidney disease Mixed hyperlipidemia PHONG on CPAP Peritonitis associated with peritoneal dialysis Prediabetes Renal osteodystrophy Right ear impacted cerumen Rosacea URI, acute Surgical History Surgical History History of sinus surgery Hx of CABG Fa
[2021-08-09] MEDS: PANTOPRAZOLE SODIUM IV 40 MG VIAL IV PUSH (08:42)
--- NOTE | 2021-08-09 08:47 | PM.PNGS ---
Progress Note: A&P Assessment and Plan (1) Epistaxis: Code(s): R04.0 - Epistaxis Status: Acute Assessment and Plan: plan is for the operating room for nasal endoscopy bilaterally right-sided maxillary antrostomy endoscopically and right-sided endoscopic sphenopalatine artery ligation. I please see H&P for risks discussed. Please keep patient NPO. (2) Right-sided epistaxis: Code(s): R04.0 - Epistaxis Status: Acute Subjective Subjective Date/Time Seen: 08/09/21 08:47 He hemoglobin 7.9 it has fluctuated between 5 and 8 patient received 2 units INR relatively normal at 1.2 down from 1.8 down from 8.9. Patient still oozing with rhino rocket placed patient has been bleeding for approximately all week with a rhino rocket in place although the the amount of air in the rhino rocket has been questionable. Patient interested in definitive intervention. Exam HENMT: Other: Scant blood around rhino rocket scant blood back of throat Objective Data Vital Signs Vital Signs: Vital Signs - 24 hr 08/08/21 09:01 08/08/21 09:02 08/08/21 12:00 Temperature Pulse Rate 64 Respiratory Rate Blood Pressure 152/72 H 138/58 L Pulse Oximetry 08/08/21 13:37 08/08/21 16:00 08/08/21 20:00 Temperature 36.3 C L Pulse Rate 63 56 L 58 L Respiratory Rate 18 Blood Pressure 163/77 H Pulse Oximetry 100 08/08/21 21:58 08/09/21 00:00 08/09/21 04:00 Temperature 36.2 C L Pulse Rate 59 L 64 66 Respiratory Rate 16 Blood Pressure 148/57 H Pulse Oximetry 97 08/09/21 06:00 Temperature 36.4 C Pulse Rate 73 Respiratory Rate 20 Blood Pressure 121/56 L Pulse Oximetry 98 Intake/Output Intake/Output: Intake & Output 08/06/21 08/07/21 08/08/21 08/09/21 23:59 23:59 23:59 23:59 Intake Total 2460 2560 300 Output Total 700 600 Balance 1760 1960 300 Meds/Results Medications: Active Medications Generic Name Dose Route Start Last Admin Trade Name Freq PRN Reason Stop Dose Admin Acetaminophen 650 mg 08/06/21 20:57 08/09/21 00:23 Acetaminophen 325 Mg Tablet PO 650 mg Q4H PRN Administration Mild Pain (1-3) or Fever Epoetin Antwon-epbx 10,000 units 08/07/21 15:04 08/07/21 17:23 Epoetin Antwon-Epbx 10,000 Units/Ml Vial SUB-Q 10,000 units MOWEFR [facility] Administration Furosemide 80 mg 08/08/21 17:00 08/09/21 08:41 Furosemide 80 Mg Tablet PO Not Given BID [facility] Sodium Chloride 500 mls @ 30 mls/hr 08/09/21 08:45 Normal Saline Iv IV CONT .[id number] [facility] Lactobacillus Acidophilus 1 tablet 08/07/21 09:00 08/09/21 08:36 Acidophilus/Bulgaricus Chewable Tablet PO Not Given DAILY [facility] Ondansetron HCl 4 mg 08/06/21 20:57 Ondansetron Inj 4 Mg/2 Ml Vial IV PUSH Q4H PRN Nausea Pantoprazole Sodium 40 mg 08/07/21 21:00 08/09/21 08:42 Pantoprazole Sodium Iv 40 Mg Vial IV PUSH 40 mg Q12HR [facility] Administration Polyethylene Glycol 17 gm 08/07/21 09:00 08/09/21 08:37 Polyethylene Glycol 3350 17 Gm Powd.Pack PO Not Given DAILY [facility] Fluticasone/Salmeterol 2 puff 08/07/21 20:30 08/09/21 08:19 Fluticasone/Salmeterol 115-21 Mcg Inhaler 1 Puff INHALATION 2 puff Q12HRT [facility] Administration Sevelamer Carbonate 1,600 mg 08/07/21 08:00 08/09/21 08:36 Sevelamer Carbonate 800 Mg Tablet PO Not Given TIDWM [facility] Simvastatin 80 mg 08/07/21 09:00 08/09/21 08:37 Simvastatin 20 Mg Tablet PO Not Given DAILY [facility] Vitamin B Complex/Folic Acid 1 cap 08/07/21 09:00 08/09/21 08:37 Vitamin B Cmplx/Vit C/Folic Ac 1 Capsule PO Not Given DAILY [facility] Vitamin D 2,000 units 08/07/21 09:00 08/09/21 08:36 Cholecalciferol 1,000 Units Tablet PO Not Given DAILY [facility] Labs Labs: Laboratory Results - last 24 hr 08/08/21 08/08/2122 11:32 21:13 06:16 WBC RBC Hgb 8.1 L 7.3 L Hct 24.0 L 21.8 L MCV MCH MCHC RDW Plt Count MPV PT 15.4 H D
--- NOTE | 2021-08-09 08:50 | PM.IMHP ---
H&P: HPI History of Present Illness Date/Time: 08/09/21 08:50 Chief Complaint: I right-sided epistaxis Narrative: patient presents for planned surgical well as somewhat planned surgical procedure. No change in symptoms no change in medical history. [facility] Past Medical History Medical History Arthritis Asthma Atrial fibrillation Bradycardia CAD in [place] artery Colon cancer screening COPD (chronic obstructive pulmonary disease) Coronary artery disease Erythropoietin deficiency anemia ESRD on peritoneal dialysis (~05/2021) Catheter recently removed for infection Fluid overload, unspecified (~05/2021) Gout Hyperlipidemia Hypertension Kidney disease Mixed hyperlipidemia PHONG on CPAP Peritonitis associated with peritoneal dialysis Prediabetes Renal osteodystrophy Right ear impacted cerumen Rosacea URI, acute Surgical History Surgical History History of sinus surgery Hx of CABG Family History Family History Sibling Diabetes mellitus Mother Patient's mother is Hypertension Family history of coronary artery disease Father Family history of coronary artery disease Social History Social History Smoking packs per day: 0.5 Smoking cigarettes per day: 10.0 Years smoked: 3 Smoking pack-years: 1.50 Smoking status: Former smoker Second hand tobacco smoke exposure: No Alcohol intake: current Drinks per week: 2 Alcohol use details: 4 Substance use: never Substance use type: does not use Spiritual care concerns: No Meds Home Medications and Allergies Home Medications Medication Instructions Recorded Confirmed Type sevelamer carbonate 1,600 mg PO TIDWM 05/08/21 08/07/21 History simvastatin 80 mg PO DAILY 05/08/21 08/07/21 History Shawna-Colton 1 tablet PO DAILY 05/09/21 08/07/21 History cholecalciferol (vitamin D3) 50 mcg PO DAILY 05/09/21 08/07/21 History [Vitamin D3] furosemide 80 mg PO BID 05/09/21 08/07/21 History Lacto.acidophilus-Bif.animalis 1 tablet PO DAILY 05/11/21 08/07/21 History polyethylene glycol 3350 [Miralax] 17 g PO DAILY 05/11/21 08/07/21 History Allergies Allergy/AdvReac Type Severity Reaction Status Date / Time prednisone AdvReac Irritable Verified 08/05/21 13:52 Vital Signs Vital Signs - 24 hr 08/08/21 09:01 08/08/21 09:02 08/08/21 12:00 Temperature Pulse Rate 64 Respiratory Rate Blood Pressure 152/72 H 138/58 L Pulse Oximetry 08/08/21 13:37 08/08/21 16:00 08/08/21 20:00 Temperature 36.3 C L Pulse Rate 63 56 L 58 L Respiratory Rate 18 Blood Pressure 163/77 H Pulse Oximetry 100 08/08/21 21:58 08/09/21 00:00 08/09/21 04:00 Temperature 36.2 C L Pulse Rate 59 L 64 66 Respiratory Rate 16 Blood Pressure 148/57 H Pulse Oximetry 97 08/09/21 06:00 Temperature 36.4 C Pulse Rate 73 Respiratory Rate 20 Blood Pressure 121/56 L Pulse Oximetry 98 Exam HENMT: Other: Right-sided scant bleeding or pharyngeal scant bleeding rhino rocket in place H&P: Results Labs Labs: Short CBC 08/08/21 08/08/21 08/09/21 Range/Units 11:32 21:13 06:21 WBC 9.2 (4.5-10.0) K/mm3 Hgb 8.1 L 7.3 L 7.9 L (14.0-18.0) g/dL Hct 24.0 L 21.8 L 23.8 L (42.0-52.0) % Plt Count 131 L (150-375) k/mm3 BMP 08/09/21 06:16 Sodium 134 L Potassium 3.9 Chloride 100 Carbon Dioxide 21 L BUN 130 H Creatinine 12.00 H Glucose 120 H Calcium 9.6 Liver Function 08/09/21 Range/Units 06:16 Albumin 3.7 (3.5-5.1) g/dL Assessment and Plan Assessment and plan (1) Epistaxis: Code(s): R04.0 - Epistaxis Status: Acute Assessment and Plan: plan is for the operating room right-sided endoscopic maxillary antrostomy right-sided endoscop
--- NOTE | 2021-08-09 08:51 | WPDHPUPDATE1 ---
History and Physical Update Update Date/Time: 08/09/21 08:51 History and Physical has been reviewed, including an updated exam of the patient. There are NO changes in the patient's condition. Risks, benefits, and alternatives have been discussed and questions answered. Patient agrees to proceed with procedure.
--- NOTE | 2021-08-09 09:10 | WPDANESEFPP ---
Anes - Eval Final PreProcedure Day of Procedure 08/09/21 09:10 Patient weight: overweight Heart: irregular rhythm Lungs: decreased breath sounds Airway: Mallampati scale class II Neurological: alert and oriented Last oral intake: >/= 8 hours ASA classification: IV Emergent: no Anesthetic plan: proceed Anesthesia type and monitoring: general Results Review: All pre-operative results and documents have been reviewed as part of the pre-operative evaluation. Informed Consent: The patient's anesthetic plan and its attendant risks and benefits were discussed with the patient/family/POA. Questions were solicited and answers provided to the satisfaction of the patient/family/POA.
[2021-08-09] MEDS: OXYMETAZOLINE HCL 0.05% NAS 15 ML BTL (*BKC) 1 SPRAY NASAL (09:13)
[2021-08-09] MEDS: SODIUM CHLORIDE 0.9% IV 500 ML 30 ML IV CONT (09:20)
[2021-08-09] MEDS: ceFAZolin SODIUM 1 GM VIAL 2 GM IV PUSH (09:26)
[2021-08-09 10:30] LABS: Hepatitis B Surface Antigen Negative (Negative)
--- NOTE | 2021-08-09 10:31 | W.PM.PROC2 ---
Procedure Note - Detailed Date of Procedure 08/09/21 Pre-op Diagnosis Syncope,Anemia,CRF, Epistaxis Post-op Diagnosis same Procedure Performed Bilateral nasal endoscopy right-sided middle turbinectomy right-sided maxillary antrostomy right-sided SP a ligation Surgeon Yasir Cortés MD Anesthesia general Indications See above Findings Bleeding from the mid septum as well as possible posterior bleed as rib bright red blood. Description of Procedure Patient identified in preop consent verified. Patient brought back to operating room. Time-out performed. General anesthesia induced. Endotracheal tube secured. Patient prepped and draped for procedure. Second time-out performed. Afrin-soaked pledgets placed in the left side allowed to sit for 5 minutes then removed. Rhino rocket removed. Bleeding noted from the mid septum. Some bright red blood posteriorly as well. Middle turbinate removed stump cauterized with Bovie suction electrocautery. This was done for access. Right maxillary antrostomy performed. Lateral wall followed back to [place] ethmoidalis sphenopalatine artery identified cauterized Bovie suction electrocautery at a setting of 15. Posterior septal artery also cauterized setting of 15. Good blanching noted minimal epistaxis no pack placed in the nasal passage against the operative site also against the septum which was gently cauterized at a setting 5. Acceptable bleeding procedure. Patient tolerated the procedure. There were no complications. Care the patient turned over to Anesthesiology. Total blood loss approximately 5 cc. I performed all dictated portions of the procedure. Estimated Blood Loss -5.0 Urine Output 100 Drains No Packing Yes (Nova pack) Pathology none sent Complications No immediate complications Condition stable Disposition PACU
[2021-08-09 10:35] LABS: Hepatitis B Core IgM Result Negative (Negative)
--- NOTE | 2021-08-09 10:40 | SUR.PHASEI ---
Simple mask removed at 1040.
[2021-08-09 10:47] LABS: Hepatitis B Surface Anti Res Negative
--- NOTE | 2021-08-09 10:48 | SUR.PHASEI ---
Patient desated to 78% on room air so RN reapplied simple mask since patient is a mouth breather and had nasal surgery.
--- NOTE | 2021-08-09 11:16 | SUR.PHASEI ---
Dr. Hendrickson notified of wheezing and coarse lung sounds as well as desating and accessory muscle use. He said no further treatment needed at this time when he came to the bedside and saw the patient.
--- NOTE | 2021-08-09 11:25 | SUR.PHASEI ---
Respiratory called and brought patient's home CPAP to recovery and bled in 5L.
--- NOTE | 2021-08-09 11:39 | PM.PNNEP ---
Progress Note: A&P Assessment and Plan (1) Acute blood loss anemia: Code(s): D62 - Acute posthemorrhagic anemia Status: Acute Assessment and Plan: The patient has significant blood loss anemia. Most likely all from the nose. Status post nasal procedure. ENT on the case. Hemoglobin is up to 7.9. TSAT is good. (2) Syncope: Code(s): R55 - Syncope and collapse Status: Acute Assessment and Plan: The patient had syncope x3. This is most likely due to the anemia. He will need physical therapy (3) ESRD on peritoneal dialysis: Onset Date: ~05/2021 Code(s): N18.6 - End stage renal disease; Z99.2 - Dependence on renal dialysis Status: Acute Assessment and Plan: The patient was supposed to get peritoneal dialysis yesterday but it did not happen. Will do dialysis today and also tonight to get him back on schedule. He still makes urine so on a think fluid is an issue. Potassium is okay. BUN is high because of absorption of blood but also not getting dialysis. (4) Renal osteodystrophy: Code(s): N25.0 - Renal osteodystrophy Status: Chronic Assessment and Plan: Phosphorus doing well (5) Erythropoietin deficiency anemia: Code(s): D63.1 - Anemia in chronic kidney disease Status: Chronic Assessment and Plan: will give him some Epogen. 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 He had his nasal operation for the bleeding. He is due for peritoneal dialysis. Exam Narrative: WDWN in NAD skin no rash or subcu nodules head ncat lungs coarse upper airway noise. He is still sleepy and has central sleep apnea and is not clearing secretions because he is still under the effects of anesthesia. cor reg no rub or gallop abd BS+ nontender and soft ext no edema. Objective Data Vital Signs Vital Signs: Vital Signs - 24 hr 08/08/21 12:00 08/08/21 13:37 08/08/21 16:00 Temperature 36.3 C L Pulse Rate 64 63 56 L Respiratory Rate 18 Blood Pressure 163/77 H Pulse Oximetry 100 08/08/21 20:00 08/08/21 21:58 08/09/21 00:00 Temperature 36.2 C L Pulse Rate 58 L 59 L 64 Respiratory Rate 16 Blood Pressure 148/57 H Pulse Oximetry 97 08/09/21 04:00 08/09/21 06:00 08/09/21 09:18 Temperature 36.4 C 37.1 C Pulse Rate 66 73 64 Respiratory Rate 20 16 Blood Pressure 121/56 L 155/73 H Pulse Oximetry 98 97 08/09/21 10:16 08/09/21 10:30 08/09/21 10:45 Temperature 36.4 C Pulse Rate 50 L 60 62 Respiratory Rate 22 H 19 14 Blood Pressure 116/63 141/70 H 149/75 H Pulse Oximetry 99 100 93 08/09/21 11:00 08/09/21 11:15 08/09/21 11:30 Temperature Pulse Rate 59 L 58 L 58 L Respiratory Rate 18 20 16 Blood Pressure 158/72 H 145/72 H 154/73 H Pulse Oximetry 93 90 98 Intake/Output Intake/Output: Intake & Output 08/06/21 08/07/21 08/08/21 08/09/21 23:59 23:59 23:59 23:59 Intake Total 2460 2560 300 Output Total 700 600 100 Balance 1760 1960 200 Meds/Results Medications: Active Medications Generic Name Dose Route Start Last Admin Trade Name Freq PRN Reason Stop Dose Admin Acetaminophen 650 mg 08/06/21 20:57 08/09/21 00:23 Acetaminophen 325 Mg Tablet PO 650 mg Q4H PRN Administration Mild Pain (1-3) or Fever Epoetin Antwon-epbx 10,000 units 08/07/21 15
--- NOTE | 2021-08-09 13:20 | PM.IMPN ---
Progress Note: A&P Assessment and Plan (1) Acute blood loss anemia: Code(s): D62 - Acute posthemorrhagic anemia Status: Acute Assessment and Plan: Patient is a 81-year-old man with a history of atrial fibrillation on warfarin, CAD, COPD, end-stage renal disease on peritoneal dialysis, hypertension, who presented to the emergency room with generalized weakness, fatigue, 3 syncopal episodes at home over the last few days. Patient states on July 30 he blew his nose and began having a nose bleed. He came to the emergency room and they placed a rhino rocket and had him follow-up with the ENT doctor Dr. Cortés. Patient went to his office on August 01 and had the rhino rocket removed but then he began having more epistaxis and needed to have another rhino rocket replaced. He initially checked his INR which was within normal range, but then was found to have an elevated INR at 8.7 on outpatient labs on 08/05/2021. His last dose of warfarin was Thursday evening he has not had another dose since then. Denies any changes to his diet recently. Initial vitals showed low normal blood pressure at 98/43, heart rate 73 beats per minute, afebrile, normal oxygenation on room air. Initial labs showed normal white blood cell count, macrocytic anemia with a hemoglobin of 7.3, hematocrit 22%, MCV 100.5. INR on arrival was 7.6. Slight hyponatremia at 135. Creatinine 11.2, BUN 118. COVID PCR was negative. Patient was admitted into the hospital with further monitoring of his H&H, monitoring of his epistaxis with a consult to ENT, consult to Nephrology for his peritoneal dialysis treatments. Patient was found to have a supratherapeutic INR was given vitamin K 10 mg subQ by the admitting provider. Patient's repeat H&H was found to be severely low with a hemoglobin of 5.8, hematocrit 18%. He was given 2 units of PRBCs Repeat H&H after transfusions 8.6/25.7%. This afternoon H&H was 8.8/25%. Stable. Appreciate ENT took patient to OR today for Bilateral nasal endoscopy right-sided middle turbinectomy right-sided maxillary antrostomy right-sided SP a ligation He is still sedated at this time, but does not appear to have any bleeding. Continue monitoring. Transfuse if less 7. Appreciate ENT and Nephrology input. (2) Supratherapeutic INR: Code(s): R79.1 - Abnormal coagulation profile Status: Acute Assessment and Plan: INR on arrival was 8.7. He was given Vit K with improvement of INR. Today to 1.2 He is still having some bleeding today so I will not give any Lovenox for anticoagulation given his history. Will also monitor his INR (3) Syncope: Code(s): R55 - Syncope and collapse Status: Acute Assessment and Plan: Likely secondary to hypovolemia secondary to acute blood loss I do not feel like further workup is needed at this time for syncope since we have a source with acute anemia. He can walk with assistance with stable vitals and labs Continue monitoring. (4) Right-sided epistaxis: Code(s): R04.0 - Epistaxis Status: Acute Assessment and Plan: Seems to be resolved after procedure today. Continue to monitor. Appreciate ENT input. 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 INR was elevated. Will restart Coumadin now and closely monitor. (6) Coronary artery disease: Code(s): I25.10 - Atherosclerotic heart disease of [place] coronary artery without angina pectoris Status: Acute Assessment and Plan: Chest pain-free Continue to monitor (7) Atrial
--- NOTE | 2021-08-09 13:32 | PM.DDS ---
Discharge Summary Date and Time Date of : 08/09/21 Time of : 16:30 Provider Pronounced By: Dr. Mora Probable Cause of Probable Cause of : Date of Service 08/09/21: Acute Respiratory failure secondary to cardiac arrest, pulmonary edema, possible aspiration pneumonia, possible hypercarbia from anesthesia and COPD Summary Hospital Course: Patient is a 81-year-old man with a history of atrial fibrillation on warfarin, CAD, COPD, end-stage renal disease on peritoneal dialysis, hypertension, who presented to the emergency room with generalized weakness, fatigue, 3 syncopal episodes at home over the last few days. Patient states on July 30 he blew his nose and began having a nose bleed. He came to the emergency room and they placed a rhino rocket and had him follow-up with the ENT doctor Dr. Cortés. Patient went to his office on August 01 and had the rhino rocket removed but then he began having more epistaxis and needed to have another rhino rocket replaced. He initially checked his INR which was within normal range, but then was found to have an elevated INR at 8.7 on outpatient labs on 08/05/2021. His last dose of warfarin was Thursday evening he has not had another dose since then. Denies any changes to his diet recently. Initial vitals showed low normal blood pressure at 98/43, heart rate 73 beats per minute, afebrile, normal oxygenation on room air. Initial labs showed normal white blood cell count, macrocytic anemia with a hemoglobin of 7.3, hematocrit 22%, MCV 100.5. INR on arrival was 7.6. Slight hyponatremia at 135. Creatinine 11.2, BUN 118. COVID PCR was negative. Patient was admitted into the hospital with further monitoring of his H&H, monitoring of his epistaxis with a consult to ENT, consult to Nephrology for his peritoneal dialysis treatments. Patient was found to have a supratherapeutic INR was given vitamin K 10 mg subQ by the admitting provider. Patient's repeat H&H was found to be severely low with a hemoglobin of 5.8, hematocrit 18%. He was given 2 units of PRBCs Repeat H&H after transfusions 8.6/25.7%. This morning H&H was 7.9/23. Stable. The patient was not given his dialysis since his admission. ENT took patient to the OR today for Bilateral nasal endoscopy right-sided middle turbinectomy right-sided maxillary antrostomy right-sided SP a ligation After the patient returned back from his procedure he was still sedated and on a nonrebreather. The patient was on Tele and went into a cardiac arrest and Code blue was called. Patient was intubated and taken to the ICU While in the ICU and getting further test worked up he coded again and during their code the decided to withdrawal care. Patient was pronounced . Additional Data Confirmation of as documented by pronouncing clinician: Pupillary Reflex, Palpable Pulses, Response to Stimuli, Heart Tones and Breath Sounds Name of Provider Notified: Dr. Muro Time Provider Notified: 16:30 Provider Requests Autopsy: No Family Requests Autopsy: No Chopped Strand Operator Notified: Yes Date [facility] Notified of : 08/09/21 Time [facility] Notified of : 18:52
--- NOTE | 2021-08-09 14:15 | PC.NURSE ---
Patient sanya down on the monitor technician in the 30's, this nurse went in to go check on patient. Patient was hard to arouse rapid response called.
[2021-08-09 14:50] LABS: Glucose Point of Care 149 mg/dl (65-105)
[2021-08-09] MEDS: MIDAZOLAM HCL (*CRX) 2 MG/2 ML VIAL 4 MG (15:03)
[2021-08-09 15:10] LABS: Basophils Percent Auto 0.2 % (0.2-1.2); Eosinophils Percent Auto 0.1 % (0-4.4); Hemoglobin 9.8 g/dL (14.0-18.0); Lymphocytes Absolute Auto 2.73 K/mm3 (0.9-3.2); Lymphocytes Percent Auto 27.4 % (18.3-44.2); Mean Corpuscular HGB Conc 30.6 g/dl (32-36); Mean Corpuscular Hemoglobin 30.9 pg (26-34); Mean Corpuscular Volume 100.9 fl (80-100); Mean Platelet Volume 11.8 fl (7.4-10.4); Monocytes Absolute Auto 0.7 K/mm3 (0.1-0.6); Monocytes Percent Auto 7.4 % (2.6-8.5); Neutrophils Absolute Auto 6.4 K/mm3 (1.3-6.7); Neutrophils Percent Auto 63.9 % (45.5-73.1); Nucleated Red Blood Cells Absolute Auto 0.1 K/mm3 (0.0-0.012); Nucleated Red Blood Cells Perc 0.5 % (0.0-0.2); Platelet Count Result 180 k/mm3 (150-375); Red Blood Count 3.17 M/mm3 (4.6-6.20); Red Cell Distribution Width 16.3 % (11.5-14.5)
[2021-08-09 15:12] LABS: INR 1.4; Prothrombin Time 16.7 Seconds (11.1-14.7)
[2021-08-09] MEDS: EPOETIN ALFA-EPBX 10,000 UNITS/ML VIAL 10000 UNITS SUB-Q (15:15)
[2021-08-09] MEDS: FENTANYL 2,500MCG/NS250ML(*CRX 2,500 MCG/250 ML BAG IV CONT (15:16)
[2021-08-09] MEDS: MIDAZOLAM 100MG/NS 100ML(*CRX) 100 MG/100 ML BAG IV CONT (15:17)
--- NOTE | 2021-08-09 15:21 | WPDCNINT ---
Assessment and Plan Assessment and plan (1) COPD (chronic obstructive pulmonary disease): Code(s): J44.9 - Chronic obstructive pulmonary disease, unspecified Status: Acute Assessment and Plan: see above (2) ESRD on peritoneal dialysis: Onset Date: ~05/2021 Code(s): N18.6 - End stage renal disease; Z99.2 - Dependence on renal dialysis Status: Acute Assessment and Plan: patient was scheduled for peritoneal dialysis today concerning volume overload and respiratory deterioration will attempt hemodialysis to remove fluid as patient has a tunneled dialysis catheter in place. Dialysis nurse is at bedside now (3) Acute respiratory failure: Code(s): J96.00 - Acute respiratory failure, unspecified whether with hypoxia or hypercapnia Status: Acute Assessment and Plan: Acute Respiratory failure secondary to cardiac arrest, pulmonary edema, possible aspiration pneumonia, possible hypercarbia from anesthesia and COPD Continue full mechanical ventilation support to prevent hypoxemia/hypercarbia and end organ damage. PCXR reviewed and will repeat in am. ABG pending Low tidal volume ventilation strategy to prevent volutrauma hemodialysis to remove fluid empiric Zosyn for aspiration Bronchodilators (4) Pulmonary edema: Code(s): J81.1 - Chronic pulmonary edema Status: Acute Assessment and Plan: see above (5) Aspiration pneumonia: Code(s): J69.0 - Pneumonitis due to inhalation of food and vomit Status: Acute Assessment and Plan: see above (6) Cardiac arrest: Code(s): I46.9 - Cardiac arrest, cause unspecified Status: Acute Assessment and Plan: it appears the patient had a respiratory arrest which was probably a combination of pulmonary edema which was evident on his chest x-ray, there may be a component of aspiration as chest x-ray was done post code and intubation. Patient also had received general anesthesia and was fairly drowsy and due to underlying COPD he may have became hypercarbic. As he is post intubation he quickly became arousable and started following commands. I will check an EKG, echo, serial troponins CT head once stable (7) Acute blood loss anemia: Code(s): D62 - Acute posthemorrhagic anemia Status: Acute Assessment and Plan: status post cauterization by ENT monitor hemoglobin transfuse as needed hold anticoagulation Additional Plan DVT prophylaxis - SCDs for now Stress ulcer prophylaxis - PPI Nutrition - NPO Code Status - Full Code Total Critical Care Time - 60 minutes Due to a high probability of clinically significant, life threatening deterioration, the patient required my highest level of preparedness to intervene emergently and I personally spent this critical care time directly and personally managing the patient. This critical care time included obtaining a history; examining the patient; pulse oximetry; ordering and review of studies; arranging urgent treatment with development of a management plan; evaluation of patient's response to treatment; frequent reassessment; and discussions with other providers. It was exclusive of separately billable procedures and treating other patients and teaching time. Please see Assessment and Plan section and the rest of the note for further information on patient assessment and treatment Senior Sales Director Consult Note Consult date: 08/09/21 HPI: Hu Jasmine is a 81 year old male with past medical history significant for end-stage renal disease on peritoneal dialysis, atrial fibrillation on chronic anticoagulation, coronary artery disease, asthma, COPD, hyperlipidemia, hypertension, obstructive sleep apnea on CPAP, prediabetes. Patient was brought to the emergency room on 08/06 after he had 3 syncopal episodes while at home mainly when trying to get up from sitting position and while walking to the bathroom. Patient has h
[2021-08-09 15:43] LABS: Alanine Aminotransferase 79 U/L (4-50); Alkaline Phosphatase 103 U/L (38-126); Anion Gap 20 mmol/L (8-16); Aspartate Amino Transferase 102 U/L (17-59); Bilirubin,Total 0.8 mg/dL (0.2-1.3); Calcium 9.5 mg/dL (8.4-10.2); Carbon Dioxide 13 mmol/L (22-30); Chloride 102 mmol/L (98-107); Estimated CRCL calculation 4 ml/min; Estimated Glomerular Filt Rate 4; Glucose 211 mg/dL (65-110); Phosphorus 7.1 mg/dL (2.5-4.5); Potassium 4.3 mmol/L (3.4-5.0); Sodium 135 mmol/L (137-145)
[2021-08-09 16:04] LABS: Blood Urea Nitrogen 132 mg/dL (9-20)
--- NOTE | 2021-08-09 16:40 | PM.EVENT ---
Event Note Event Note Event Note: I was called to say pt had taken a turn for the worse. I came back and pt was being coded and family wanted to stop. I discussed wiht Dr Mora and I expressed my condolences to the family.
--- NOTE | 2021-08-09 16:52 | WPDPROCEDUR ---
Procedures Central Line Placement Right Femoral: Central Line Date: 08/09/21 Central Line Time: 16:00 Performed Emergently - Given emergent patient condition, temporal constraints may have precluded informed consent.: Yes Consent: patient had a cardiac arrest and had poor IV access hence a emergent right femoral central venous catheter was placed Patient Position: supine Patient placed on monitor/pulse ox: Yes Provider Prep: mask, sterile gown, sterile gloves, Max. sterile barrier precautions, cap and hand hygiene with conventional soap/water or alcohol based hand rub Central line prep: 2% Chlorhexidine scrub Sterile US Technique with sterile gel/sterile probe covers: Yes Central line lumen inserted: triple Length (cm): 16 Depth of Insertion (cm): 16 Post Procedure: sutured in place, good blood return, all ports aspirated, flushed, capped, transparent dressing and antimicrobial product Patient tolerated procedure: well Complications: none
--- NOTE | 2021-08-09 16:53 | PDCODEBLUE ---
Code Blue Note [place] [facility] [place] 1600 Initial Rhythm on Arrival: PEA Airway Management: Initiated bagging pt on arrival Chest Compressions: Initiated upon arrival Result of Code Blue: Pt Cardiac Rhythm Post Code: PEA Code Blue Summary: patient had a cardiac arrest on the floor earlier and was transferred to ICU. Patient was intubated and at that time was following commands. He was started on sedation and hemodialysis was started at patient pulmonary edema and had now had his dialysis for couple days. Once patient was on dialysis he became hypotensive. Went to see patient and while I was in the room we were planning to give him albumin and start him on Levophed drip, he quickly became bradycardic and lost his pulse. CPR was started, patient was bed related with the Ambu bag and patient was given atropine, 2 dose of epi, 2 dose of bicarb before ROSC. At that time patient has peripheral IV stop working. his do more dialysis was discontinued the beginning of code. Used his dialysis catheter to administer his medications. Post code I started placing central venous catheter emergently in right femoral area to obtain IV access to give him IV fluid bolus and started him on vasopressor as he was still hypotensive. Patient soon again became bradycardic and lost his pulse. CPR was initiated while I was suturing the central venous catheter. And was given epinephrine. Patient received 2 doses of bicarb, 1 calcium chloride, 1 atropine and at least 6 doses of epinephrine. Patient started with PEA but had episodes of asystole. Later patient's arrived I went to talk to her in conference room. During this time patient was in VFib and was defibrillated x 1 . I updated patient's and daughter regarding events and the fact that this was his 3rd cardiac arrest. Patient's told me that he would not want to for like this. She requested to discontinue further resuscitation efforts. Tanisha was called at that time at family's request. patient had no palpable pulse in any of the femoral or carotid arteries. he was still having some electrical activity but had no heart beat or palpable pulse. He had some agonal respiratory effort but his pupils were fixed and dilated. Patient was pronounced at 1630 total critical care time 50 minutes
--- NOTE | 2021-08-09 17:43 | PC.NURSE ---
This patient, Hu Jasmine, was received from [address] [place] [id number] on 08/09/21 at 1446. Patient/family oriented to unit policies and routines
--- NOTE | 2021-08-09 17:51 | PC.NURSE ---
Dr. Mora putting in a central line and patient went bradycardic then lost pulse. Code blue called at 1613. Family here and wishes for code to be stopped. Dr. Ervin pronounced time of at 1630.
== END 2021-08-09 16:30 | disposition expired | DRG 143 ==
LOC: ANHED 22:29 → ANH3MED 08-07 07:36 → ANHICU 08-12 15:57
PROVIDERS: Internal Medicine Nephrology; Otolaryngology; Admitting Provider Internal Medicine; Emergency Provider Emergency Medicine; PCP Internal Medicine; Visit Provider Physician Assistant
DX: R04.0 Epistaxis (principal); N18.6 End stage renal disease; J96.00 Acute respiratory failure, unspecified whether with hypoxia or hypercapnia; J69.0 Pneumonitis due to inhalation of food and vomit; D62 Acute posthemorrhagic anemia; I12.0 Hypertensive chronic kidney disease with stage 5 chronic kidney disease or end stage renal disease; D63.1 Anemia in chronic kidney disease; D68.32 Hemorrhagic disorder due to extrinsic circulating anticoagulants; Z20.822 Contact with and (suspected) exposure to COVID-19; Z99.2 Dependence on renal dialysis; N25.0 Renal osteodystrophy; Z79.899 Other long term (current) drug therapy; G47.31 Primary central sleep apnea; J44.9 Chronic obstructive pulmonary disease, unspecified; I25.10 Atherosclerotic heart disease of native coronary artery without angina pectoris; Z51.5 Encounter for palliative care; Z79.01 Long term (current) use of anticoagulants; T45.515A Adverse effect of anticoagulants, initial encounter; E78.2 Mixed hyperlipidemia; R73.03 Prediabetes; I46.9 Cardiac arrest, cause unspecified; Z87.891 Personal history of nicotine dependence; E86.1 Hypovolemia; I95.9 Hypotension, unspecified; I49.01 Ventricular fibrillation
CPT/HCPCS: 31500; 36415; 36430; 36600; 80048; 80053; 80069; 82140; 82607; 82728; 82746; 82948; 83540; 83550; 83615; 84443; 84466; 85014; 85018; 85025; 85027; 85610; 85730; 86705; 86706; 86850; 86900; 86901; 86920; 87340; 92950; 93005; 94002; 94640; 99285; A9270; C1751; C9113; C9803; J0171; J0330; J0461; J0690; J1100; J2250; J2405; J2704; J3010; J3430; J7030; J7040; J7050; J7120; P9016; Q5105; U0003; U0005